=== PATIENT | male | born 1980 | race Caucasian/White ===

== ENCOUNTER 2024-09-12 10:07 | Observation (INO) ==
--- NOTE | 2024-09-12 10:22 | Emergency Department Note ---
Impression & Plan Alcoholic intoxication ED Provider Note CHIEF COMPLAINT: Alcohol intoxication HISTORY OF PRESENTING ILLNESS: The patient is a 44-year-old male who arrives to the emergency department for evaluation of alcohol intoxication. Patient arrived via EMS after attempting to go to [facility] of the cold however he was declined as he was intoxicated upon arrival. The patient then walked across the street, and made his way into an apartment complex stairwell. The police were then called, and upon police and EMS arrival, the patient was sitting on the sidewalk outside of the apartment complex. The patient does have warrants for his arrest, however courts are closed due to a holiday, and the patient cannot be evaluated due to this. EMS states the patient does have a history of chronic intoxication, with aggressive behavior. The patient shows no sign of trauma, he does appear to be visibly intoxicated, however he is agreeable to evaluation at this time. REVIEW OF SYSTEMS: See HPI for pertinent positives and pertinent negatives. ALLERGIES: See below MEDICATIONS: See below PAST MEDICAL HISTORY: See below PHYSICAL EXAM: VITALS: Vitals are noted on the nurse's note and reviewed by myself. Vital signs stable. GENERAL: 44-year-old male, in no acute distress, visibly intoxicated. SKIN: The skin was without rashes, erythema, edema, or bruising. HEAD: Normocephalic atraumatic. EYES: Pupils equal round and reactive to light and accommodation. Conjunctivae without injection, sclerae without icterus. Extraocular movements intact. NECK: Supple without nuchal rigidity. Cervical spine is nontender. HEART: Tachycardia with regular without murmurs gallops or rubs. LUNGS: Clear to auscultation bilaterally without wheezes, rales or rhonchi. No retractions or accessory muscle use. ABDOMEN: Positive bowel sounds x 4. Soft, nontender, without masses or organomegaly. Tsang sign negative. No guarding or rebound tenderness. MUSCULOSKELETAL: No muscle atrophy, erythema, or edema noted. Full range of motion without joint tenderness in all extremities. No tenderness to palpation. Strength 5/5 throughout. NEURO: Patient was alert and oriented to baseline. No focal neurological deficits. DIFFERENTIAL DIAGNOSIS: Differential diagnosis includes alcohol intoxication, drug intoxication, hypoglycemia, infectious process, intracranial bleed, psychosis, among others. ED COURSE AND MEDICAL DECISION MAKING: HISTORY FROM INDEPENDENT HISTORIAN: EMS MONITOR: Continuous environmental monitoring technician: Order was placed for continuous environmental monitoring technician. Patient was placed on the environmental monitoring technician and continuous pulse ox. Patient was noted to be in normal sinus rhythm at an initial rate of 110 bpm per my interpretation. INTERPRETATION OF LABS: I interpreted the labs with full lab results as below in the lab section of this note. Pertinent lab results discussed in the MDM section below. CHRONIC MEDICAL/SOCIAL CONDITIONS AFFECTING CARE: Alcohol abuse, alcohol intoxication MDM SUMMARY: The patient is a cooperative, 44-year-old male who arrives to the emergency department for evaluation of the above-stated complaint. Initial workup for alcohol intoxication was performed including CBC, CMP, and EtOH. CBC shows no leukocytosis, with pancytopenia. CMP shows hypokalemia 3.4, elevated anion gap 19. Hypocalcemia, 8.4. Total bili 3.4, AST 129, alkaline phosphatase 150. EtOH 473.6. The patient was watched for the course of 5 hours, and allowed to rest, eat, and taken oral fluids. Upon reevaluation I spoke with the patient regarding alcohol detox, with medical management. The patient states he would like to quit drinking, and is agreeable to admission to the hospital for medical detox. Orders were placed for a loss scale, cardiac monitoring, as well as thiamine, multivitamin, and gabapentin administration. I spoke with Dr. Alvares, who agreed to speak with the patient, and accept him for admission. Please refer to his documentation for further patient workup and care DIAGNOSIS: Alcohol intoxication, detox The chart was completed utilizing [employer] Speech voice recognition software. Grammatical errors, random word insertions, pronoun errors, and incomplete sentences are an occasional consequence of this system due to software limitations, ambient noise, and hardware issues. Any formal questions or concerns about the content, text, or information contained within the body of this dictation should be directly addressed to the provider for clarification. TREATMENT PLAN/DISCHARGE INSTRUCTIONS: Admission to hospitalist service for medical detox Past Med/Surg History Problem List (Updated 09/12/24 @ 16:55 by DEREK Payton) Alcohol abuse (Acute) Alcohol abuse (Acute) Alcohol abuse (Acute) Alcohol overdose Alcohol withdrawal syndrome (Acute) Alcoholic intoxication (Acute) Alcoholic intoxication (Acute) Alcoholic intoxication (Acute) Alcoholic intoxication (Acute) Alcoholism /alcohol abuse (Acute) Alcoholism /alcohol abuse (Acute) Head injury (Acute) Overdose (Acute) Social History Smoking Status: Never smoker Feels Safe at Home: Yes Allergies Allergies Allergy/AdvReac Type Severity Reaction Status Date / Time horse dander Allergy Mild HAPPENED Verified 12/18/18 23:05 A CHILD Home Meds Home Medications Medication Instructions Recorded Confirmed No Known Home Medications 09/12/24 09/12/24 Results & Data (ED) Vital Signs Vital Signs - 24 hr 09/12/24 10:07 09/12/24 10:22 09/12/24 10:35 Temperature 36.9 C Temperature Source Oral Pulse Rate 110 H Pulse Rate [Apical] Respiratory Rate 19 Respiratory Effort / Characteristics Non-Labored Spontaneous Respiratory Depth Normal Respiratory Pattern Regular Blood Pressure 109/77 Blood Pressure [Right Arm] Blood Pressure Mean 87 Blood Pressure Mean [Right Arm] Blood Pressure Position [Right Arm] Pulse Oximetry 95 Oxygen Delivery Method Room Air Room Air Room Air Sepsis Recent Fever Within 48 Hours No Sepsis New/Unexplained Change in Mental Status No Sepsis Action Taken by Nursing No Action Required 09/12/24 10:35 09/12/24 10:41 09/12/24 12:30 Temperature Temperature Source Pulse Rate 108 H 106 H Pulse Rate [Apical] 108 H Respiratory Rate 12 15 Respiratory Effort / Characteristics Respiratory Depth Respiratory Pattern Blood Pressure 99/70 L Blood Pressure [Right Arm] 133/88 Blood Pressure Mean 83 Blood Pressure Mean [Right Arm] 103 Blood Pressure Position [Right Arm] Semi-fowlers Pulse Oximetry 94 96 Oxygen Delivery Method Room Air Room Air Sepsis Recent Fever Within 48 Hours Sepsis New/Unexplained Change in Mental Status Sepsis Action Taken by Nursing 09/12/24 14:30 09/12/24 15:46 Temperature Temperature Source Pulse Rate 98 H Pulse Rate [Apical] 90 Respiratory Rate 15 Respiratory Effort / Characteristics Respiratory Depth Respiratory Pattern Blood Pressure Blood Pressure [Right Arm] 154/79 H Blood Pressure Mean Blood Pressure Mean [Right Arm] 104 Blood Pressure Position [Right Arm] Semi-fowlers Pulse Oximetry 91 Oxygen Delivery Method Room Air Sepsis Recent Fever Within 48 Hours Sepsis New/Unexplained Change in Mental Status Sepsis Action Taken by [facility] Medications Current Medication List: was personally reviewed by me Laboratory Data Attestation: I reviewed the patient's lab results. 09/12/24 10:24 09/12/24 10:24 Lab Results 06/19/25 Range/Units 10:24 WBC 7.98 (4.8-10.8) K/ul RBC 2.84 L (4.70-6.10) M/uL Hgb 9.9 L (14.0-18.0) g/dl Hct 28.0 L (42.0-52.0) % MCV 98.6 (80.0-100.0) fL MCH 34.9 H (25.0-34.0) pg MCHC 35.4 (32.0-36.0) g/dL RDW Std Deviation 49.4 H (36.4-46.3) fL RDW Coeff of Milagros 13.8 (11.5-14.5) % Plt Count 61 L (130-400) K/uL MPV 11.0 (9.4-12.4) fL Immature Gran % (Auto) 0.5 % Neut % (Auto) 70.1 % Lymph % (Auto) 15.9 % [place] % (Auto) 10.2 % Eos % (Auto) 1.9 % Baso % (Auto) 1.4 % Neut # (Auto) 5.60 (1.40-6.50) K/uL Lymph # (Auto) 1.27 (1.20-3.40) K/uL [place] # (Auto) 0.81 H (0.11-0.59) K/uL Eos # (Auto) 0.15 (0.00-0.50) K/uL Baso # (Auto) 0.11 (0.00-0.20) K/uL Immature Gran # (Auto) 0.04 (0.01-0.20) K/uL Platelet Estimate Decreased L (Normal) Target Cells 1+ Sodium 139 (136-145) mmol/L Potassium 3.4 L (3.5-5.1) mmol/L Chloride 98 (98-107) mmol/L Carbon Dioxide 22 (21-32) mmol/L Anion Gap 19 H (3-11) BUN 10 (6-23) mg/dl Creatinine 0.79 (0.6-1.4) mg/dl Est Cr Clr Drug Dosing 120.5 ml/min eGFR 110.95 BUN/Creatinine Ratio 12.7 (10-20) Glucose 97 (70-99(Fasting)) mg/dl Calcium 8.4 L (8.6-10.3) mg/dl Total Bilirubin 3.4 H (0.2-1.0) mg/dl AST 129 H (13-39) U/L ALT 24 (7-52) U/L Alkaline Phosphatase 150 H (34-104) U/L Total Protein 7.0 (6.0-8.3) gm/dl Albumin 3.8 (3.4-5.0) gm/dl Globulin 3.2 (2.5-4.0) gm/dl Albumin/Globulin Ratio 1.2 (0.9-2) Ethyl Alcohol mg/dL 473.6 H (<10.0) mg/dl Administered Medications Multivitamins (Multivitamin Tab) 1 tab PO QAM KENNY Stop: 10/12/24 15:59 Last Admin: 09/12/24 16:28 Dose: 1 tab Documented By: CEF Discontinued Medications Gabapentin (Gabapentin 1200mg Alcohol Withdrawal Load) 1 each PO NOW STA; Protocol Stop: 09/12/24 15:51 Last Admin: 09/12/24 16:30 Dose: Not Given Documented By: CEF Gabapentin (Gabapentin 600 Mg Tab) 1,200 mg PO NOW ONE Stop: 09/12/24 15:51 Last Admin: 09/12/24 16:18 Dose: 1,200 mg Documented By: CEF Thiamine HCl 500 mg/ Sodium (Chloride) 55 mls @ 210 mls/hr IV NOW ONE Stop: 09/12/24 16:05 Last Admin: 09/12/24 16:28 Dose: 210 mls/hr Documented By: CEF Imaging Data Attestation: I personally reviewed and interpreted this imaging study as follows: Discharge Plan Visit Data Chief Complaint: Alcohol Intoxication ED Provider: Jim Go ED Midlevel Provider: Daria Dodge Discharge Problem: Alcoholic intoxication Condition: Fair Forms Stand Alone Forms: My [facility] Prescriptions Prescriptions: No Action No Known Home Medications Referrals Referrals: PCP,NO [Primary Care Provider] -
[2024-09-12 11:06] LABS: Albumin Globulin Ratio 1.2 (0.9-2); Albumin Level 3.8 gm/dl (3.4-5.0); BUN Creatinine Ratio 12.7 (10-20); Bilirubin,Total 3.4 mg/dl (0.2-1.0); Calcium 8.4 mg/dl (8.6-10.3); Creatinine Clr Calc Pharmacy 120.5 ml/min; Globulin 3.2 gm/dl (2.5-4.0); Potassium 3.4 mmol/L (3.5-5.1)
[2024-09-12 11:14] LABS: Hemoglobin 9.9 g/dl (14.0-18.0); Mean Corpuscular Hemoglobin 34.9 pg (25.0-34.0); Mean Corpuscular Hgb Conc 35.4 g/dL (32.0-36.0); Mean Corpuscular Volume 98.6 fL (80.0-100.0); Platelet Count 61 K/uL (130-400); RDW Coefficient of Variation 13.8 % (11.5-14.5); RDW Standard Deviation 49.4 fL (36.4-46.3); Red Blood Count 2.84 M/uL (4.70-6.10); White Blood Count 7.98 K/ul (4.8-10.8)
[2024-09-12 11:40] LABS: Basophils # (auto) 0.11 K/uL (0.00-0.20); Basophils % (auto) 1.4 %; Eosinophils # (auto) 0.15 K/uL (0.00-0.50); Eosinophils % (auto) 1.9 %; Immature Granulocytes # (auto) 0.04 K/uL (0.01-0.20); Immature Granulocytes % (auto) 0.5 %; Lymphocytes # (auto) 1.27 K/uL (1.20-3.40); Lymphocytes % (auto) 15.9 %; Monocytes # (auto) 0.81 K/uL (0.11-0.59); Monocytes % (auto) 10.2 %; Neutrophils % (auto) 70.1 %; Platelet Estimate Decreased (Normal); Target Cells 1+
[2024-09-12] MEDS: GABAPENTIN 600 MG TAB PO ONE (16:18)
[2024-09-12] MEDS: MULTIVITAMIN TAB PO SCH (16:28)
[2024-09-12] MEDS: THIAMINE HCL 500 MG in SODIUM CHLORIDE 0.9% 50 ML IV ONE (16:28)
[2024-09-12] MEDS: GABAPENTIN 1200MG ALCOHOL WITHDRAWAL LOAD PO STA (16:30)
[2024-09-12] MEDS: FOLIC ACID 1 MG in SYRINGE 9.8 ML IV STA (17:41)
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
[2024-09-12 18:15] LABS: Magnesium 1.2 mg/dl (1.7-2.4)
--- NOTE | 2024-09-12 18:32 | CT Scan Report ---
Technique: Axial computed tomography images were obtained of the brain without intravenous contrast. Findings: There is diffuse cerebral atrophy, within expected limits for the patient's age. Areas of decreased attenuation are seen within the periventricular white matter, likely representing chronic small vessel ischemic disease. There is no definite sign of acute or old infarction. No intracranial hemorrhage is evident. No definite mass lesion is seen on this noncontrast examination. There is no midline shift or other form of herniation. No hydrocephalus is seen. No fracture is identified. The orbits and the visualized paranasal sinuses appear unremarkable. The mastoid air cells appear clear. Impression: 1. Cerebral atrophy and chronic small vessel ischemic disease 2. Otherwise unremarkable noncontrast CT of the brain Electronically signed by Eliot Ch 09-12-2024 6:32 PM
--- NOTE | 2024-09-12 18:40 | CT Scan Report ---
Technique: Axial computed tomography images were obtained of the abdomen and pelvis without intravenous contrast. No prior examination is available for comparison Findings: There is fatty infiltration of the liver and suspected mild cirrhosis. There is a recannulized umbilical vein and there are abdominal varices, consistent with portal hypertension. There is a possible 1.7 cm mass in the right hepatic lobe. There is also a 1 cm high attenuation area in the posterior liver dome. There are small gallstones. There is no definite sign of acute cholecystitis. No bile duct dilatation is noted. The spleen is of normal size. No focal splenic lesion is evident. The pancreas appears normal with no sign of acute or chronic pancreatitis and no mass lesion noted. The pancreatic duct is of normal caliber. The adrenal glands appear unremarkable. No renal or proximal ureteral calculi are seen. There is no hydronephrosis or perinephric stranding. No definite renal mass lesion is identified. The aorta is of normal caliber. No abdominal adenopathy is seen. The stomach appears normal. There is no sign of small bowel obstruction. There is suspected mild wall thickening of the jejunum. There is mild diverticulosis without definite diverticulitis. There is no sign of appendicitis. No free intraperitoneal fluid or air is identified. No distal ureteral or bladder calculi are seen. No obvious bladder mass lesion is evident. The iliac arteries are of normal caliber. No pelvic adenopathy is noted. The lungs bases appear clear. Mild thoracolumbar degenerative disc disease is seen. No fracture is identified. No focal osseous lesion is seen Impression: 1. Cirrhosis and portal hypertension 2. Possible masses in the right hepatic lobe. Liver protocol abdominal MRI with and without contrast could be obtained for further evaluation 3. Cholelithiasis without definite acute cholecystitis 4. Suspected mild small bowel wall thickening, admitted due to infectious enteritis or inflammatory bowel disease 5. Diverticulosis without definite diverticulitis ACT 112: Positive. There are findings on this exam that require communication between the performing entity and the patient following Patient Test Result Information Act ([place] ACT 112) guidelines. Electronically signed by Eliot Ch 09-12-2024 6:40 PM
--- NOTE | 2024-09-12 18:45 | CT Scan Report ---
Technique: Axial computed tomography images were obtained of the cervical spine without intravenous contrast. Sagittal and coronal reconstructions were obtained Findings: No fracture is identified. No listhesis is seen. No focal osseous lesion is evident. 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 There is no spinal stenosis. The neural foramen are patent At C3-4, no disc herniation is identified. There is no spinal stenosis. The neural foramen are patent At C4-5, there is a mild disc bulge. There is no spinal stenosis. The neural foramen are patent At C5-6, there is mild spinal stenosis due to a disc bulge and a right paracentral disc protrusion. The neural foramen are patent At C6-7, there is a disc bulge without spinal stenosis. The neural foramen are patent At C7-T1, there is a mild disc bulge. There is no spinal stenosis. The neural foramen are patent The lung apices appear clear. The visualized soft tissues of the neck appear unremarkable. No foreign body is seen Impression: 1. No definite cervical spine fracture 2. Mild spinal stenosis at C5-6 Electronically signed by Eliot Ch 09-12-2024 6:45 PM
--- NOTE | 2024-09-12 18:56 | CT Scan Report ---
Technique: Axial computed tomography images were obtained of the lumbar spine without intravenous contrast. Sagittal and coronal reconstructions were obtained Findings: No definite acute fracture is identified. There is deformity of the right transverse process of L4 that may be due to an old fracture. No listhesis is seen. No focal osseous lesion is evident. There is no definite sign of osteomyelitis At L1-2, there is a mild disc bulge. There is no spinal stenosis. The neural foramen are patent At L2-3, there is a disc bulge without spinal stenosis. There is mild bilateral neural foramen narrowing At L3-4, there is a disc bulge without spinal stenosis. There is mild bilateral neural foramen narrowing At L4-5, there is a disc bulge without spinal stenosis. There is right greater than left neural foramen narrowing that may affect the right L4 nerve root At L5-S1, there is a disc bulge without spinal stenosis. There is mild bilateral neural foramen narrowing Impression: 1. No definite acute lumbar spine fracture 2. Old fracture of the right transverse process of L4 3. Lumbar disc bulges without spinal stenosis 4. Right L4-5 neural foramen narrowing that may affect the right neural nerve root. Less severe neural foramen narrowing is seen at other levels ACT 112: Positive. There are findings on this exam that require communication between the performing entity and the patient following Patient Test Result Information Act ([place] ACT 112) guidelines. Electronically signed by Eliot Ch 09-12-2024 6:55 PM
[2024-09-12] MEDS: FAMOTIDINE 20MG IV PUSH 20 MG/5 ML SYR IV SCH (19:10)
[2024-09-12] MEDS: MAGNESIUM SULFATE / D5W 1 GM/100 ML BAG IV SCH (20:32)
[2024-09-12] MEDS ORDERED: ONDANSETRON INJ 2 MG/ML 2 ML VIAL IV PRN (21:47)
[2024-09-12] MEDS ORDERED: MELATONIN 3 MG TAB PO PRN (21:47)
[2024-09-12] MEDS ORDERED: LORazepam 2 MG/1 ML VIAL IV PRN (21:47)
[2024-09-13] MEDS: THIAMINE HCL 500 MG in SODIUM CHLORIDE 0.9% 50 ML IV SCH (00:17)
[2024-09-13] MEDS: GABAPENTIN 600 MG TAB PO SCH ×2 (00:17→12:15)
[2024-09-13 07:09] LABS: Basophils # (auto) 0.07 K/uL (0.00-0.20); Basophils % (auto) 1.3 %; Eosinophils # (auto) 0.25 K/uL (0.00-0.50); Eosinophils % (auto) 4.6 %; Hematocrit (blood only) 27.4 % (42.0-52.0); Hemoglobin 9.4 g/dl (14.0-18.0); Immature Granulocytes # (auto) 0.01 K/uL (0.01-0.20); Immature Granulocytes % (auto) 0.2 %; Lymphocytes # (auto) 1.31 K/uL (1.20-3.40); Lymphocytes % (auto) 23.9 %; Mean Corpuscular Hemoglobin 34.4 pg (25.0-34.0); Mean Corpuscular Hgb Conc 34.3 g/dL (32.0-36.0); Mean Corpuscular Volume 100.4 fL (80.0-100.0); Mean Platelet Volume 10.5 fL (9.4-12.4); Monocytes # (auto) 0.45 K/uL (0.11-0.59); Monocytes % (auto) 8.2 %; Neutrophils # (auto) 3.39 K/uL (1.40-6.50); Neutrophils % (auto) 61.8 %; Platelet Count 41 K/uL (130-400); RDW Coefficient of Variation 13.7 % (11.5-14.5); RDW Standard Deviation 50.4 fL (36.4-46.3); Red Blood Count 2.73 M/uL (4.70-6.10); White Blood Count 5.48 K/ul (4.8-10.8)
[2024-09-13 07:23] LABS: Albumin Globulin Ratio 1.2 (0.9-2); Albumin Level 3.4 gm/dl (3.4-5.0); Bilirubin,Total 2.8 mg/dl (0.2-1.0); Calcium 7.9 mg/dl (8.6-10.3); Creatinine Clr Calc Pharmacy 179.6 ml/min; Globulin 2.8 gm/dl (2.5-4.0); Magnesium 1.6 mg/dl (1.7-2.4); Potassium 3.3 mmol/L (3.5-5.1); Total Protein 6.2 gm/dl (6.0-8.3)
[2024-09-13 07:49] LABS: INR 1.2 (0.9-1.1)
[2024-09-13 08:28] LABS: Phosphorus 4.5 mg/dl (2.5-4.9)
[2024-09-13] MEDS: FOLIC ACID 1 MG in SYRINGE 9.8 ML IV SCH (08:52)
[2024-09-13] MEDS: POTASSIUM CHLORIDE CRTAB 20 MEQ TABCR PO STA (08:52)
[2024-09-13] MEDS: CALCIUM GLUCONATE 1,000 MG/60 ML BAG IV STA (08:52)
[2024-09-13] MEDS: MAGNESIUM SULFATE / D5W 1 GM/100 ML BAG IV SCH (09:39)
[2024-09-13 11:34] LABS: C Reactive Protein 1.3 mg/dl (0-0.5)
[2024-09-13 13:49] LABS: Appearance Urine Clear (Clear); Bacteria Urine Automated None Seen (None Seen); Bilirubin Urine 1+ (Negative); Blood Urine Negative (Negative); Cast Urine Automated 0-2 /lpf (0-2); Color Urine Dark Yellow; Glucose Urine UA Negative (Negative); Ketones Urine 1+ (Negative); Leukocyte Esterase Urine 1+ (Negative); Nitrite Urine Negative (Negative); Protein Urine Negative (Negative); RBC Urine Automated 0-2 /hpf (0-2); Specific Gravity Urine 1.022 (1.000-1.030); Urobilinogen Urine Positive (Negative)
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
[2024-09-13 16:04] VITALS: PULSE 102; RESP 18; TEMP 99; O2SAT 97
[2024-09-13 18:22] VITALS: BP 101/69
[2024-09-14] MEDS ORDERED: GABAPENTIN 600 MG TAB PO SCH (16:00)
[2024-09-16] MEDS ORDERED: GABAPENTIN 600 MG TAB PO SCH (04:00)
== END 2024-09-13 18:32 | DRG 896 ==
LOC: ED 10:07 → INTOOBSV 17:55 → 2S 17:55 → SUATTDRO 17:55 → 2S 20:30

== ENCOUNTER 2024-10-02 23:39 | Inpatient (IN) ==
--- NOTE | 2024-10-03 00:04 | Emergency Department Note ---
Impression & Plan Alcoholic intoxication, At risk for alcohol withdrawal, Hypomagnesemia, Hypokalemia, Thrombocytopenia, Alcoholic hepatitis ED Provider Note NAME: BARRY FERRELL AGE: 44 SEX: M : 1980 ARRIVES VIA: Ambulance INFORMANT: Patient ED PROVIDER(S): Jim Go MD CHIEF COMPLAINT: Intoxication, weakness, referred by police PLAN: Disposition: Admit MEDICAL DECISION MAKING: The patient is a 44-year-old gentleman with a past medical history of alcoholism, alcoholic hepatitis, thrombocytopenia, hypomagnesemia, homelessness who presents to the emergency department via EMS after patient was found intoxicated [place] outside [place] by police. Patient reports he was a couple blocks from his friend's house apartment where he was going to stay but reports he decided to go along with police's recommendation to come to the hospital. Patient reports he has ongoing generalized weakness as he has had since his recent admission on 09/12-09/13 where he was noted to have transaminitis consistent with chronic alcoholic hepatitis as well as hypomagnesemia and hypokalemia. Patient denies any falls since his prior admission. Denies any fevers, chills, cough congestion, chest pain or shortness of breath. He reports he does have a room at his father's house but is "giving him space". He reports he [place] sleep in the park last night with friends. On evaluation the patient is intoxicated appearing, unkempt but no acute distress, afebrile heart rate in the 90s and vital signs otherwise stable. He appears clinically dry. He exhibits no focal neurologic deficits. EKG without overt acute ischemia. WBC within normal limits. H/H 9.5/27.3 similar to prior. Platelets 71K, also similar to prior. INR 1.4, increased from prior admission of 1.2. Chemistry without metabolic acidosis. Potassium 2.8 and magnesium 1.0, with IV repletion initiated. LFTs again elevated similar to prior admission with total bilirubin 4.3, direct eleven 2.2 and AST 147 with ALT within normal limits. High- sensitivity troponin 6.2, wnl. TSH within normal limits. Medical alcohol 374. UA pending. Patient was treated with IV hydration, IV thiamine. Given the patient's electrolyte abnormalities in setting of his generalized weakness patient agrees plan for admission for further management. Case was discussed with Dr. Pérez, [facility] [place] [place] hospitalist, who will evaluate the patient for admission. Further management per admitting team. Triage Nursing notes reviewed and agree them. Prior/external medical records reviewed Vital Signs: reviewed Differential diagnosis: Infection, dehydration, metabolic abnormality, hypo/hyperglycemia, electrolyte disturbance, anemia, hypoxia, cardiac sources, intracerebral event, toxicologic, neurologic, as well as other pathologies. ER treatment provided: See below. Diagnostics interpreted by me: ECG: Normal sinus rhythm with sinus arrhythmia, 73 bpm, no ectopy, nonspecific ST abnormality, no overt ST elevation or depression, QTc 491, QRS 84 Cardiac Monitoring: An order for continuous cardiac monitoring was placed and demonstrated Normal sinus rhythm with sinus arrhythmia, 73 bpm, no ectopy. Laboratory studies: See below Imaging studies: See below Consultation(s): Dr. Pérez [facility] [place] hospitalist. HPI: Per MDM. ROS: See above HPI for pertinent positives & negatives. A total of 10 systems reviewed and were otherwise negative. VITALS:See Below PHYSICAL EXAMINATION: GENERAL: Awake, alert, unkempt, intoxicated appearing, in no distress HENT: Normocephalic, atraumatic. Oropharynx with dry mucous membranes and otherwise unremarkable EYES: Normal conjunctiva. Sclera non-icteric. EOMI. No nystamgus. PEARRL. NECK: Supple. No nuchal rigidity. FROM. No JVD. RESPIRATORY: Clear to auscultation. CARDIAC: Regular rate, normal rhythm. Extremities warm and well perfused. Pulses equal. ABDOMEN: Soft, non-distended. No tenderness to palpation. No rebound or guarding. No masses. MUSCULOSKELETAL: Chest examination reveals no tenderness. The back is symmetrical on inspection without obvious abnormality. There is no CVA tenderness to palpation. No joint edema. LOWER EXTREMITIES: Calves are equal size bilaterally and non-tender. No edema. No discoloration. NEURO: Cranial nerves II-XII grossly intact. 5/5 strength and SILT x 4 extremities. Cerebellar function intact including [id number]. SKIN: No rash or jaundice noted. Jim Go MD Past Med/Surg History Problem List (Updated 10/04/24 @ 03:31 by Jim Go MD) At risk for alcohol withdrawal (Acute) Diarrhea Homeless Hypomagnesemia (Acute) Hypokalemia (Acute) Thrombocytopenia (Acute) Anemia Alcoholic hepatitis (Acute) Alcoholic intoxication (Acute) Medical History Tobacco use Bilateral leg numbness Overdose Head injury Alcoholism /alcohol abuse Social History Smoking Status: Current some day smoker Tobacco Type: Cigarettes Hx Alcohol Use: Yes Alcohol type: hard liquor Alcohol type Comment: started high school years Alcohol Intake Frequency: 4 or More x per/Week Hx Substance Use: Yes Last Used Substance: Unknown Preferred Language: Nicaraguan Communication Ability: Effective Sales Associate Required: No Beliefs That Will Affect Care: None marital status: Single Current Living Situation: Homeless Feels Safe at Home: Yes Assistive Devices: None Allergies Allergies Allergy/AdvReac Type Severity Reaction Status Date / Time horse dander Allergy Mild HAPPENED Verified 10/03/24 01:45 A CHILD Home Meds Previous Rx's Medication Instructions Recorded folic acid 1 mg tablet 1 mg PO DAILY #30 tabs 09/13/24 gabapentin 600 mg tablet 600 mg PO Q12H #2 tabs 09/13/24 gabapentin 600 mg tablet 600 mg PO Q24H #1 tab 09/13/24 gabapentin 600 mg tablet 600 mg PO Q8H #2 tabs 09/13/24 multivitamin with folic acid 400 1 tab PO QAM #30 tabs 09/13/24 mcg tablet (Daily-Mateus (with folic acid)) thiamine HCl (vitamin B1) 250 mg 250 mg PO BID #60 tabs 09/13/24 tablet Results & Data (ED) Vital Signs Vital Signs - 24 hr 10/02/24 23:32 10/02/24 23:53 10/03/24 00:17 Temperature 36.5 C Temperature Source Oral Pulse Rate 94 H Pulse Rate [Apical] Pulse Rhythm Regular Pulse Rhythm [Apical] Pulse Strength Normal Pulse Strength [Apical] Respiratory Rate 17 Respiratory Effort / Characteristics Non-Labored Respiratory Depth Normal Respiratory Pattern Regular Blood Pressure 108/77 Blood Pressure [Right Arm] Blood Pressure Mean 87 Blood Pressure Mean [Right Arm] Blood Pressure Position Sitting Blood Pressure Position [Right Arm] Pulse Oximetry 99 99 99 Oxygen Delivery Method Room Air Room Air Room Air Sepsis Recent Fever Within 48 Hours No Sepsis New/Unexplained Change in Mental Status N/A Sepsis Action Taken by Nursing No Action Required 10/03/24 01:00 10/03/24 01:32 Temperature Temperature Source Pulse Rate 91 H Pulse Rate [Apical] 90 Pulse Rhythm Pulse Rhythm [Apical] Regular Pulse Strength Pulse Strength [Apical] Normal Respiratory Rate 18 Respiratory Effort / Characteristics Non-Labored Respiratory Depth Normal Respiratory Pattern Regular Blood Pressure Blood Pressure [Right Arm] 108/77 Blood Pressure Mean Blood Pressure Mean [Right Arm] 87 Blood Pressure Position Blood Pressure Position [Right Arm] Lying Pulse Oximetry 97 Oxygen Delivery Method Room Air Sepsis Recent Fever Within 48 Hours Sepsis New/Unexplained Change in Mental Status Sepsis Action Taken by Nursing Laboratory Data Attestation: I reviewed the patient's lab results. 10/04/24 00:00 10/03/24 14:06 Lab Results 10/03/24 10/03/24 Range/Units 00:12 00:41 WBC 6.22 (4.8-10.8) K/ul RBC 2.70 L (4.70-6.10) M/uL Hgb 9.5 L (14.0-18.0) g/dl Hct 27.3 L (42.0-52.0) % MCV 101.1 H (80.0-100.0) fL MCH 35.2 H (25.0-34.0) pg MCHC 34.8 (32.0-36.0) g/dL RDW Std Deviation 60.9 H (36.4-46.3) fL RDW Coeff of Milagros 16.6 H (11.5-14.5) % Plt Count 71 L (130-400) K/uL MPV 10.1 (9.4-12.4) fL Immature Gran % (Auto) 0.5 % Neut % (Auto) 59.1 % Lymph % (Auto) 23.2 % [place] % (Auto) 13.7 % Eos % (Auto) 2.1 % Baso % (Auto) 1.4 % Neut # (Auto) 3.68 (1.40-6.50) K/uL Lymph # (Auto) 1.44 (1.20-3.40) K/uL [place] # (Auto) 0.85 H (0.11-0.59) K/uL Eos # (Auto) 0.13 (0.00-0.50) K/uL Baso # (Auto) 0.09 (0.00-0.20) K/uL Immature Gran # (Auto) 0.03 (0.01-0.20) K/uL PT 15.1 H (9.0-12.0) Seconds INR 1.4 H (0.9-1.1) Sodium 143 (136-145) mmol/L Potassium 2.8 L (3.5-5.1) mmol/L Chloride 101 (98-107) mmol/L Carbon Dioxide 29 (21-32) mmol/L Anion Gap 13 H (3-11) BUN 16 (6-23) mg/dl Creatinine 0.87 (0.6-1.4) mg/dl Est Cr Clr Drug Dosing 98.1 ml/min eGFR 107.77 BUN/Creatinine Ratio 18.4 (10-20) Glucose 101 H (70-99(Fasting)) mg/dl Lactate 3.1 H* (0.4-2.0) mmol/L Calcium 8.1 L (8.6-10.3) mg/dl Phosphorus 4.2 (2.5-4.9) mg/dl Magnesium 1.0 L (1.7-2.4) mg/dl Total Bilirubin 4.3 H (0.2-1.0) mg/dl Direct Bilirubin 2.2 H (0-0.2) mg/dl AST 147 H (13-39) U/L ALT 32 (7-52) U/L Alkaline Phosphatase 137 H (34-104) U/L Total Creatine Kinase 127 (30-223) U/L Troponin I High Sens 6.2 (0-20) pg/ml Total Protein 6.7 (6.0-8.3) gm/dl Albumin 3.5 (3.4-5.0) gm/dl Globulin 3.2 (2.5-4.0) gm/dl Albumin/Globulin Ratio 1.1 (0.9-2) TSH 3.911 (0.300-4.500) uIu/ml Urine Color [place] Urine Appearance Clear (Clear) Urine pH 6.0 (4.5-7.5) Ur Specific [place] 1.022 (1.000-1.030) Urine Protein 1+ H (Negative) Urine Glucose (UA) Negative (Negative) Urine Ketones Trace H (Negative) Urine Blood Negative (Negative) Urine Nitrite Positive A (Negative) Urine Bilirubin 2+ H (Negative) Urine Urobilinogen Positive H (Negative) Ur Leukocyte Esterase 1+ H (Negative) Urine WBC (Auto) 0-5 (0-5) /hpf Urine RBC (Auto) 11-20 H (0-2) /hpf U Hyaline Cast (Auto) 11-20 H (0-2) /lpf U Epithel Cells (Auto) 3-5 H (0-2) /hpf Urine Bacteria (Auto) None Seen (None Seen) Hyaline Casts Present A (None Presnt) /lpf Urine Mucus Present A (None Prsent) Urine Comment Ethyl Alcohol mg/dL 374.4 H (<10.0) mg/dl Administered Medications Chlordiazepoxide HCl (Chlordiazepoxide Hcl 10 Mg Cap) 10 mg PO TID [facility] Stop: 11/02/24 08:59 Last Admin: 10/03/24 20:10 Dose: 10 mg Documented By: Admin: 10/03/24 14:30 Dose: 10 mg Documented By: Admin: 10/03/24 11:04 Dose: 10 mg Documented By: ROCIO Gabapentin (Gabapentin 100 Mg Cap) 100 mg PO TID [facility] Stop: 11/02/24 13:59 Last Admin: 10/03/24 20:10 Dose: 100 mg Documented By: Admin: 10/03/24 14:30 Dose: 100 mg Documented By: ROCIO Lactated Ringer's (Lr) 1,000 mls @ 80 mls/hr IV .[id number] [facility] Stop: 10/04/24 05:33 Last Admin: 10/03/24 20:10 Dose: 80 mls/hr Documented By: Infusion: 10/03/24 18:17 Dose: Infused Documented By: Admin: 10/03/24 05:47 Dose: 80 mls/hr Documented By: OBED Thiamine HCl 100 mg/ Syringe 10 mls @ 2 [facility] [place] [facility] [place]: 11/02/24 08:59 Last Admin: 10/03/24 09:31 Dose: 2 mls/min Documented By: ROCIO Folic Acid 1 mg/ Syringe 10 mls @ 5 mls/min IV QAM [facility] Stop: 11/02/24 08:59 Last Admin: 10/03/24 09:31 Dose: 5 mls/min Documented By: ROCIO Ceftriaxone Sodium (Rocephin) 1,000 mg in 50 mls @ 100 mls/hr IV Q24H [facility]NY Stop: 10/06/24 00:00 Last Infusion: 10/04/24 01:03 Dose: Infused Documented By: Admin: 10/04/24 00:27 Dose: 100 mls/hr Documented By: OBED Lorazepam (Lorazepam 2 Mg/1 Ml Vial) 1 mg IV UD PRN; Protocol PRN Reason: EtOH Withdrawal AWSS Score 6,7 Stop: 11/02/24 04:33 Last Admin: 10/04/24 00:07 Dose: 1 mg Documented By: Admin: 10/03/24 21:42 Dose: 1 mg Documented By: OBED Discontinued Medications Sodium Chloride (Nss) 2,000 mls @ 999 mls/hr IV .Q2H1M [facility] Stop: 10/03/24 02:15 Last Infusion: 10/03/24 02:59 Dose: Infused Documented By: Admin: 10/03/24 00:48 Dose: 999 mls/hr Documented By: ELIZABETH Thiamine HCl 500 mg/ Sodium (Chloride) 55 mls @ 210 mls/hr IV NOW STA Stop: 10/03/24 00:17 Last Infusion: 10/03/24 01:17 Dose: Infused Documented By: Admin: 10/03/24 00:48 Dose: 210 mls/hr Documented By: ELIZABETH Magnesium Sulfate/Dextrose (Magnesium Sulfate / D5w) 1 gm in 100 mls @ 100 mls/hr IV Q1H KENNY Stop: 10/03/24 03:22 Last Infusion: 10/03/24 05:34 Dose: Infused Documented By: Admin: 10/03/24 04:06 Dose: 100 mls/hr Documented By: Infusion: 10/03/24 04:05 Dose: Infused Documented By: Admin: 10/03/24 03:05 Dose: 100 mls/hr Documented By: ELIZABETH Magnesium Sulfate/Dextrose (Magnesium Sulfate / D5w) 1 gm in 100 mls @ 100 mls/hr IV NOW STA Stop: 10/03/24 02:22 Last Admin: 10/03/24 05:43 Dose: Not Given Documented By: OBED Potassium Chloride (K Vikram / Wtr) 10 meq in 100 mls @ 100 mls/hr IV Q1H KENNY Stop: 10/03/24 03:29 Last Infusion: 10/03/24 05:34 Dose: Infused Documented By: Admin: 10/03/24 04:06 Dose: 100 mls/hr Documented By: Infusion: 10/03/24 04:04 Dose: Infused Documented By: Admin: 10/03/24 03:04 Dose: 100 mls/hr Documented By: ELIZABETH Magnesium Sulfate/Dextrose (Magnesium Sulfate / D5w) 1 gm in 100 mls @ 50 mls/hr IV Q2H KENNY Stop: 10/03/24 12:33 Last Infusion: 10/03/24 16:32 Dose: Infused Documented By: Admin: 10/03/24 14:16 Dose: 50 mls/hr Documented By: Infusion: 10/03/24 13:39 Dose: Infused Documented By: Admin: 10/03/24 11:39 Dose: 50 mls/hr Documented By: Infusion: 10/03/24 11:31 Dose: Infused Documented By: Admin: 10/03/24 09:31 Dose: 50 mls/hr Documented By: Infusion: 10/03/24 07:44 Dose: Infused Documented By: Admin: 10/03/24 05:44 Dose: 50 mls/hr Documented By: OBED Potassium Chloride (Potassium Chloride Crtab 20 Meq Tabcr) 40 meq PO NOW STA Stop: 10/03/24 04:35 Last Admin: 10/03/24 05:40 Dose: 40 meq Documented By: OBED Potassium Chloride (Potassium Chloride Crtab 20 Meq Tabcr) 20 meq PO NOW STA Stop: 10/03/24 16:18 Last Admin: 10/03/24 16:32 Dose: 20 meq Documented By: ROCIO Discharge Plan Visit Data Chief Complaint: Alcohol Intoxication ED Provider: Jim Go Discharge Problem: Alcoholic intoxication, At risk for alcohol withdrawal, Hypomagnesemia, Hypokalemia, Thrombocytopenia, Alcoholic hepatitis Patient Disposition: Admitted As Inpatient Condition: Fair Discharge Instructions Interventions: ED Discharge Assessment Last Done: 10/03/24 04:01 Discharge Problem: Alcoholic intoxication Qualifiers: Complication of substance-induced condition: with unspecified complication Q ualified Code(s): F10.929 - Alcohol use, unspecified with intoxication, unspecified Alcoholic hepatitis Qualifiers: Ascites presence: unspecified Qualified Code(s): K70.10 - Alcoholic hepatitis without ascites
[2024-10-03 00:31] LABS: Hematocrit (blood only) 27.3 % (42.0-52.0); Hemoglobin 9.5 g/dl (14.0-18.0); Immature Granulocytes # (auto) 0.03 K/uL (0.01-0.20); Immature Granulocytes % (auto) 0.5 %; Mean Corpuscular Hemoglobin 35.2 pg (25.0-34.0); Mean Corpuscular Volume 101.1 fL (80.0-100.0); Platelet Count 71 K/uL (130-400); RDW Standard Deviation 60.9 fL (36.4-46.3); Red Blood Count 2.70 M/uL (4.70-6.10); White Blood Count 6.22 K/ul (4.8-10.8)
[2024-10-03 00:40] LABS: Appearance Urine Clear (Clear); Bacteria Urine Automated None Seen (None Seen); Glucose Urine UA Negative (Negative); WBC Urine Automated 0-5 /hpf (0-5)
[2024-10-03 00:47] LABS: Alanine Aminotransferase 32.0 U/L (7-52); Albumin Globulin Ratio 1.1 (0.9-2); Alkaline Phosphatase 137.0 U/L (34-104); Anion Gap 13.0 (3-11); Bilirubin,Total 4.3 mg/dl (0.2-1.0); Blood Urea Nitrogen 16.0 mg/dl (6-23); Calcium 8.1 mg/dl (8.6-10.3); Carbon Dioxide 29.0 mmol/L (21-32); Chloride 101.0 mmol/L (98-107); Creatine Kinase 127.0 U/L (30-223); Creatinine Clr Calc Pharmacy 98.1 ml/min; Globulin 3.2 gm/dl (2.5-4.0); Glucose 101.0 mg/dl (70-99(Fasting)); Magnesium 1.0 mg/dl (1.7-2.4); Potassium 2.8 mmol/L (3.5-5.1); Sodium 143.0 mmol/L (136-145); Total Protein 6.7 gm/dl (6.0-8.3)
[2024-10-03] MEDS: SODIUM CHLORIDE 0.9% 2,000 ML IV SCH (00:48)
[2024-10-03] MEDS: THIAMINE HCL 500 MG in SODIUM CHLORIDE 0.9% 50 ML IV STA (00:48)
[2024-10-03 01:03] LABS: Thyroid Stimulating Hormone 3.911 uIu/ml (0.300-4.500)
[2024-10-03 01:16] LABS: INR 1.4 (0.9-1.1); Prothrombin Time 15.1 Seconds (9.0-12.0)
--- NOTE | 2024-10-03 02:38 | History & Physical Report ---
Date of Service October 03, 2024 Assessment & Plan (1) At risk for alcohol withdrawal: (2) Alcoholic intoxication: (3) Hypomagnesemia: (4) Hypokalemia: (5) Bilateral leg numbness: Plan 44-year-old male with history of alcoholism and homelessness presenting with generalized weakness, worsening neuropathy symptoms, electrolyte abnormalities. Patient presently intoxicated with alcohol level of 374. No symptoms of withdrawal at this time. #Generalized weaknesslikely multifactorial. Poor p.o. intake, electrolyte abnormalities, dehydration and worsening neuropathy. Admit to PCU continue IV fluidsLR at 80 mL/h x 2 L Continue electrolyte repletion as below #At risk for alcohol withdrawal Maintain seizure precautions Check U tox Continue thiamine 100 mg IV daily Continue folic acid 1 mg IV daily Ativan as needed #Hypomagnesemiamagnesium = 1 2 g of magnesium given thus far. Will give additional 4 g Repeat magnesium level in the morning #Hypokalemia Patient has received 20 mEq IV thus far Will order additional 40 mEq Repeat chemistry in the morning #Abnormal LFTsabdomen/pelvis CT performed during last hospitalization on 09/12/2024 with cirrhosis and portal hypertension. Possible masses in the right hepatic lobe. repeat right upper quadrant ultrasound Repeat LFTs in the morning Patient should have an abdominal/liver MRI and alpha-fetoprotein can be performed outpatient #Bilateral leg numbnesspatient had some workup for this issueduring her last hospitalization including a CT of the brain, CT of the cervical spine and CT of the lumbar spine. Workup revealed an old fracture at L4. 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 Patient's B12 = 1378 on 09/13/2024 consider gabapentin Patient with unstable housing and social situation. May be beneficial to patient if we could schedule him for follow-up appointments prior to discharge to ensure that he continues care And also provide him with any discharge medications at time of discharge if possible.. History of Present Illness Chief Complaint: neuropathy Primary Care Provider: NO PCP Rui Tsang is a 44yo male with history of EtOH use, asthma, housing insecurity presenting with generalized weakness and neuropathy. Patient was recently admitted to [facility] from 09/12 - 09/13/2024 with acute alcohol intoxication as well as bilateral lower extremity numbness/neuropathy. He was managed conservatively and discharged home on outpatient withdrawal management. Patient also found to have a possible mass in the right hepatic lobe. He has been referred to [facility] to establish with a primary care physician and has their number but has not yet made an appointment. Patient returns today with generalized weakness and worsening neuropathy symptoms. He reports that he has pain and burning in his feet and legs bilaterally to the knees. Patient was moving some items today with some f riends. He reports that he sat down on the bench and fell asleep and when he woke up he was being loaded into an ambulance. No additional complaints at this time. He denies chest pain, palpitations, shortness of breath. He reports he has not been eating very well over the last several weeks. Continues to drink alcohol. Is unable to quantify the amount of alcohol that he drinks per day. States that he can go through a handle of liquor approximately every 3 days (appx 40 drinks/handle over 3 days = 13 drinks/day). No beer or wine intake. No additional substances used. Patient denies history of seizures or withdrawal. Last drink was earlier today. ER course: Normal saline x 2 L Thiamine 500 mg Potassium 20 mEq Magnesium x 2 g Allergies Allergy/AdvReac Type Severity Reaction Status Date / Time horse dander Allergy Mild HAPPENED Verified 10/03/24 01:45 A CHILD Home Medications Medication Instructions Recorded Confirmed Type folic acid 1 mg tablet 1 mg PO DAILY #30 tabs 09/13/24 10/03/24 Rx gabapentin 600 mg tablet 600 mg PO Q12H #2 tabs 09/13/24 10/03/24 Rx gabapentin 600 mg tablet 600 mg PO Q24H #1 tab 09/13/24 10/03/24 Rx gabapentin 600 mg tablet 600 mg PO Q8H #2 tabs 09/13/24 10/03/24 Rx multivitamin with folic acid 400 1 tab PO QAM #30 tabs 09/13/24 10/03/24 Rx mcg tablet (Daily-Mateus (with folic acid)) thiamine HCl (vitamin B1) 250 mg 250 mg PO BID #60 tabs 09/13/24 10/03/24 Rx tablet Past Med/Surg History Problem List At risk for alcohol withdrawal Diarrhea Homeless Hypomagnesemia Hypokalemia Thrombocytopenia Anemia Alcoholic hepatitis Alcoholic intoxication (Acute) Medical History Tobacco use Bilateral leg numbness Overdose Head injury Alcoholism /alcohol abuse Social History Smoking Status: Current some day smoker Tobacco Type: Cigarettes Hx Alcohol Use: Yes Alcohol type: hard liquor Alcohol type Comment: started high school years Alcohol Intake Frequency: 4 or More x per/Week Hx Substance Use: Yes Last Used Substance: Unknown Preferred Language: Armenian Communication Ability: Effective Home Companion Required: No Beliefs That Will Affect Care: None marital status: Single Current Living Situation: Homeless Feels Safe at Home: Yes Assistive Devices: None Review of Systems Review of Systems: All systems reviewed & are unremarkable except as noted in HPI & below Physical Exam Physical Exam: General: patient intoxicated, no acute distress, resting comfortably Skin: warm, dry, intact, no rashes or lesions HEENT: NC/AT, PERRL, EOMI, anicteric sclera, conjunctiva without injection, external ear normal to inspection and nontender, nares patent, dry mucus membranes, dentition intact, no oropharyngeal lesions, neck supple, trachea midline, no LAD, no thyromegaly, no JVD Heart: +S1/S2, regular, no m/r/g Lungs: equal air entry bilaterally, no rales/rhonchi/wheezes Abd: +BS, soft, NT/ND, no masses/organomegaly/ascites Ext: warm, 2+ pulses in UE/LE bilaterally, no clubbing/cyanosis, trace bilateral lower extremity edema Neuro: grossly nonfocal, no tremors or evidence of withdrawal at this time Results & Data Results & Data Vital Signs (Past 12 Hours) Vital Signs Temp Pulse Resp BP Pulse Ox O2 Del Method 10/03/24 01:00 91 H 10/03/24 00:17 99 Room Air 10/02/24 23:53 36.5 C 94 H 17 108/77 99 Room Air 10/02/24 23:32 99 Room Air Laboratory Results Laboratory Results WBC 6.22 K/ul (4.8-10.8) 10/03/24 00:12 RBC 2.70 M/uL (4.70-6.10) L 10/03/24 00:12 Hgb 9.5 g/dl (14.0-18.0) L 10/03/24 00:12 Hct 27.3 % (42.0-52.0) L 10/03/24 00:12 MCV 101.1 fL (80.0-100.0) H 10/03/24 00:12 MCH 35.2 pg (25.0-34.0) H 10/03/24 00:12 MCHC 34.8 g/dL (32.0-36.0) 10/03/24 00:12 RDW Std Deviation 60.9 fL (36.4-46.3) H 10/03/24 00:12 RDW Coeff of Milagros 16.6 % (11.5-14.5) H 10/03/24 00:12 Plt Count 71 K/uL (130-400) L 10/03/24 00:12 MPV 10.1 fL (9.4-12.4) 10/03/24 00:12 Immature Gran % (Auto) 0.5 % 10/03/24 00:12 Neut % (Auto) 59.1 % 10/03/24 00:12 Lymph % (Auto) 23.2 % 10/03/24 00:12 [place] % (Auto) 13.7 % 10/03/24 00:12 Eos % (Auto) 2.1 % 10/03/24 00:12 Baso % (Auto) 1.4 % 10/03/24 00:12 Neut # (Auto) 3.68 K/uL (1.40-6.50) 10/03/24 00:12 Lymph # (Auto) 1.44 K/uL (1.20-3.40) 10/03/24 00:12 [place] # (Auto) 0.85 K/uL (0.11-0.59) H 10/03/24 00:12 Eos # (Auto) 0.13 K/uL (0.00-0.50) 10/03/24 00:12 Baso # (Auto) 0.09 K/uL (0.00-0.20) 10/03/24 00:12 Immature Gran # (Auto) 0.03 K/uL (0.01-0.20) 10/03/24 00:12 PT 15.1 Seconds (9.0-12.0) H 10/03/24 00:12 INR 1.4 (0.9-1.1) H 10/03/24 00:12 Sodium 143 mmol/L (136-145) 10/03/24 00:12 Potassium 2.8 mmol/L (3.5-5.1) L 10/03/24 00:12 Chloride 101 mmol/L (98-107) 10/03/24 00:12 Carbon Dioxide 29 mmol/L (21-32) 10/03/24 00:12 Anion Gap 13 (3-11) H 10/03/24 00:12 BUN 16 mg/dl (6-23) 10/03/24 00:12 Creatinine 0.87 mg/dl (0.6-1.4) 10/03/24 00:12 Est Cr Clr Drug Dosing 98.1 ml/min 10/03/24 00:12 eGFR 107.77 10/03/24 00:12 BUN/Creatinine Ratio 18.4 (10-20) 10/03/24 00:12 Glucose 101 mg/dl (70-99(Fasting)) H 10/03/24 00:12 Lactate 2.4 mmol/L (0.4-2.0) H* 10/03/24 02:34 Calcium 8.1 mg/dl (8.6-10.3) L 10/03/24 00:12 Phosphorus 4.2 mg/dl (2.5-4.9) 10/03/24 00:12 Magnesium 1.0 mg/dl (1.7-2.4) L 10/03/24 00:12 Total Bilirubin 4.3 mg/dl (0.2-1.0) H 10/03/24 00:12 Direct Bilirubin 2.2 mg/dl (0-0.2) H 10/03/24 00:12 AST 147 U/L (13-39) H 10/03/24 00:12 ALT 32 U/L (7-52) 10/03/24 00:12 Alkaline Phosphatase 137 U/L (34-104) H 10/03/24 00:12 Total Creatine Kinase 127 U/L (30-223) 10/03/24 00:12 Troponin I High Sens 6.2 pg/ml (0-20) 10/03/24 00:12 Total Protein 6.7 gm/dl (6.0-8.3) 10/03/24 00:12 Albumin 3.5 gm/dl (3.4-5.0) 10/03/24 00:12 Globulin 3.2 gm/dl (2.5-4.0) 10/03/24 00:12 Albumin/Globulin Ratio 1.1 (0.9-2) 10/03/24 00:12 TSH 3.911 uIu/ml (0.300-4.500) 10/03/24 00:12 Urine Color [place] 10/03/24 00:12 Urine Appearance Clear (Clear) 10/03/24 00:12 Urine pH 6.0 (4.5-7.5) 10/03/24 00:12 Ur Specific Mcguffey 1.022 (1.000-1.030) 10/03/24 00:12 Urine Protein 1+ (Negative) H 10/03/24 00:12 Urine Glucose (UA) Negative (Negative) 10/03/24 00:12 Urine Ketones Trace (Negative) H 10/03/24 00:12 Urine Blood Negative (Negative) 10/03/24 00: Urine Nitrite Positive (Negative) A 10/03/24 00: Urine Bilirubin 2+ (Negative) H 10/03/24 00:12 Urine Urobilinogen Positive (Negative) H 10/03/24 00:12 Ur Leukocyte Esterase 1+ (Negative) H 10/03/24 00:12 Urine WBC (Auto) 0-5 /hpf (0-5) 10/03/24 00:12 Urine RBC (Auto) 11-20 /hpf (0-2) H 10/03/24 00:12 U Hyaline Cast (Auto) 11-20 /lpf (0-2) H 10/03/24 00:12 U Epithel Cells (Auto) 3-5 /hpf (0-2) H 10/03/24 00:12 Urine Bacteria (Auto) None Seen (None Seen) 10/03/24 00:12 Hyaline Casts Present /lpf (None Presnt) A 10/03/24 00: Urine Mucus Present (None Prsent) A 10/03/24 00:12 Urine Comment 10/03/24 00:12 Ethyl Alcohol mg/dL 374.4 mg/dl (<10.0) H 10/03/24 00:12 PG Care Time/CCT Total # of Minutes Spent Total Time Spent with Patient: Total time spent is greater than 50% in coordination of care (as documented) at patient's floor/unit and/or counseling patient: Coding Level of Care Code 90232 INT INP/OBS CARE MIN Diagnoses At risk for alcohol withdrawal Z91.89 Alcoholic intoxication F10.929 Hypomagnesemia E83.42 Hypokalemia E87.6 Bilateral leg numbness R20.0
[2024-10-03] MEDS: POTASSIUM CHLORIDE / WTR 10 MEQ/100 ML PLCT IV SCH (03:04)
[2024-10-03] MEDS: MAGNESIUM SULFATE / D5W 1 GM/100 ML BAG IV SCH ×2 (03:05→05:44)
[2024-10-03] MEDS ORDERED: Ativan IV Alcohol Withdrawal--Active Protocol IV PRN (04:34)
[2024-10-03] MEDS ORDERED: ONDANSETRON INJ 2 MG/ML 2 ML VIAL IV PRN (04:34)
[2024-10-03] MEDS: POTASSIUM CHLORIDE CRTAB 20 MEQ TABCR PO STA ×2 (05:40→16:32)
[2024-10-03] MEDS: MAGNESIUM SULFATE / D5W 1 GM/100 ML BAG IV STA (05:43)
[2024-10-03] MEDS: LACTATED RINGER'S 1,000 ML IV SCH (05:47)
[2024-10-03 06:10] LABS: Hematocrit (blood only) 26.2 % (42.0-52.0); Hemoglobin 9.2 g/dl (14.0-18.0); Mean Corpuscular Hemoglobin 35.7 pg (25.0-34.0); Mean Corpuscular Volume 101.6 fL (80.0-100.0); Platelet Count 53 K/uL (130-400); RDW Standard Deviation 61.1 fL (36.4-46.3); Red Blood Count 2.58 M/uL (4.70-6.10); White Blood Count 4.65 K/ul (4.8-10.8)
[2024-10-03 06:28] LABS: Anion Gap 10.0 (3-11); Blood Urea Nitrogen 14.0 mg/dl (6-23); Calcium 7.3 mg/dl (8.6-10.3); Carbon Dioxide 27.0 mmol/L (21-32); Chloride 106.0 mmol/L (98-107); Creatinine Clr Calc Pharmacy 128.4 ml/min; Glucose 96.0 mg/dl (70-99(Fasting)); Magnesium 1.6 mg/dl (1.7-2.4); Potassium 2.9 mmol/L (3.5-5.1); Sodium 143.0 mmol/L (136-145)
[2024-10-03 06:39] LABS: INR 1.4 (0.9-1.1); Prothrombin Time 14.6 Seconds (9.0-12.0)
[2024-10-03] MEDS: FOLIC ACID 1 MG in SYRINGE 9.8 ML IV SCH (09:31)
[2024-10-03] MEDS: THIAMINE HCL 100 MG in SYRINGE 9 ML IV SCH (09:31)
--- NOTE | 2024-10-03 13:41 | Hospitalist Progress Note ---
Date of Service October 03, 2024 Assessment & Plan (1) At risk for alcohol withdrawal: (2) Alcoholic intoxication: (3) Hypomagnesemia: (4) Hypokalemia: (5) Bilateral leg numbness: Plan 44-year-old male with history of alcoholism and homelessness presenting with generalized weakness, worsening neuropathy symptoms, electrolyte abnormalities. Patient intoxicated with alcohol level of 374 at time of admission. No symptoms of withdrawal at this time. #Generalized weaknesslikely multifactorial. Poor p.o. intake, electrolyte abnormalities, dehydration and worsening neuropathy. Admitted to PCU continue IV fluidsLR at 80 mL/h x 2 L Continue electrolyte repletion as below #At risk for alcohol withdrawal Maintain seizure precautions Check U tox Continue thiamine 100 mg IV daily Continue folic acid 1 mg IV daily Ativan as needed #Hypomagnesemiamagnesium = 1 on admit 2 g of magnesium given in ED. Will give additional 4 g Repeat magnesium level this AM 1.6, stat repeat this afternoon #Hypokalemia Patient has received 20 mEq IV thus far Will order additional 40 mEq Repeat chemistry this AM still w/ K+ 2.9 - Stat repeat K+ level this afternoon, replete as needed #Abnormal LFTsabdomen/pelvis CT performed during last hospitalization on 09/12/2024 with cirrhosis and portal hypertension. Possible masses in the right hepatic lobe. repeat right upper quadrant ultrasound - read is pending at present Repeat LFTs in the morning Patient should have an abdominal/liver MRI and alpha-fetoprotein can be performed outpatient #Bilateral leg numbnesspatient had some workup for this issue during his last hospitalization including a CT of the brain, CT of the cervical spine and CT of the lumbar spine. Workup revealed an old fracture at L4. 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 Patient's B12 = 1378 on 09/13/2024 will add low dose gabapentin 100mg TID #Pancytopenia - Likely marrow suppression from chronic ETOH use Patient with unstable housing and social situation. May be beneficial to patient if we could schedule him for follow-up appointments prior to discharge to ensure that he continues care and also provide him with any discharge medications at time of discharge if possible. Admission and Anticipated Discharge Date Admission Date: October 03, 2024 Supervising Physician Co-Signing Physician Notes The patient was not seen by me. The chart was reviewed. Case discussed with TIM Andrews. Agree with assessment and plan Subjective Sandip is a 44 yo M with a history of continued alcohol abuse who has been hospitalized for generalized weakness, multiple electrolyte derangements, and acute intoxication. He also endorses significant burning pain and numbness in his feet. Feels that his breathing is "shallow" but denies shortness of breath. No cough, congestion, chest pain or palpitations. Review of Systems 2 Review of Systems: All systems reviewed and are unremarkable except as noted in HPI and below. Denies fever, chills, fatigue, headache, nasal congestion, sore throat, cough, chest pain, shortness of breath, palpitations, orthopnea, PND, abdominal pain, n/v/d, constipation, dysuria, hematuria, frequency, back pain, joint pain or swelling, easy bruising or bleeding, skin lesions or rashes. Physical Exam 2 Physical Exam: GENERAL: 44 yo middle aged WM who appears older than stated age, disheveled appearance. No distress. LUNGS: Clear to auscultation bilaterally. No W/R/R. CARDIOVASCULAR: Regular rate and rhythm. ABDOMEN: Soft, non-tender and non-distended. No palpable masses. BS normoactive x 4 quad. EXTREMITIES: No edema. Non-tender. Peripheral pulses +2/4. NEUROLOGIC: A&O x3. No focal neurological deficits. CN II-XII grossly intact. SKIN: Warm, dry, intact. No rashes or lesions. Results & Data Results & Data Vital Signs (Past 12 Hours) Vital Signs Temp Pulse Pulse Resp BP BP BP 10/03/24 11:37 36.6 C 94 H 18 103/63 10/03/24 09:00 10/03/24 07:53 36.7 C 95 H 16 97/56 L 10/03/24 05:54 94 H 10/03/24 04:30 36.5 C 94 H 20 103/57 L 10/03/24 04:01 72 18 105/74 10/03/24 03:32 36.8 C 82 17 100/58 L Pulse Ox O2 Del Method 10/03/24 11:37 94 Room Air 10/03/24 09:00 Room Air 10/03/24 07:53 95 Room Air 10/03/24 05:54 10/03/24 04:30 97 Room Air 10/03/24 04:01 98 Room Air 10/03/24 03:32 97 Room Air Laboratory Results 10/03/24 05:44 10/03/24 05:44 PG Care Time/CCT Total # of Minutes Spent Total Time Spent with Patient: Total time spent is greater than 50% in coordination of care (as documented) at patient's floor/unit and/or counseling patient: 51 minutes Coding Level of Care Code 50510 SUB INP/OBS CARE 3/50MIN Diagnoses At risk for alcohol withdrawal Z91.89 Alcoholic intoxication F10.929 Hypomagnesemia E83.42 Hypokalemia E87.6 Bilateral leg numbness R20.0
[2024-10-03] MEDS: GABAPENTIN 100 MG CAP PO SCH (14:30)
[2024-10-03 15:09] LABS: Magnesium 1.9 mg/dl (1.7-2.4); Potassium 3.4 mmol/L (3.5-5.1)
[2024-10-03 16:03] LABS: Amphetamines+Metham, Urine Neg (Neg); MDMA (Ecstacy), Urine Neg (Neg); Marijuana, Urine Pos (Neg)
--- NOTE | 2024-10-03 18:36 | Electrocardiogram Report ---
Test Reason : Blood Pressure : */* mmHG Vent. Rate : 73 BPM Atrial Rate : 73 BPM P-R Int : 150 ms QRS Dur : 84 ms QT Int : 446 ms P-R-T Axes : 73 46 51 degrees QTcB Int : 491 ms Normal sinus rhythm with sinus arrhythmia Prolonged QT Abnormal ECG When compared with ECG of 02-Aug-2014 20:30, Non-specific change in ST segment in Inferior leads Nonspecific T wave abnormality now evident in Anterior leads Confirmed by Desmond Thurman ([id number]) on 10/03/2024 6:36:33 PM Referred By: REFERRED SELF Confirmed By: Desmond Thurman
[2024-10-04 00:17] LABS: Hematocrit (blood only) 28.5 % (42.0-52.0); Hemoglobin 10.2 g/dl (14.0-18.0); Immature Granulocytes # (auto) 0.03 K/uL (0.01-0.20); Immature Granulocytes % (auto) 0.5 %; Mean Corpuscular Hemoglobin 36.0 pg (25.0-34.0); Mean Corpuscular Volume 100.7 fL (80.0-100.0); Platelet Count 59 K/uL (130-400); RDW Standard Deviation 61.8 fL (36.4-46.3); Red Blood Count 2.83 M/uL (4.70-6.10); White Blood Count 6.14 K/ul (4.8-10.8)
[2024-10-04] MEDS: cefTRIAXone SODIUM 1,000 MG/50 ML BAG IV SCH (00:27)
[2024-10-04 00:33] LABS: Appearance Urine Clear (Clear); Bacteria Urine Automated None Seen (None Seen); Cast Urine Automated 0-2 /lpf (0-2); Epithelial Cell Urine Auto 0-2 /hpf (0-2); Glucose Urine UA Negative (Negative); RBC Urine Automated >20 /hpf (0-2); WBC Urine Automated 0-5 /hpf (0-5)
[2024-10-04 00:45] LABS: INR 1.3 (0.9-1.1); Partial Thromboplastin Time 32 Seconds (21-31); Prothrombin Time 14.1 Seconds (9.0-12.0)
[2024-10-04 06:09] LABS: Hematocrit (blood only) 25.9 % (42.0-52.0); Hemoglobin 9.5 g/dl (14.0-18.0); Mean Corpuscular Hemoglobin 36.4 pg (25.0-34.0); Mean Corpuscular Volume 99.2 fL (80.0-100.0); Platelet Count 49 K/uL (130-400); RDW Standard Deviation 59.6 fL (36.4-46.3); Red Blood Count 2.61 M/uL (4.70-6.10); White Blood Count 4.81 K/ul (4.8-10.8)
[2024-10-04 06:31] LABS: Alanine Aminotransferase 26.0 U/L (7-52); Alkaline Phosphatase 120.0 U/L (34-104); Anion Gap 8.0 (3-11); Bilirubin,Total 4.9 mg/dl (0.2-1.0); Blood Urea Nitrogen 11.0 mg/dl (6-23); Calcium 7.5 mg/dl (8.6-10.3); Carbon Dioxide 28.0 mmol/L (21-32); Chloride 101.0 mmol/L (98-107); Creatinine Clr Calc Pharmacy 173.6 ml/min; Glucose 88.0 mg/dl (70-99(Fasting)); Magnesium 1.2 mg/dl (1.7-2.4); Potassium 3.8 mmol/L (3.5-5.1); Sodium 137.0 mmol/L (136-145); Total Protein 5.7 gm/dl (6.0-8.3)
[2024-10-04 06:49] LABS: INR 1.4 (0.9-1.1); Prothrombin Time 14.8 Seconds (9.0-12.0)
[2024-10-04] MEDS: MAGNESIUM SULFATE / D5W 1 GM/100 ML BAG IV SCH (09:09)
[2024-10-04] MEDS: ACETAMINOPHEN 325 MG TAB PO PRN (10:58)
--- NOTE | 2024-10-04 14:03 | Discharge Summary ---
Date of Service October 04, 2024 Admission HPI Per Admitting Provider Rui Tsang is a 44yo male with history of EtOH use, asthma, housing insecurity presenting with generalized weakness and neuropathy. Patient was recently admitted to [facility] from 09/12 - 09/13/2024 with acute alcohol intoxication as well as bilateral lower extremity numbness/neuropathy. He was managed conservatively and discharged home on outpatient withdrawal management. Patient also found to have a possible mass in the right hepatic lobe. He has been referred to [facility] to establish with a primary care physician and has their number but has not yet made an appointment. Patient returns today with generalized weakness and worsening neuropathy symptoms. He reports that he has pain and burning in his feet and legs bilaterally to the knees. Patient was moving some items today with some friends. He reports that he sat down on the bench and fell asleep and when he woke up he was being loaded into an ambulance. No additional complaints at this time. He denies chest pain, palpitations, shortness of breath. He reports he has not been eating very well over the last several weeks. Continues to drink alcohol. Is unable to quantify the amount of alcohol that he drinks per day. States that he can go through a handle of liquor approximately every 3 days (appx 40 drinks/handle over 3 days = 13 drinks/day). No beer or wine intake. No additional substances used. Patient denies history of seizures or withdrawal. Last drink was earlier today. ER course: Normal saline x 2 L Thiamine 500 mg Potassium 20 mEq Magnesium x 2 g Specialty Data Hospitalist Discharge diagnosis: 1. Alcohol intoxication 2. Electrolyte derangements 3. Elevated LFTs 4. Pancytopenia Discharge assessment: Vital Signs Temp Pulse Pulse Pulse Resp BP BP 10/04/24 11:07 36.5 C 107 H 18 122/78 10/04/24 10:25 91 H 10/04/24 10:00 10/04/24 07:58 36.8 C 95 H 18 117/66 10/04/24 04:50 36.6 C 111 H 18 110/71 10/04/24 00:06 36.6 C 103 H 18 110/58 L 10/03/24 23:12 110 H 10/03/24 22:02 10/03/24 19:48 36.8 C 101 H 16 119/70 10/03/24 16:43 36.8 C 120 H 18 115/69 10/03/24 15:08 92 H Pulse Ox O2 Del Method 10/04/24 11:07 95 Room Air 10/04/24 10:25 10/04/24 10:00 Room Air 10/04/24 07:58 93 Room Air 10/04/24 04:50 95 Room Air 10/04/24 00:06 93 Room Air 10/03/24 23:12 10/03/24 22:02 Room Air 10/03/24 19:48 95 Room Air 10/03/24 16:43 95 Room Air 10/03/24 15:08 GENERAL: 44 yo middle aged WM who appears older than stated age, disheveled appearance. No distress. LUNGS: Clear to auscultation bilaterally. No W/R/R. CARDIOVASCULAR: Regular rate and rhythm. ABDOMEN: Soft, non-tender and non-distended. No palpable masses. BS normoactive x 4 quad. EXTREMITIES: No edema. Non-tender. Peripheral pulses +2/4. NEUROLOGIC: Tremulous. A&O x3. No focal neurological deficits. CN II-XII grossly intact. SKIN: Warm, dry, intact. No rashes or lesions. Discharge Data Consultations 10/03/24 01:24 ED Decision to Admit Stat Procedures Performed 10/04/24 05:07 10/04/24 05:12 Hospital Course (1) At risk for alcohol withdrawal: (2) Alcoholic intoxication: (3) Hypomagnesemia: (4) Hypokalemia: (5) Bilateral leg numbness: Plan 44-year-old male with history of alcoholism and homelessness presenting with generalized weakness, worsening neuropathy symptoms, electrolyte abnormalities. Patient intoxicated with alcohol level of 374 at time of admission. No symptoms of withdrawal at this time. #Generalized weaknesslikely multifactorial. Poor p.o. intake, electrolyte abnormalities, dehydration and worsening neuropathy. Admitted to PCU continue IV fluidsLR at 80 mL/h x 2 L Continue electrolyte repletion as below #At risk for alcohol withdrawal Maintain seizure precautions Check U tox Continue thiamine 100 mg IV daily Continue folic acid 1 mg IV daily Ativan as needed #Hypomagnesemiamagnesium = 1 on admit 2 g of magnesium given in ED. Will give additional 4 g Repeat magnesium level this AM 1.6, stat repeat on 10/03 was WNL at 1.9 - Repeat mag on 10/04 was low again at 1.2, ordered a total of 3 bags of Mag Sulfate 1g - #Hypokalemia Patient has received 20 mEq IV thus far Will order additional 40 mEq Repeat chemistry this AM still w/ K+ 2.9 - Stat repeat K+ level this afternoon, replete as needed #Abnormal LFTsabdomen/pelvis CT performed during last hospitalization on 09/12/2024 with cirrhosis and portal hypertension. Possible masses in the right hepatic lobe. repeated right upper quadrant ultrasound - read continues to be pending Repeat LFTs in the morning Patient should have an abdominal/liver MRI and alpha-fetoprotein can be performed outpatient #Bilateral leg numbnesspatient had some workup for this issue during his last hospitalization including a CT of the brain, CT of the cervical spine and CT of the lumbar spine. Workup revealed an old fracture at L4. 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 Patient's B12 = 1378 on 09/13/2024 will add low dose gabapentin 100mg TID #Pancytopenia - Likely marrow suppression from chronic ETOH use Patient with unstable housing and social situation. Discussed with case management who has arranged for a primary care provider follow up upon discharge; however, patient is notoriously noncompliant with all follow up and medications. Rx's have been sent to pharmacy for gabapentin in the past which he did not roll picker. Updated rx sent for gabapentin to tx neuropathy as well as for magnesium supplementation. Had a very lengthy conversation with Sandip regarding his condition and his prognosis if he continues to engage in heavy alcohol consumption. He seemed to voice understanding but is not interested in rehab. He had an episode of hematuria overnight on 10/03 to 10/04 for which a UA was repeated and was unremarkable for infection. His platelet count is 49,000 and likely contributing to his hematuria. He is medically/hemodynamically stable for discharge with outpatient follow up of which CM is setting up prior to discharge. Plan d/w Dr. Espinosa who is in agreement with aforementioned. Total time for discharge: 38 minutes Supervising Physician Co-Signing Physician Notes The patient was not seen by me. The chart was reviewed. Case discussed with TIM Andrews. Agree with assessment and plan Coding Level of Care Code 83453 INP/OBS DISCH >30 MIN Diagnoses At risk for alcohol withdrawal Z91.89 Alcoholic intoxication F10.929 Complication of substance-induced condition: with unspecified complication Hypomagnesemia E83.42 Hypokalemia E87.6 Bilateral leg numbness R20.0
[2024-10-05 05:57] LABS: Hematocrit (blood only) 25.4 % (42.0-52.0); Hemoglobin 8.9 g/dl (14.0-18.0); Immature Granulocytes # (auto) 0.07 K/uL (0.01-0.20); Immature Granulocytes % (auto) 1.2 %; Mean Corpuscular Hemoglobin 35.5 pg (25.0-34.0); Mean Corpuscular Volume 101.2 fL (80.0-100.0); Platelet Count 50 K/uL (130-400); RDW Standard Deviation 61.0 fL (36.4-46.3); Red Blood Count 2.51 M/uL (4.70-6.10); White Blood Count 5.77 K/ul (4.8-10.8)
[2024-10-05 06:12] LABS: Anion Gap 6.0 (3-11); Blood Urea Nitrogen 12.0 mg/dl (6-23); Calcium 7.5 mg/dl (8.6-10.3); Carbon Dioxide 28.0 mmol/L (21-32); Chloride 102.0 mmol/L (98-107); Creatinine Clr Calc Pharmacy 134.7 ml/min; Glucose 89.0 mg/dl (70-99(Fasting)); Magnesium 1.1 mg/dl (1.7-2.4); Potassium 3.9 mmol/L (3.5-5.1); Sodium 136.0 mmol/L (136-145)
[2024-10-05] MEDS: MAGNESIUM OXIDE 400 MG TAB PO SCH (08:05)
[2024-10-05] MEDS: MAGNESIUM SULFATE / D5W 1 GM/100 ML BAG IV SCH (08:05)
--- NOTE | 2024-10-05 10:01 | Urology Consultation ---
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 Discussed that with blood of this nature we normally complete a workup with a cystoscopy which should occur as an outpatient We reviewed his CT and we reviewed his urine testing as well as his history Overall, I strongly suspect that this is yet another sequela of his chronic issues, however, it does require full evaluation to ensure there are no other underlying issues This workup should occur as an outpatient and does not require continued confinement in the hospital His social setting may be challenging but we discussed different mechanisms for him to contact us as well as for us to attempt to reach him Our office number is [phone] Given his urgency and frequency, we could certainly consider oxybutynin to see if it would offer any benefitwould use oxybutynin ER 5 mg dailyshould be safe even with some liver dysfunction I suspect that his urgency and frequency as well as his bowel dysfunction are all further sequela of his chronic neuropathic issues and overall health History of Present Illness Attending Physician: Enzo Espinosa MD History of Present Illness 44-year-old male with a multitude of significant health issues both acute and chronic Consultation to urology secondary to gross hematuria On questioning the patient he reports that this has been occurring for months He has no pain or discomfort with it Initially was occurring after a normal void with clear urine, the terminal portion of his stream had small clots and amounts of blood Since that time he has noted blood at random times, generally not always while urinating, sometimes there is just blood at the tip of his penis or draining into his diaper At other times he does have blood that he reports feels the toilet and full stream He had 2 UAs conducted 24 hours ago, both showed clear urine with microscopic blood Today he showed me within his diaper that he has small amounts of blood located near the tip of the penis Full examination failed reveal any skin irritation or lesions or meatal irritation, there is no blood at the meatus currently He had a CT upon arrival He does not appear to have renal masses or hydronephrosis although the CT is not perfect for evaluation of these No obstructing stones or bladder abnormalities appreciated He additionally reports that he has severe urgency and has now had urge incontinence He additionally has bowel urgency and bowel incontinence He reports significant neuropathic type pain of his feet and limitations in mobility History of alcohol abuse with subsequent sequela of chronic overuse Allergies Allergy/AdvReac Type Severity Reaction Status Date / Time horse dander Allergy Mild HAPPENED Verified 10/03/24 01:45 A CHILD Home Medications Medication Instructions Recorded Confirmed Type folic acid 1 mg tablet 1 mg PO DAILY #30 tabs 09/13/24 10/03/24 Rx multivitamin with folic acid 400 1 tab PO QAM #30 tabs 09/13/24 10/03/24 Rx mcg tablet (Daily-Mateus (with folic acid)) thiamine HCl (vitamin B1) 250 mg 250 mg PO BID #60 tabs 09/13/24 10/03/24 Rx tablet gabapentin 100 mg capsule 100 mg PO TID #90 caps 10/04/24 Rx magnesium oxide 400 mg (241.3 mg 400 mg PO BID #60 tabs 10/04/24 Rx magnesium) tablet Patient History Medical History Tobacco use Bilateral leg numbness Overdose Head injury Alcoholism /alcohol abuse Social History Smoking Status: Current some day smoker Tobacco Type: Cigarettes Hx Alcohol Use: Yes Alcohol type: hard liquor Alcohol type Comment: started high school years Alcohol Intake Frequency: 4 or More x per/Week Hx Substance Use: Yes Last Used Substance: Unknown Preferred Language: Egyptian Communication Ability: Effective Medical Billing Coordinator Required: No Beliefs That Will Affect Care: None marital status: Single Current Living Situation: Homeless Feels Safe at Home: Yes Assistive Devices: None Review of Systems Review of Systems: All systems reviewed and are unremarkable except as noted in HPI and below. Denies fever, chills, fatigue, headache, nasal congestion, sore throat, cough, chest pain, shortness of breath, palpitations, orthopnea, PND, abdominal pain, n/v/d, constipation, dysuria, hematuria, frequency, back pain, joint pain or swelling, easy bruising or bleeding, skin lesions or rashes. Physical Exam Physical Exam: GENERAL: 44 yo middle aged WM who appears older than stated age, disheveled appearance. No distress. LUNGS: Clear to auscultation bilaterally. No W/R/R. CARDIOVASCULAR: Regular rate and rhythm. ABDOMEN: Soft, non-tender and non-distended. No palpable masses. BS normoactive x 4 quad. EXTREMITIES: No edema. Non-tender. Peripheral pulses +2/4. NEUROLOGIC: A&O x3. No focal neurological deficits. CN II-XII grossly intact. SKIN: Warm, dry, intact. No rashes or lesions. Genitourinary: Appropriately developed phallus, no blood at the meatus, no stenosis Small amount of blood within the the portion of the diaper adjacent to the tip of the penis, however no other abnormalities visible or palpable on external examination of the testes or penis Results & Data Vital Signs (Past 12 Hours) Vital Signs Temp Pulse Pulse Pulse Resp BP BP 10/05/24 09:00 92 H 10/05/24 09:00 10/05/24 08:07 36.8 C 94 H 17 106/66 10/05/24 03:27 37.2 C 98 H 20 118/76 10/05/24 00:00 110 H 10/04/24 23:56 37 C 102 H 13 105/60 10/04/24 23:05 37.0 C 102 H 18 111/74 Pulse Ox O2 Del Method 10/05/24 09:00 10/05/24 09:00 Room Air 10/05/24 08:07 96 Room Air 10/05/24 03:27 96 Room Air 10/05/24 00:00 10/04/24 23:56 96 Room Air 10/04/24 23:05 97 Room Air PG Care Time/CCT Total # of Minutes Spent Total Time Spent with Patient: Total time spent is greater than 50% in coordination of care (as documented) at patient's floor/unit and/or counseling patient: Coding Level of Care Code 10264 IN/OBS CONSULT LVL 4,60M Diagnoses Gross hematuria R31.0
[2024-10-05] MEDS: OXYBUTYNIN CHLORIDE XL 5 MG TABCR PO SCH (10:29)
--- NOTE | 2024-10-05 10:46 | Hospitalist Progress Note ---
Date of Service October 05, 2024 Assessment & Plan (1) Alcoholic intoxication: Plan: On admission. Now resolved. Supportive care. (2) Hypomagnesemia: Plan: Continue parenteral and oral replacement. Serial labs (3) Hypokalemia: Plan: Corrected with replacement therapy. Serial labs (4) Bilateral leg numbness: Plan: Gabapentin uptitrated today, October 06 for his peripheral neuropathy symptoms (5) Gross hematuria: Plan: Appreciate urology consultation and recommendations. Oxybutynin ER has been started. Outpatient cystoscopy will be pursued. (6) Thrombocytopenia: Plan: Due to bone marrow suppression from the alcohol. Serial labs Plan Hopeful discharge to home tomorrow, October 06 Admission and Anticipated Discharge Date Admission Date: October 03, 2024 Subjective Alert and oriented. No acute distress. Urology consultation noted. Outpatient cystoscopy has been recommended along with initiation of oxybutynin ER 5 mg daily. Gabapentin uptitrated to 300 mg 3 times a day to help with peripheral neuropathy. Hemoglobin is chronically low as is the platelet count probably from alcohol suppression of his bone marrow. Magnesium replacement continues. Potassium has been corrected to 3.9. Hopeful discharge tomorrow, October 06 Review of Systems 2 Review of Systems: Constitutionalno fever or chills ENTno blurred vision, no double vision, no epistaxis, no sore throat Respiratoryno cough, no wheezing, no shortness of breath Cardiacno palpitations, no chest pain, no syncope Sari nausea, vomiting, diarrhea, melena, hematochezia GUno urinary retention, no urinary incontinence, no dysuria. He does complain of intermittent gross hematuria Musculoskeletalno joint pain, no muscle tenderness Skinno bruising, no rashes, no pruritus Neurono isolated weakness, no paresthesia, no weakness Psychno depression, no anxiety Physical Exam 2 Physical Exam: General-alert and oriented x3, no fever, no chills HEENT-head atraumatic and normocephalic, pupils equal and reactive to light, extraocular muscles intact Neck-no lymphadenopathy or thyromegaly, trachea midline Chest-clear to auscultation. No rales, wheezing or rhonchi Cardiac-regular rate and rhythm, normal S1 and S2 Abdomen-normal bowel sounds, no hepatosplenomegaly Extremities-no cyanosis, clubbing, or edema Neuro-cranial nerves II through XII intact, motor and sensory function within normal limits, strength symmetrical, no focal deficits Psych-normal affect, normal mood Results & Data Results & Data Vital Signs (Past 12 Hours) Vital Signs Temp Pulse Pulse Pulse Resp BP BP 10/05/24 09:00 92 H 10/05/24 09:00 10/05/24 08:07 36.8 C 94 H 17 106/66 10/05/24 03:27 37.2 C 98 H 20 118/76 10/05/24 00:00 110 H 10/04/24 23:56 37 C 102 H 13 105/60 10/04/24 23:05 37.0 C 102 H 18 111/74 Pulse Ox O2 Del Method 10/05/24 09:00 10/05/24 09:00 Room Air 10/05/24 08:07 96 Room Air 10/05/24 03:27 96 Room Air 10/05/24 00:00 10/04/24 23:56 96 Room Air 10/04/24 23:05 97 Room Air Laboratory Results 10/05/24 05:20 10/05/24 05:20 PG Care Time/CCT Total # of Minutes Spent Total Time Spent with Patient: Total time spent is greater than 50% in coordination of care (as documented) at patient's floor/unit and/or counseling patient: Coding Level of Care Code 66349 SUB INP/OBS CARE 3/50MIN Diagnoses Alcoholic intoxication F10.929 Complication of substance-induced condition: with unspecified complication Hypomagnesemia E83.42 Hypokalemia E87.6 Bilateral leg numbness R20.0 Gross hematuria R31.0 Thrombocytopenia D69.6 (1) Alcoholic intoxication Complication of substance-induced condition: with unspecified complication Qualified Code(s): F10.929 - Alcohol use, unspecified with intoxication, unspecified
[2024-10-05] MEDS: GABAPENTIN 300 MG CAP PO SCH (14:04)
[2024-10-06 05:29] LABS: Hematocrit (blood only) 25.6 % (42.0-52.0); Hemoglobin 9.0 g/dl (14.0-18.0); Immature Granulocytes # (auto) 0.01 K/uL (0.01-0.20); Immature Granulocytes % (auto) 0.2 %; Mean Corpuscular Hemoglobin 35.9 pg (25.0-34.0); Mean Corpuscular Volume 102.0 fL (80.0-100.0); Platelet Count 58 K/uL (130-400); RDW Standard Deviation 61.9 fL (36.4-46.3); Red Blood Count 2.51 M/uL (4.70-6.10); White Blood Count 6.17 K/ul (4.8-10.8)
[2024-10-06 05:40] LABS: Anion Gap 5.0 (3-11); Blood Urea Nitrogen 17.0 mg/dl (6-23); Calcium 7.9 mg/dl (8.6-10.3); Carbon Dioxide 25.0 mmol/L (21-32); Chloride 104.0 mmol/L (98-107); Creatinine Clr Calc Pharmacy 152.3 ml/min; Glucose 112.0 mg/dl (70-99(Fasting)); Magnesium 1.3 mg/dl (1.7-2.4); Potassium 4.3 mmol/L (3.5-5.1); Sodium 134.0 mmol/L (136-145)
--- NOTE | 2024-10-06 07:23 | Ultrasound Report ---
EXAM: US liver CLINICAL HISTORY: Abnormal LFTs. TECHNIQUE: Limited ultrasound of the liver and gallbladder was performed in greyscale and Doppler. Multiple images were obtained in transverse and longitudinal planes. COMPARISON: No prior studies are available for comparison. FINDINGS: Liver: The liver shows moderate fatty infiltration. Heterogeneous hepatic parenchymal echotexture. A hypoechoic lesion is seen in the right lobe of the liver measuring 2.0 x 1.8 x 1.8 cm, with peripheral calcific foci. Hepatic vasculature appears normal. Gallbladder: The gallbladder wall appears thickened and edematous, measuring 9.2 mm. An echogenic focus along the gallbladder wall measures 1.4 mm, may represent a polyp. No gallstone is visualized in the provided images. Biliary Tree: Common bile duct diameter: 3.6 mm. The common bile duct is within normal limits in caliber and not dilated. No evidence of choledocholithiasis or biliary obstruction. Pancreas: The visualized pancreas appears unremarkable. Right Kidney: No gross abnormality is identified in the limited visualized right kidney. No evidence of hydronephrosis. IMPRESSION: 1. Moderate fatty infiltration of the liver. 2. Heterogeneous hepatic parenchymal echotexture, with the impression of a hypoechoic area in the right lobe of liver measuring 2.0 x 1.8 x 1.8 cm, with peripheral calcific foci. Further evaluation with CT triphasic is suggested. 3. The gallbladder wall is thickened and edematous, measuring 9.2 mm. No gallstone is visualized in the provided images. This may represent an acalculus cholecystitis. Clinical correlation and follow-up are suggested. 4. An echogenic focus along the gallbladder wall measures 1.4 mm, may represent a polyp. Electronically signed by Bakari Rodriguez 10-06-2024 07:23 AM
[2024-10-06 07:35] VITALS: RESP 20; TEMP 98.4; O2SAT 94
[2024-10-06] MEDS: MAGNESIUM SULFATE / D5W 1 GM/100 ML BAG IV SCH (09:06)
[2024-10-06] MEDS: MAGNESIUM OXIDE 400 MG TAB PO SCH (09:19)
--- NOTE | 2024-10-06 10:13 | Discharge Summary ---
Discharge Summary Date of Service October 06, 2024 Principal Dx & Hospital Course #1 = Principal Diagnosis (1) Alcoholic intoxication: On admission. Now resolved. Supportive care. (2) Hypomagnesemia: Continue parenteral today, October 06, before discharge. Continue magnesium oxide at discharge. (3) Hypokalemia: Corrected with replacement therapy. Serial labs (4) Bilateral leg numbness: Gabapentin uptitrated on October 06 for his peripheral neuropathy symptoms. Continue gabapentin 300 mg 3 times daily at discharge (5) Gross hematuria: Appreciate urology consultation and recommendations. Oxybutynin ER has been started. Outpatient cystoscopy will be pursued. Fortunately, his hemoglobin is stable (6) Thrombocytopenia: Due to bone marrow suppression from the alcohol. Serial labs Plan Home today, October 06 Admission HPI Per Admitting Provider Rui Tsang is a 44yo male with history of EtOH use, asthma, housing insecurity presenting with generalized weakness and neuropathy. Patient was recently admitted to [facility] from 09/12 - 09/13/2024 with acute alcohol intoxication as well as bilateral lower extremity numbness/neuropathy. He was managed conservatively and discharged home on outpatient withdrawal management. Patient also found to have a possible mass in the right hepatic lobe. He has been referred to [facility] to establish with a primary care physician and has their number but has not yet made an appointment. Patient returns today with generalized weakness and worsening neuropathy symptoms. He reports that he has pain and burning in his feet and legs bilaterally to the knees. Patient was moving some items today with some friends. He reports that he sat down on the bench and fell asleep and when he woke up he was being loaded into an ambulance. No additional complaints at this time. He denies chest pain, palpitations, shortness of breath. He reports he has not been eating very well over the last several weeks. Continues to drink alcohol. Is unable to quantify the amount of alcohol that he drinks per day. States that he can go through a handle of liquor approximately every 3 days (appx 40 drinks/handle over 3 days = 13 drinks/day). No beer or wine intake. No additional substances used. Patient denies history of seizures or withdrawal. Last drink was earlier today. ER course: Normal saline x 2 L Thiamine 500 mg Potassium 20 mEq Magnesium x 2 g Discharge Exam General-alert and oriented x3, no fever, no chills HEENT-head atraumatic and normocephalic, pupils equal and reactive to light, extraocular muscles intact Neck-no lymphadenopathy or thyromegaly, trachea midline Chest-clear to auscultation. No rales, wheezing or rhonchi Cardiac-regular rate and rhythm, normal S1 and S2 Abdomen-normal bowel sounds, no hepatosplenomegaly Extremities-no cyanosis, clubbing, or edema Neuro-cranial nerves II through XII intact, motor and sensory function within normal limits, strength symmetrical, no focal deficits Psych-normal affect, normal mood Discharge Plan Discharge Items Patient Disposition: Home - Self-Care Reason For Visit: GENERALIZED WEAKNESS Discharge Diagnosis: Alcohol intoxication, hypokalemia, hypomagnesemia, chronic hematuria Condition on Discharge: Good Activity: Resume your previous activity Non-emergency contact: Primary Care Provider Call non-emergency contact if: you have any medication questions and your symptoms worsen Follow-up/Referrals: Enriqueta Mendoza PA-C [Physician Wheel Shop Supervisor] - 10/09/24 2:30 pm PCP,NO [Primary Care Provider] - Diet: Regular Addtl Attending Provider Instructions: Gabapentin dosage has been increased and magnesium oxide prescribed twice daily to prevent low magnesium levels. Urology wants to see you in the office for follow-up. Their office number is [phone]. They have recommended oxybutynin taken once daily. Prescriptions have been sent to [facility] pharmacy on [facility]. Take Librium 10 mg twice daily and a tapering dose fashion as directed. Pending Studies at Discharge: No Stand-Alone Forms: My [facility], Smoking Cessation Medications and DC Order Prescriptions: New chlordiazepoxide HCl 10 mg Capsule See Rx Instructions .ROUTE .COMPLEX Qty: 6 0RF Rx Instructions: 10 mg orally twice a day for 2 days, then 10 mg once a day for 2 days, then stop gabapentin 300 mg Capsule 300 mg PO TID Qty: 60 0RF magnesium oxide 400 mg (241.3 mg magnesium) Tablet 800 mg PO BID Qty: 60 0RF oxybutynin chloride 5 mg Tablet Extended Release 24hr 5 mg PO QAM Qty: 20 0RF Continued multivitamin with folic acid [Daily-Mateus (with folic acid)] 400 mcg Tablet 1 tab PO QAM Qty: 30 0RF Rx Instructions: PER PT "NEVER PICKED UP FROM PHARMACY". thiamine HCl (vitamin B1) 250 mg tablet 250 mg PO BID Qty: 60 0RF Rx Instructions: PER PT "NEVER PICKED UP FROM PHARMACY". folic acid 1 mg tablet 1 mg PO DAILY Qty: 30 0RF Rx Instructions: PER PT "NEVER PICKED UP FROM PHARMACY". Discontinued gabapentin 600 mg Tablet 600 mg PO Q8H Qty: 2 0RF Rx Instructions: PER PT "NEVER PICKED UP FROM PHARMACY". Gabapentin 600mg PO q8 x 2 doses (09/13/2024, 8:00pm; 09/14/2024, 4:00am) gabapentin 600 mg Tablet 600 mg PO Q12H Qty: 2 0RF Rx Instructions: PER PT "NEVER PICKED UP FROM PHARMACY". Gabapentin 600mg PO q12 x 2 doses (09/14/2024, 4:00pm; 09/15/2024, 4:00am). gabapentin 600 mg Tablet 600 mg PO Q24H Qty: 1 0RF Rx Instructions: PER PT "NEVER PICKED UP FROM PHARMACY". Gabapentin 600mg PO x 1 dose (09/16/2024, 4:00am) Discharge Orders: Discharge Order (Routine); Ordered 10/06/24 Ordered By: Irma Hernandez Admission Data Admit Date/Time: 10/03/24 02:28 Attending Provider: Enzo Espinosa Admit Provider: Leora Pérez Primary Care Provider: PCP,NO Other Providers: Leora Pérez; Desmond Dennison Other Interventions: Discharge Summary Assessment (RN) Last Done: 10/04/24 14:40 Hospital Stay Data Consultations 10/03/24 01:24 ED Decision to Admit Stat 10/04/24 17:59 Consult Urology Routine Diagnostic Imagining Performed 10/03/24 05:17 US liver Routine Pending Results Patient Have Any Pending Studies at Discharge: No Discharge Instructions Given to Patient (Per Discharging Provider) Gabapentin dosage has been increased and magnesium oxide prescribed twice daily to prevent low magnesium levels. Urology wants to see you in the office for follow-up. Their office number is [phone]. They have recommended oxybutynin taken once daily. Prescriptions have been sent to [facility] pharmacy on [address] [facility]. Take Librium 10 mg twice daily and a tapering dose fashion as directed. Total Time Total Time Spent Total Time Spent (In Minutes): 45 minutes Coding Level of Care Code 90440 INP/OBS DISCH >30 MIN Diagnoses Alcoholic intoxication F10.929 Complication of substance-induced condition: with unspecified complication Hypomagnesemia E83.42 Hypokalemia E87.6 Bilateral leg numbness R20.0 Gross hematuria R31.0 Thrombocytopenia D69.6
[2024-10-06 10:23] VITALS: BP 113/73; PULSE 102
[2024-10-06 11:57] LABS: Marijuana Quant, GCMS Urine 191 ng/mL (<5)
== END 2024-10-06 14:44 | disposition home or self-care (01) | DRG 897 ==
LOC: ED 23:39 → SUATTDRO 10-03 02:28 → 4W 10-03 02:28

== ENCOUNTER 2024-10-09 14:44 | Observation (INO) ==
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
[2024-10-09 15:42] LABS: Hematocrit (blood only) 24.2 % (42.0-52.0); Hemoglobin 8.3 g/dl (14.0-18.0); Immature Granulocytes # (auto) 0.01 K/uL (0.01-0.20); Immature Granulocytes % (auto) 0.2 %; Mean Corpuscular Hemoglobin 35.3 pg (25.0-34.0); Mean Corpuscular Volume 103.0 fL (80.0-100.0); Platelet Count 83 K/uL (130-400); RDW Standard Deviation 66.2 fL (36.4-46.3); Red Blood Count 2.35 M/uL (4.70-6.10); White Blood Count 5.71 K/ul (4.8-10.8)
[2024-10-09] MEDS: FOLIC ACID 1 MG in SYRINGE 9.8 ML IV STA (15:53)
[2024-10-09] MEDS: THIAMINE HCL 100 MG in SYRINGE 9 ML IV STA (15:53)
[2024-10-09 16:01] LABS: Alanine Aminotransferase 26.0 U/L (7-52); Albumin Globulin Ratio 1.1 (0.9-2); Alkaline Phosphatase 141.0 U/L (34-104); Anion Gap 8.0 (3-11); Bilirubin,Total 3.0 mg/dl (0.2-1.0); Blood Urea Nitrogen 20.0 mg/dl (6-23); Calcium 8.4 mg/dl (8.6-10.3); Carbon Dioxide 24.0 mmol/L (21-32); Chloride 111.0 mmol/L (98-107); Creatinine Clr Calc Pharmacy 130.0 ml/min; Globulin 3.0 gm/dl (2.5-4.0); Glucose 105.0 mg/dl (70-99(Fasting)); Lipase 78.0 U/L (11-82); Magnesium 1.5 mg/dl (1.7-2.4); Potassium 3.9 mmol/L (3.5-5.1); Sodium 143.0 mmol/L (136-145); Total Protein 6.2 gm/dl (6.0-8.3)
[2024-10-09 16:14] LABS: INR 1.2 (0.9-1.1); Partial Thromboplastin Time 32 Seconds (21-31); Prothrombin Time 12.8 Seconds (9.0-12.0)
[2024-10-09] MEDS: SODIUM CHLORIDE 0.9% 1,000 ML IV ONE (16:38)
[2024-10-09] MEDS: MAGNESIUM SULFATE / D5W 1 GM/100 ML BAG IV STA (16:38)
--- NOTE | 2024-10-09 17:42 | XRay Report ---
EXAM: Portable AP chest radiograph TECHNIQUE: AP portable radiograph of the chest was obtained. INDICATION: Shortness of breath Comparison: None FINDINGS: LINES and TUBES: None CARDIOVASCULAR: Cardiac silhouette is normal in size. LUNGS/PLEURA: Mild pulmonary vascular congestion. No focal consolidation identified. No significant pleural fluid. No discernible pneumothorax. OSSEOUS/OTHER: No displaced acute osseous process identified. IMPRESSION: Mild pulmonary vascular congestion suggested. Electronically signed by Mathew Espino 10-09-2024 5:40 PM
[2024-10-09] MEDS: cefTRIAXone SODIUM 1,000 MG/50 ML BAG IV STA (17:48)
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
[2024-10-09 19:12] LABS: Chlamydia pneumoniae PCR Not Detected (NotDetected); Coronavirus 229E PCR Not Detected (NotDetected); Coronavirus CoV-2 (COVID19)PCR Not Detected (NotDetected); Coronavirus HKU1 PCR Not Detected (NotDetected); Coronavirus NL63 PCR Not Detected (NotDetected); Coronavirus OC43PCR Not Detected (NotDetected); Human Metapneumovirus PCR Not Detected (NotDetected); Parainfluenza Virus 1 PCR Not Detected (NotDetected); Parainfluenza Virus 2 PCR Not Detected (NotDetected); Parainfluenza Virus 3 PCR Not Detected (NotDetected); Parainfluenza Virus 4 PCR Not Detected (NotDetected); Respiratory Syncytial VirusPCR Not Detected (NotDetected); Rhinovirus/Enterovirus PCR Not Detected (NotDetected)
[2024-10-09 20:17] LABS: Hep B Surface Ag with confirm Negative (Negative)
[2024-10-09 20:22] LABS: Hep C Ab Rflx HepCQuant RNA Negative (Negative)
[2024-10-09] MEDS: MAGNESIUM SULFATE / D5W 1 GM/100 ML BAG IV SCH (20:25)
[2024-10-09] MEDS: THIAMINE HCL 50 MG TABLET PO SCH (20:25)
[2024-10-09] MEDS: MULTIVITAMIN TAB PO SCH (20:25)
--- NOTE | 2024-10-09 20:48 | Communication Note ---
Date of Service: October 09, 2024 Alerted by nursing staff that pt has friend in the room who also appears intoxicated. Pt's female friend was asked to leave by staff and was agreeable to leaving. Pt did not express thoughts of AMA per staff at this time. Gallon jug drink removed from the room. Will put in for morning alcohol level. Advised staff to let night team know if any signs of withdrawal occur, but likelihood is less in the coming hours if pt has continued to drink alcohol throughout evening so far. Resident Activity Tracking Resident Involvement: Resident Care Provided Care Provided: Adult Hospital Medicine
[2024-10-09 22:55] LABS: Appearance Urine Clear (Clear); Glucose Urine UA Negative (Negative)
[2024-10-10 06:13] LABS: Hematocrit (blood only) 23.7 % (42.0-52.0); Hemoglobin 8.2 g/dl (14.0-18.0); Immature Granulocytes # (auto) 0.01 K/uL (0.01-0.20); Immature Granulocytes % (auto) 0.3 %; Mean Corpuscular Hemoglobin 35.7 pg (25.0-34.0); Mean Corpuscular Volume 103.0 fL (80.0-100.0); Platelet Count 68 K/uL (130-400); RDW Standard Deviation 65.1 fL (36.4-46.3); Red Blood Count 2.30 M/uL (4.70-6.10); White Blood Count 3.52 K/ul (4.8-10.8)
[2024-10-10 06:28] LABS: Alanine Aminotransferase 21.0 U/L (7-52); Albumin Globulin Ratio 1.0 (0.9-2); Alkaline Phosphatase 119.0 U/L (34-104); Anion Gap 7.0 (3-11); Bilirubin,Total 2.8 mg/dl (0.2-1.0); Blood Urea Nitrogen 14.0 mg/dl (6-23); Calcium 7.7 mg/dl (8.6-10.3); Carbon Dioxide 24.0 mmol/L (21-32); Chloride 110.0 mmol/L (98-107); Creatinine Clr Calc Pharmacy 179.7 ml/min; Globulin 2.8 gm/dl (2.5-4.0); Glucose 89.0 mg/dl (70-99(Fasting)); Magnesium 1.6 mg/dl (1.7-2.4); Potassium 3.5 mmol/L (3.5-5.1); Sodium 141.0 mmol/L (136-145); Total Protein 5.5 gm/dl (6.0-8.3)
[2024-10-10] MEDS ORDERED: ALBUTEROL HFA 8 GM INHALER INH PRN (08:42)
[2024-10-10] MEDS ORDERED: MULTIVITAMIN TAB PO SCH (09:00)
[2024-10-10] MEDS: cefTRIAXone SODIUM 2,000 MG/50 ML BAG IV SCH (10:11)
[2024-10-10] MEDS ORDERED: MoRPHine SULFATE 4 MG/ML 1 ML CARP\\VIAL IV PRN (10:33)
[2024-10-10] MEDS: MoRPHine SULFATE 4 MG/ML 1 ML CARP\\VIAL IV STA (11:24)
[2024-10-10] MEDS: GADOXETATE DISODIUM IV ONE (13:37)
--- NOTE | 2024-10-10 14:27 | Electrocardiogram Report ---
Test Reason : Blood Pressure : */* mmHG Vent. Rate : 99 BPM Atrial Rate : 99 BPM P-R Int : 146 ms QRS Dur : 82 ms QT Int : 366 ms P-R-T Axes : -29 -5 -27 degrees QTcB Int : 469 ms Normal sinus rhythm Normal ECG When compared with ECG of 03-Oct-2024 00:11, Nonspecific T wave abnormality now evident in Inferior leads Confirmed by Moses Schmitt ([id number]) on 10/10/2024 2:26:59 PM Referred By: REFERRED SELF Confirmed By: Moses Schmitt
[2024-10-10] MEDS: FOLIC ACID 1 MG TAB PO SCH (14:31)
--- NOTE | 2024-10-10 14:36 | Electrocardiogram Report ---
Test Reason : Blood Pressure : */* mmHG Vent. Rate : 88 BPM Atrial Rate : 88 BPM P-R Int : 150 ms QRS Dur : 84 ms QT Int : 402 ms P-R-T Axes : 72 44 44 degrees QTcB Int : 486 ms Normal sinus rhythm Prolonged QT Abnormal ECG When compared with ECG of 03-Oct-2024 00:11, No significant change was found Confirmed by Moses Schmitt ([id number]) on 10/10/2024 2:36:01 PM Referred By: REFERRED SELF Confirmed By: Moses Schmitt
--- NOTE | 2024-10-10 19:26 | Magnetic Resonance Report ---
EXAM: MR abdomen wo/w con CLINICAL HISTORY: evaluate for right liver lobe mass/abscess. TECHNIQUE: Multiplanar, multisequence MR imaging was performed through the abdomen with and without IV contrast (10 ml Eovist). COMPARISON: None. FINDINGS: Liver: The liver is average in size with wavy undulated outlines and heterogeneous parenchyma with evidence of diffuse fatty infiltration. Right hepatic lobe segment 5 well-defined focal lesion it measures about 17 x 21 mm along the maximum transverse diameters and it elicits low signal intensity in T1 and bright signal intensity in T2 as well as bright signal intensity and diffusion-weighted images and postcontrast study displays marginal nodular enhancement early in the arterial phase with central filling and of the contrast in the portal phase and progressive filling and in the delayed phase. Another 2 tiny focal lesions are seen within segment 7 of the right lobe, measuring 7 mm and 5 mm in maximum transverse diameter with an indeterminate pattern of enhancement the appearance of low T1 signal intensity i and bright signal in T2-weighted images image. Gallbladder and Biliary System: Gallbladder is n appears distended showing diffuse mural thickening with submucosal edema, and a tiny hypointense stone near its neck Pancreas: Normal size and contour. Homogeneous signal intensity on T1 and T2-weighted images. No masses or cystic lesions. Normal enhancement post-contrast. Spleen: Normal size and appearance. Homogeneous signal intensity. No focal lesions. Normal enhancement post-contrast. Adrenal Glands: Normal size and morphology bilaterally. No adrenal masses. Normal enhancement post-contrast. Kidneys and Ureters: Normal size, shape, and position of both kidneys. Homogeneous signal intensity on T1 and T2-weighted images. No renal stones, masses, or hydronephrosis. Ureters are unremarkable. Normal enhancement post-contrast. Bowel: Multiple tiny diverticular outpouchings are seen within the ascending and transverse colonic segments with clear adjacent fat planes. No evidence of obstruction, wall thickening, or abnormal dilatation. No abnormal enhancement post-contrast. Lymph Nodes: No pathologically enlarged lymph nodes in the abdomen. Peritoneum: Mild perihepatic ascites is seen. An incidental note is also made of minimal bilateral pleural effusions. Bones: No lytic or sclerotic lesions. IMPRESSION: 1. Diffuse parenchymal liver disease on top of fatty infiltration for direct clinical correlation. 2. Right hepatic lobe segment 5 focal lesion, likely suggestive of a hemangioma for follow-up. 3. Right hepatic lobe segment 7, 2 tiny focal lesions likely cysts/indeterminate. 4. Distended gallbladder with diffuse mural thickening likely inflammatory cholecystitis with suspected tiny stone within. 5. Mild perihepatic ascites and minimal bilateral pleural effusions. Electronically signed by Bakari Rodriguez 10-10-2024 7:23 PM
--- NOTE | 2024-10-10 19:41 | Hospitalist Progress Note ---
Date of Service October 10, 2024 Assessment & Plan (1) Acute calculous cholecystitis: Plan: Patient remains afebrile with no complaints of nausea, vomit, diarrhea, abdominal pain, or pelvic pain on 10/10/2024. cf., WBC 5.71, N58 L22 M15 E3 B1 (10/09/2024, 3:29pm). cf., WBC 3.52, N51 L29 M14 E3 B2 (10/10/2024, 5:56pm). s/p ceftriaxone 1g IV x 1 dose (10/09/2024, 5:48pm), ceftriaxone 2g IV daily (day #1/4 on 10/10/2024, 10:11am). Continue NPO except for meds, and check vitals, abdominal exam, WBC w/diff, lactic acid, procalcitonin, in the 10/10/2024 am. Await HIDA scan (10/10/2024, 7:51pm), General Surgery Service evaluation with Dr. Cher Hay (10/11/2024, 8:00am), and Gastroenterology Service evaluation with Dr. Rolanda Escalante (10/11/2024, 8:00am). (2) Monocytosis: Plan: cf., WBC 5.71, N58 L22 M15 E3 B1 (10/09/2024, 3:29pm). cf., WBC 3.52, N51 L29 M14 E3 B2 (10/10/2024, 5:56pm). Etiology of peripheral monocytosis is most likely due to acute calculous cholecystitis. s/p ceftriaxone 1g IV x 1 dose (10/09/2024, 5:48pm), ceftriaxone 2g IV daily (day #1/4 on 10/10/2024, 10:11am). Continue NPO except for meds, and check vitals, abdominal exam, WBC w/diff, lactic acid, procalcitonin, in the 10/10/2024 am. Await HIDA scan (10/10/2024, 7:51pm), General Surgery Service evaluation with Dr. hCer Hay (10/11/2024, 8:00am), and Gastroenterology Service evaluation with Dr. Rolanda Escalante (10/11/2024, 8:00am). (3) Hypomagnesemia: Plan: cf., Mg 1.5 mg/dL (10/09/2024, 3:29pm). cf., Mg 1.6 mg/dL (10/10/2024, 5:56am). Patient received magnesium sulfate 1g IV x 1 dose (10/09/2024, 4:38pm) and magnesium sulfate 1g IV q2h x 3 doses (10/09/2024, 8:25pm, 10:34pm; 10/10/2024, 12:28am) in [facility] ER bed #[id number]. Acute hypomagnesemia persists. Patient will receive magnesium sulfate 1g IV q2h x 4 doses (starting on 10/10/2024, 8:15pm). I will check repeat Mg level in the 10/11/2024 am. Of note, etiology of acute hypomagnesemia is most probably due to ETOH-mediated magne-uresis. (4) ETOH abuse: Plan: cf., Serum ETOH 393.3 mg/dL (10/09/2024, 3:29pm). cf., Serum ETOH 208.9 mg/dL (10/10/2024, 5:56am). Patient has no signs of acute ETOH intoxication and/or acute ETOH withdrawal on admission date 10/09/2024 or current date 10/10/2024. Hence, I have opted to hold OFF initiating CIWA scale scoring with ativan, librium, or gabapentin schedules on admission date 10/09/2024 or current date 10/10/2024. Instead, I opted to supplement patient with folic acid 1mg IV x 1 dose (10/09/2024, 3:53pm), thiamine 100mg IV x 1 dose (10/09/2024, 3:53pm), and MVI x 1 dose (10/09/2024, 7:00pm) in [facility] ER. Patient continues to receive folic acid 1mg PO daily, thiamine 100mg PO daily, and MVI PO daily in [facility] bed #E307-1. (5) Macrocytic anemia: Plan: cf., Hb 8.3, MCV 103.0, MCHC 34.3 (10/09/2024, 3:29pm). cf., Hb 8.2, MCV 103.0, MCHC 34.6 (10/10/2024, 5:56pm). cf., chronic macrocytic, normochromic anemia with baseline Hb range, 9.2 - 9.9 g/dL (09/12/2024 - 10/03/2024). Patient reports no mucosal bleeding. Patient remains hemodynamically stable. Etiology of chronic macrocytic, normochromic anemia is most probably due to chronic ETOH-mediated bone marrow suppression; at the same time, I have ordered fecal occult blood testing (10/09/2024, 6:30pm) to check for possible acute blood loss anemia due to acute GI bleed in this patient with a history of "abdominal varices, consistent with portal HTN" (as reported on 09/12/2024, 5:43pm CT abd/pelvis without IV contrast). I will check repeat Hb level in the 10/11/2024 am, and reserve packed RBC transfusion for Hb level less than 7 g/dL. (6) Thrombocytopenia: Plan: cf., WBC 5.71, N58 L22 M15 E3 B1, Hb 8.3, MCV 103.0, MCHC 34.3, platelet 83 (10/09/2024, 3:29pm). cf., WBC 3.52, N51 L29 M14 E3 B2, Hb 8.2, MCV 103.0, MCHC 34.6, platelet 68 (10/10/2024, 5:56pm). cf., chronic thrombocytopenia with baseline platelet count range, 41-71 (09/12/2024 - 10/03/2024). Patient reports no mucosal bleeding. Etiology of chronic thrombocytopenia is most probably due to chronic ETOH-mediated bone marrow suppression. I will check repeat platelet count in the 10/11/2024 am, and reserve platelet transfusion for platelet count < 10. (7) Homelessness: Plan: Await Case Management Service evaluation in the 10/11/2024 am to identify homeless detention to which patient may be discharged in the next 24-36 hours as patient is persona non grata as per patient's father, Mr. Sergei Tsang ( ). Admission and Anticipated Discharge Date Admission Date: October 09, 2024 Subjective "I feel ok today. No complaints. What did the MRI of my liver show?" Review of Systems Constitutional: Positive for painless hematuria that began 2-3 months ago AFTER patient finished urinating; now positive for painless hematuria for the past 5-6 days WHILE urinating. Positive for unintentional weight loss of 30 pounds in the past 3 months. Positive for early satiety and intermittent night sweats and chills. Negative for antecedent/coincident fevers, cough, wheeze, sore throat, hemoptysis, chest pains, palpitations, pleurisy, nausea, vomiting, diarrhea, abdominal pain, pelvic pain, hematemesis, hematochezia, melena, frequency, urgency, flank pain, headaches, dizziness, lightheadedness, visual changes, hearing changes, weakness, falls, syncope, trauma, travel history, sick contacts, or food/drug ingestions novel or new. All other review of systems are reported as negative by the patient on 10/10/2024. Physical Exam Constitutional: General: Comfortable, coherent, and cooperative. Not confused, obtunded, or lethargic. Patient speaks with regular tyra, and in complete, fluent, and articulate 7-9 word sentences without pause, interruption, cough, or wheeze with O2 sat 97% on room air (10/10/2024, 2:51pm). HEENT: Normocephalic, atraumatic. No nystagmus, gaze paresis, anisocoria, miosis, mydriasis, hyphema, scleral injection, conjunctivitis, or pterygium. No otorrhea or rhinorrhea. No pharyngeal erythema, edema, or discharge. Neck: Supple, no stridor, bruit, goiter, or hepato-jugular reflux. Jugular venous pressure is estimated to be 3 cm above the sternal angle of [place], which in turn, is 5 cm above the level of the right atrium; with jugular venous pressure estimated to be 8 cm, then, there is no jugular venous distention on 10/10/2024. Lymphatics: No cervical (anterior/posterior), supraclavicular, infraclavicular, axillary, epitrochlear, or inguinal adenopathy. Chest: Symmetric rise and fall with respirations. Non-tender to palpation. Lungs: Clear to auscultation and percussion. Heart: Regular rate and rhythm. S1 and S2 noted. No S3 or S4 summation gallop. No tripartite friction rub. Grade II/ early systolic murmur @ LLSB without radiation to the carotids, axilla, or back, and which remains invariant in regards to the respiratory cycle. Abdomen: Soft, non-tender, non-distended. No rebound, guarding, Tsang's sign, or organomegaly. Bowel sounds auscultated in all 4 quadrants. Extremities: No clubbing, cyanosis, or edema. Skin: Sallow complexion. Multiple left flank ecchymoses, non-t sonia. No decubitus ulcer or enanthem or exanthem. Neuro: Awake and oriented in regards to person, place, time, and situation. DTR+. 5/5 motor strength in all 4 extremities, both proximally and distally. No myoclonus or tics or tremors. Genito-urinary: No urethral discharge. No bonner catheter. Results & Data Results & Data Vital Signs (Past 12 Hours) Vital Signs Temp Pulse Resp BP Pulse Ox O2 Del Method 10/10/24 14:51 36.3 C L 72 18 104/70 97 Room Air Laboratory Results NR 1.2 (10/09/2024, 3:29pm). WBC 5.71, N58 L22 M15 E3 B1, Hb 8.3, MCV 103.0, MCHC 34.3, platelet 83 (10/09/2024, 3:29pm). WBC 3.52, N51 L29 M14 E3 B2, Hb 8.2, MCV 103.0, MCHC 34.6, platelet 68 (10/10/2024, 5:56pm). Na 143, K 3.9, BUN 20, creatinine 0.76, Ca 8.4, PO4 4.9, Mg 1.5 (10/09/2024, 3:29pm). Na 141, K 3.5, BUN 14, creatinine 0.55, Ca 7.7, Mg 1.6 (10/10/2024, 5:56am). AST 108, ALT 26, ALK PHOS 141, TBili 3.0 (10/09/2024, 3:29pm). AST 91, ALT 21, ALK PHOS 119, TBili 2.8 (10/10/2024, 5:56am). Lipase 78 U/L (10/09/2024, 3:29pm). Lactic acid 2.4 mmol/L (10/09/2024, 2:34am). Lactic acid 1.2 mmol/L (10/10/2024, 5:59am). Procalcitonin 0.67 ng/mL (10/09/2024, 3:29pm). Procalcitonin 0.39 ng/mL (10/10/2024, 5:56am). U/A (10/09/2024, 10:38pm): LE-, nitrite- MRSA nares PCR negative (10/09/2024, 6:07pm). Biofire PCR negative (10/09/2024, 6:07pm) Acute hepatitis A,B,C panel (10/09/2024, 6:29pm). Serum ETOH 393.3 mg/dL (10/09/2024, 3:29pm). Serum ETOH 208.9 mg/dL (10/10/2024, 5:56am). Diagnostic Findings Portable CXR (10/09/2024, 4:13pm): No infiltrate, effusion, cardiomegaly, pulmonary vascular congestion, or pneumothorax (by my review). MRI liver with/without IV contrast (10/10/2024, 4:54pm)(to evaluate historical finding of "hypoechoic lesion seen in the right lobe of the liver measuring 2.0 cm x 1.8 cm x 1.8 cm, with peripheral calcific foci" (as noted on 10/03/2024 liver U/S)): 1. Diffuse parenchymal liver disease on top of fatty infiltration for direct clinical correlation. 2. Right hepatic lobe segment 5 focal lesion, likely suggestive of a hemangioma for follow-up. 3. Right hepatic lobe segment 7, 2 tiny focal lesions likely cysts/indetermi donato. 4. Distended gallbladder with diffuse mural thickening likely inflammatory cholecystitis with suspected tiny stone within. 5. Mild perihepatic ascites and minimal bilateral pleural effusions. Historical testing in [facility] includes: U/A (10/03/2024, 11:59pm): clear orange, trace ketones, 3+ blood with >20 RBC, WBC 0-5, LE-, nitrite-, epithelial cells 0-2, bacteria 0 Liver U/S (10/03/2024, 5:17am): 1. Moderate fatty infiltration of the liver. 2. Heterogeneous hepatic parenchymal echotexture, with the impression of a hypoechoic area in the right lobe of liver measuring 2.0 x 1.8 x 1.8 cm, with peripheral calcific foci. 3. The gallbladder wall is thickened and edematous, measuring 9.2 mm. No gallstone is visualized in the provided images. May represent an acalculus cholecystitis. 4. Ehogenic focus along the gallbladder wall measures 1.4 mm, may represent a polyp. CT abd/pelvis without IV contrast (09/12/2024, 5:43pm): 1. Cirrhosis and portal hypertension 2. Possible masses in the right hepatic lobe. 3. Cholelithiasis without definite acute cholecystitis 4. Suspected mild small bowel wall thickening, admitted due to infectious enteritis or inflammatory bowel disease 5. Diverticulosis without definite diverticulitis. PG Care Time/CCT Total # of Minutes Spent Total Time Spent with Patient: Total time spent is greater than 50% in coordination of care (as documented) at patient's floor/unit and/or counseling patient: Coding Level of Care Code 91032 SUB INP/OBS CARE 2/35MIN Diagnoses Acute calculous cholecystitis K80.00 Monocytosis D72.821 Hypomagnesemia E83.42 ETOH abuse F10.10 Macrocytic anemia D53.9 Thrombocytopenia D69.6 Homelessness Z59.00
[2024-10-10 20:16] LABS: Lipase 35.0 U/L (11-82)
[2024-10-10] MEDS: ACETAMINOPHEN 325 MG TAB PO ONE (20:18)
[2024-10-10] MEDS: MAGNESIUM SULFATE / D5W 1 GM/100 ML BAG IV SCH (20:24)
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
[2024-10-11 06:39] LABS: Hematocrit (blood only) 25.8 % (42.0-52.0); Hemoglobin 8.9 g/dl (14.0-18.0); Immature Granulocytes # (auto) 0.01 K/uL (0.01-0.20); Immature Granulocytes % (auto) 0.2 %; Mean Corpuscular Hemoglobin 35.3 pg (25.0-34.0); Mean Corpuscular Volume 102.4 fL (80.0-100.0); Platelet Count 80 K/uL (130-400); RDW Standard Deviation 64.1 fL (36.4-46.3); Red Blood Count 2.52 M/uL (4.70-6.10); White Blood Count 4.18 K/ul (4.8-10.8)
[2024-10-11 07:00] LABS: Alanine Aminotransferase 23.0 U/L (7-52); Albumin Globulin Ratio 1.0 (0.9-2); Alkaline Phosphatase 117.0 U/L (34-104); Anion Gap 8.0 (3-11); Bilirubin,Total 2.7 mg/dl (0.2-1.0); Blood Urea Nitrogen 10.0 mg/dl (6-23); Calcium 8.1 mg/dl (8.6-10.3); Carbon Dioxide 26.0 mmol/L (21-32); Chloride 109.0 mmol/L (98-107); Creatinine Clr Calc Pharmacy 167.5 ml/min; Globulin 3.0 gm/dl (2.5-4.0); Glucose 98.0 mg/dl (70-99(Fasting)); Potassium 4.0 mmol/L (3.5-5.1); Sodium 143.0 mmol/L (136-145); Total Protein 6.0 gm/dl (6.0-8.3)
[2024-10-11 07:58] LABS: Magnesium 2.0 mg/dl (1.7-2.4)
[2024-10-11 09:39] VITALS: BP 108/76; PULSE 85; RESP 16; TEMP 97.3; O2SAT 93
[2024-10-11] MEDS: SINCALIDE IV ONE (09:51)
[2024-10-11] MEDS: SODIUM CHLORIDE 0.9% IV ONE (09:51)
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
--- NOTE | 2024-10-11 10:08 | Nuclear Medicine Report ---
NUCLEAR HEPATOBILIARY SCAN CLINICAL HISTORY: Acute cholecystitis. COMPARISON STUDY: Abdominal ultrasound dated 10/03/2024. TECHNIQUE: Dynamic images of the liver and anterior abdomen were obtained every 5 minutes for a total of 60 minutes following the IV administration of 5.2 mCi of technetium 99m Mebrofenin. An additional image was acquired at 75 minutes. FINDINGS: The hepatobiliary scan shows prompt and homogeneous hepatic uptake. There is visualized act ivity within the intra and extrahepatic biliary tree at 15 minutes. There is normal biliary to bowel transit, with small bowel visualized by 20 minutes. The gallbladder was not clearly seen at 60 minut es, but was seen on the 75 minute delayed image. IMPRESSION: There is no scintigraphic evidence of acute cholecystitis. There is delayed tracer uptake within the gallbladder, which was seen at 75 minutes. This could potentially be seen with chronic ch olecystitis. Clinical correlation will be required. ACT 112: Negative or not required by law. Electronically signed by: Rai Cottrell M.D. 10/11/2024 10:05 AM
--- NOTE | 2024-10-11 12:16 | Discharge Summary ---
Discharge Summary Date of Service October 11, 2024 Principal Dx & Hospital Course #1 = Principal Diagnosis (1) Acute calculous cholecystitis: Patient remains afebrile with no complaints of nausea, vomit, diarrhea, abdominal pain, or pelvic pain on 10/10/2024 - 10/11/2024. cf., WBC 5.71, N58 L22 M15 E3 B1 (10/09/2024, 3:29pm). cf., WBC 3.52, N51 L29 M14 E3 B2 (10/10/2024, 5:56pm). cf., WBC 4.18, N49 L33 M12 E4 B2 (10/11/2024, 6:18am). s/p ceftriaxone 1g IV x 1 dose (10/09/2024, 5:48pm), ceftriaxone 2g IV daily (day #1 on 10/10/2024, 10:11am; day #2 on 10/11/2024, 9:55am). Patient subsequently decided to drink 1 quart of vodka on 10/11/2024 pm - 10/12/2024 am in his bed in [facility] Med-Surg bed #E307-1; unclear how patient managed to obtain [facility]. Patient subsequently urinated in his bed in [facility] Surg bed #E307-1 and his whole room [facility]. Patient subsequently underwent HIDA scan (10/11/2024, 7:51am) and urinated copiously and continuously on the stretcher while undergoing HIDA scan (10/11/2024, 7:51am) and the whole nuclear medicine room [facility], too. Of note, HIDA scan (10/11/2024, 7:51am) revealed "no scintigraphic evidence of acute cholecystitis. There is delayed tracer uptake within the gallbladder, which was seen at 75 minutes. This could potentially be seen with chronic cholecystitis." Patient subsequently had a serum ETOH level of 412.1 mg/dL (10/11/2024, 9:43am) and remained wide awake and alert. Patient was not confused, lethargic, or obtunded. Patient spoke in complete, fluent, and articulate 7-9 word sentences without pause, interruption, cough, or wheeze. Patient was afebrile @ 36.3 degrees Celsius, HR 85, RR 16, O2 sat 93% on room air, and BP 108/76 (10/11/2024, 9:37am) in [facility] Med-Surg bed #E307-1. Patient reported: "I can't stay anymore, Doc. I gotta go and drink some more alcohol. I know what I am doing and I am doing what I want to do. You can't make me stay in the hospital." Patient subsequently reported no complaints of fevers, chills, diaphoresis, nausea, vomiting, diarrhea, abdominal pain, pelvic pain, flank pain, hematemesis, hematochezia, melena, agitation, anxiety, panic, etc., on 10/11/2024. Patient subsequently was discharged to the hospital lobby on 10/11/2024 as patient is persona non-grata as per patient's father, Mr. Sergei Tsang ( ), as patient reports: "I got into an argument with my father, so he kicked me out onto the streets like some mongrel dog." (2) Monocytosis: cf., WBC 5.71, N58 L22 M15 E3 B1 (10/09/2024, 3:29pm). cf., WBC 3.52, N51 L29 M14 E3 B2 (10/10/2024, 5:56pm). cf., WBC 4.18, N49 L33 M12 E4 B2 (10/11/2024, 6:18am). Etiology of peripheral monocytosis is most likely due to chronic cholecystitis. s/p ceftriaxone 1g IV x 1 dose (10/09/2024, 5:48pm), ceftriaxone 2g IV daily (day #1 on 10/10/2024, 10:11am; day #2 on 10/11/2024, 9:55am). Patient subsequently decided to drink 1 quart of vodka on 10/11/2024 pm - 10/12/2024 am in his bed in [facility] Med-Surg bed #E307-1; unclear how patient managed to obtain vodka while hospitalized at [facility] Med-Surg bed #E307-1. Patient subsequently urinated in his bed in [facility] Surg bed #E307-1 and his whole room stank. Patient subsequently underwent HIDA scan (10/11/2024, 7:51am) and urinated copiously and continuously on the stretcher while undergoing HIDA scan (10/11/2024, 7:51am) and the whole nuclear medicine room stank, too. Of note, HIDA scan (10/11/2024, 7:51am) revealed "no scintigraphic evidence of acute cholecystitis. There is delayed tracer uptake within the gallbladder, which was seen at 75 minutes. This could potentially be seen with chronic cholecystitis." Patient subsequently had a serum ETOH level of 412.1 mg/dL (10/11/2024, 9:43am) and remained wide awake and alert. Patient was not confused, lethargic, or obtunded. Patient spoke in complete, fluent, and articulate 7-9 word sentences without pause, interruption, cough, or wheeze. Patient was afebrile @ 36.3 degrees Celsius, HR 85, RR 16, O2 sat 93% on room air, and BP 108/76 (10/11/2024, 9:37am) [facility] Patient reported: "I can't stay anymore, Doc. I gotta go and drink some more alcohol. I know what I am doing and I am doing what I want to do. You can't make me stay in the hospital." Patient subsequently reported no complaints of fevers, chills, diaphoresis, nausea, vomiting, diarrhea, abdominal pain, pelvic pain, flank pain, hematemes is, hematochezia, melena, anxiety, agitation, panic, etc., on 10/11/2024. Patient subsequently was discharged to the hospital lobby on 10/11/2024 as patient is persona non-grata as per patient's father, Mr. Sergei Tsang ( ), as patient reports: "I got into an argument with my father, so he kicked me out onto the streets like some mongrel dog." (3) Hypomagnesemia: cf., Mg 1.5 mg/dL (10/09/2024, 3:29pm). cf., Mg 1.6 mg/dL (10/10/2024, 5:56am). cf., Mg 2.0 mg/dL (10/11/2024, 6:18am). Patient received magnesium sulfate 1g IV x 1 dose (10/09/2024, 4:38pm) and magnesium sulfate 1g IV q2h x 3 doses (10/09/2024, 8:25pm, 10:34pm; 10/10/2024, 12:28am) in [facility] ER bed #B11B. Acute hypomagnesemia persisted. Patient subsequently received magnesium sulfate 1g IV q2h x 4 doses (10/10/2024, 8:24pm, 10:30pm; 10/11/2024, 12:27am, 2:23am) in [facility] Med-Surg bed #E307-1. Acute hypomagnesemia RESOLVED. Of note, etiology of acute hypomagnesemia was most probably due to ETOH-mediated magne-uresis. (4) ETOH abuse: cf., Serum ETOH 393.3 mg/dL (10/09/2024, 3:29pm). cf., Serum ETOH 208.9 mg/dL (10/10/2024, 5:56am). cf., Serum ETOH 412.1 mg/dL (10/11/2024, 9:43am). Patient had/has no signs of acute ETOH intoxication and/or acute ETOH withdrawal on admission date 10/09/2024 through discharge date 10/11/2024. Hence, I opted to hold OFF initiating CIWA scale scoring with ativan, librium, or gabapentin schedules on admission date 10/09/2024 through discharge date 10/11/2024. Instead, I opted to supplement patient with folic acid 1mg IV x 1 dose (10/09/2024, 3:53pm), thiamine 100mg IV x 1 dose (10/09/2024, 3:53pm), and MVI x 1 dose (10/09/2024, 7:00pm) in [facility] ER. Patient continued to receive folic acid 1mg PO daily, thiamine 100mg PO daily, and MVI PO daily in [facility] Med-Surg bed #E307-1. Patient reports that he will not continue with folic acid 1mg PO daily, thiamine 100mg PO daily, and MVI PO daily, stating, "I can take care of myself, Doc." (5) Macrocytic anemia: cf., Hb 8.3 g/dL, MCV 103.0, MCHC 34.3 (10/09/2024, 3:29pm). cf., Hb 8.2 g/dL, MCV 103.0, MCHC 34.6 (10/10/2024, 5:56pm). cf., Hb 8.9 g/dL, MCV 102.4, MCHC 34.5 (10/11/2024, 6:18am). cf., chronic macrocytic, normochromic anemia with baseline Hb range, 9.2 - 9.9 g/dL (09/12/2024 - 10/03/2024). Patient reports no mucosal bleeding. Patient remains hemodynamically stable. Etiology of chronic macrocytic, normochromic anemia is most probably due to chronic ETOH-mediated bone marrow suppression; at the same time, I ordered fecal occult blood testing (10/09/2024, 6:30pm) to check for possible acute blood loss anemia due to acute GI bleed in this patient with a history of "abdominal varices, consistent with portal HTN" (as reported on 09/12/2024, 5:43pm CT abd/pelvis without IV contrast). Patient subsequently refused to provide any bowel sample(s) for fecal occult blood testing, and instead, flushed his bowel movements down the toilet. Of note, patient did not require or receive any packed RBC transfusions while in [facility] from admission date 10/09/2024 through discharge date 10/11/2024. (6) Thrombocytopenia: cf., platelet 83 (10/09/2024, 3:29pm). cf., platelet 68 (10/10/2024, 5:56pm). cf., platelet 80 (10/11/2024, 6:18am). cf., chronic thrombocytopenia with baseline platelet count range, 41-71 (09/12/2024 - 10/03/2024). Patient reports no mucosal bleeding. Etiology of chronic thrombocytopenia is most probably due to chronic ETOH-mediated bone marrow suppression. Of note, patient did not require or receive any packed platelet transfusions while in [facility] from admission date 10/09/2024 through discharge date 10/11/2024. (7) Homelessness: Patient underwent Case Management Service evaluation in the 10/11/2024 am to identify homeless halfway to which patient may be discharged in the next 24-36 hours as patient is sheba finn as per patient's father, Mr. Sergei Tsang ( ). Patient subsequently decided to be discharged to [facility] lobby on 10/11/2024 am, stating, "I will find my own place, thank you." Admission HPI Per Admitting Provider 44 years old male with PMH of FULL CODE @ homeless, ongoing tobacco abuse with no subsequent development of COPD, not on home O2 or home steroids, ongoing ETOH abuse with subsequent diagnosis of cirrhosis and portal HTN, chronic macrocytic, normochromic anemia with baseline Hb range, 9.2 - 9.9 g/dL (09/12/2024 - 10/03/2024), chronic thrombocytopenia with baseline platelet count range, 41-71 (09/12/2024 - 10/03/2024), chronic peripheral non-diabetic, 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 Patient also reports that he bruises easily and points to ecchymoses on the left flank. Patient denies antecedent/coincident fevers, cough, wheeze, sore throat, hemoptysis, chest pains, palpitations, pleurisy, nausea, vomiting, diarrhea, abdominal pain, pelvic pain, hematemesis, hematochezia, melena, frequency, urgency, flank pain, headaches, dizziness, lightheadedness, visual changes, hearing changes, weakness, falls, syncope, trauma, travel history, sick contacts, or food/drug ingestions novel or new. In [facility] ER bed #B11B, patient was afebrile @ 36.7 degrees Celsius, HR 110, RR 18, O2 sat 94% on room air, and BP 99/64 (10/09/2024, 2:48pm). Exam was noted for sallow complexion with slightly icteric sclera. No epistaxis or gingival hemorrhage noted. Multiple left flank ecchymoses, non-tender, noted. Abdomen was soft, non-distended, non-tender. Bowel sounds were readily auscultated in all 4 quadrants. No rebound, guarding, Tsang's sign, or organomegaly was present. No fluid wave was present on percussion/auscultation of abdomen. Labs in [facility] ER bed #B11B included: INR 1.2 (10/09/2024, 3:29pm). WBC 5.71, N58 L22 M15 E3 B1, Hb 8.3, MCV 103.0, MCHC 34.3, platelet 83 (10/09/2024, 3:29pm). Na 143, K 3.9, BUN 20, creatinine 0.76, Ca 8.4, PO4 4.9, Mg 1.5 (10/09/2024, 3:29pm). AST 108, ALT 26, ALK PHOS 141, TBili 3.0 (10/09/2024, 3:29pm). Lipase 78 U/L (10/09/2024, 3:29pm). Lactic acid (10/09/2024, 3:29pm). Procalcitonin 0.67 ng/mL (10/09/2024, 3:29pm). U/A (10/09/2024, 3:11pm)(uncollected). U/A (10/09/2024, 6:03pm)(uncollected). MRSA nares PCR (10/09/2024, 5:55pm). Biofire PCR (10/09/2024, 6:04pm)(to evaluate recent development of peripheral monocytosis with M% 13.7% (10/03/2024, 12:12am) to 11.3% (10/06/2024, 5:06am), recognizing that the top 3 causes of peripheral monocytosis in any individual are: a. acute viral syndrome (cf., in the summer months, echovirus/enterovirus is most common, followed by adenovirus). b. acute leukemia, lymphoma, or other solid organ malignancy. c. acute bacterial infection (cf., brucellosis, tularemia, leptospirosis, listeriosis, TB). Acute hepatitis A,B,C panel (10/09/2024, 6:29pm). Serum ETOH 393.3 mg/dL (10/09/2024, 3:29pm). Additional testing in [facility] ER bed #B11B included: Portable CXR (10/09/2024, 4:13pm): No infiltrate, effusion, cardiomegaly, pulmonary vascular congestion, or pneumothorax (by my review). MRI liver with/without IV contrast (10/09/2024, 4:54pm): (to evaluate historical finding of "hypoechoic lesion seen in the right lobe of the liver measuring 2.0 cm x 1.8 cm x 1.8 cm, with peripheral calcific foci" (as noted on 10/03/2024 liver U/S). Historical testing in [facility] includes: U/A (10/03/2024, 11:59pm): clear orange, trace ketones, 3+ blood with >20 RBC, WBC 0-5, LE-, nitrite-, epithelial cells 0-2, bacteria 0 Liver U/S (10/03/2024, 5:17am): 1. Moderate fatty infiltration of the liver. 2. Heterogeneous hepatic parenchymal echotexture, with the impression of a hypoechoic area in the right lobe of liver measuring 2.0 x 1.8 x 1.8 cm, with peripheral calcific foci. 3. The gallbladder wall is thickened and edematous, measuring 9.2 mm. No gallstone is visualized in the provided images. May represent an acalculus cholecystitis. 4. Ehogenic focus along the gallbladder wall measures 1.4 mm, may represent a polyp. CT abd/pelvis without IV contrast (09/12/2024, 5:43pm): 1. Cirrhosis and portal hypertension 2. Possible masses in the right hepatic lobe. 3. Cholelithiasis without definite acute cholecystitis 4. Suspected mild small bowel wall thickening, admitted due to infectious enteritis or inflammatory bowel disease 5. Diverticulosis without definite diverticulitis. Patient was subsequently placed in OBSERVATION on the hospitalist service @ [facility] on 10/09/2024 with the following diagnoses: 1. Acute peripheral monocytosis with M% 15% (10/09/2024, 3:29pm), of unclear etiology: R/O acute viral infection, R/O hepatocellular carcinoma, R/O liver abscess. 2. Acute hypomagnesemia with admission Mg 1.5 mg/dL (10/09/2024, 3:29pm). 3. Chronic ETOH abuse with serum ETOH 393.3 mg/dL (10/09/2024, 3:29pm) and no signs of acute ETOH intoxication and/or acute ETOH withdrawal. 4. Chronic macrocytic, normochromic anemia with admission Hb 8.3, MCV 103.0, MCHC 34.3 (10/09/2024, 3:29pm). cf,. baseline Hb range, 9.2 - 9.9 g/dL (09/12/2024 - 10/03/2024). cf., elevated procalcitonin 0.67 ng/mL (10/09/2024, 3:29pm): R/O Spontaneous Bacterial Peritonitis. 5. Chronic thrombocytopenia with admission platelet 83 (10/09/2024, 3:29pm). cf., baseline platelet count range, 41-71 (09/12/2024 - 10/03/2024). 6. Homelessness. To address #1, patient awaits Biofire PCR (10/09/2024, 6:04pm)(to evaluate recent development of peripheral monocytosis with M% 13.7% (10/03/2024, 12:12am) to 11.3% (10/06/2024, 5:06am), recognizing that the top 3 causes of peripheral monocytosis in any individual are: a. acute viral syndrome (cf., in the summer months, echovirus/enterovirus is most common, followed by adenovirus). b. acute leukemia, lymphoma, or other solid organ malignancy. c. acute bacterial infection (cf., brucellosis, tularemia, leptospirosis, listeriosis, TB). Of note, while infection with hepatitis A, B, or C can cause jaundice, the amplitude of transaminase (e.g., AST, ALT) in these particular viral infections, especially in hepatitis A and hepatitis B infections, is much higher (cf., AST and ALT levels are in the 10,000 U/L range in acute hepatitis A infection; AST and ALT levels are in the 1,000+ range in acute hepatitis B infection; AST and ALT levels are in the 400+ range in acute hepatitis C infection) than what is seen in this patient: cf, AST 108 U/L, ALT 26 U/L. Moreover, one of the defining characteristics of acute viral hepatitis is that the ALT level is almost always greater than the AST level, and that is not the case in this patient. For these 2 reasons, then, I surmise that this patient does not have acute viral hepatitis caused by hepatitis A, B, or C. Of further note, I am more concerned that this patient has a solid organ malignancy such as hepatocellular carcinoma, given his past medical history of " hypoechoic area in the right lobe of liver measuring 2.0 x 1.8 x 1.8 cm" (as noted on 10/03/2024, 5:17am liver U/S). Of final note, I am even more concerned that this patient has an acute bacterial infection such as liver abscess, given his past medical history of "hypoechoic area in the right lobe of liver measuring 2.0 x 1.8 x 1.8 cm" (as noted on 10/03/2024, 5:17am liver U/S). Of the other bacterial infections (e.g, brucellosis, tularemia, leptospirosis, listeriosis, or TB) listed above, patient has no stigmata on physical exam or physical exposures/contacts with infected animals or persons to suggest that this patient suffers from such bacterial infections. Of final note, while this patient is slightly more anemic than his baseline Hb level would suggest, and while his procalcitonin level is elevated at 0.67 ng/mL (10/09/2024, 3:29pm), most patients with spontaneous bacterial peritonitis have ascites on exam (which I cannot appreciate at all), and the procalcitonin level is almost always greater than 2 ng/mL. Hence, I have opted to forego any U/S detection for ascites/paracentesis, and instead, I have started patient empirically on ceftriaxone 1g IV x 1 dose (10/09/2024, 5:48pm) in [facility] ER bed #B11B, followed by ceftriaxone 2g IV daily x 4 doses (starting on 10/10/2024, 9:00am) in [facility] Med-Surg floor bed. To address #2, patient received magnesium sulfate 1g IV x 1 dose (10/09/2024, 4:38pm) and is receiving magnesium sulfate 1g IV x 3 doses (10/09/2024, 4:58pm) in [facility] ER bed #B11B. I will check repeat Mg level in the 10/10/2024 am. To address #3, patient has no signs of acute ETOH intoxication and/or acute ETOH withdrawal. Hence, I have opted to hold OFF initiating CIWA scale scoring with ativan, librium, or gabapentin schedules on observation date 10/09/2024. Instead, I have opted to supplement patient with folic acid 1mg IV x 1 dose (10/09/2024, 3:53pm), thiamine 100mg IV x 1 dose (10/09/2024, 3:53pm), and MVI x 1 dose (10/09/2024, 7:00pm). To address #4, patient awaits repeat Hb testing in the 10/10/2024 am. I will reserve packed RBC transfusion for Hb level less than 7 g/dL. As stated in bullet #1 above, my clinical index of suspicion for acute spontaneous bacterial peritonitis remains low, and hence, I have not pursed a diagnostic workup (e.g., paracentesis) on observation date 10/09/2024. Instead, I have opted to treat patient empirically with ceftriaxone 1g IV x 1 dose (10/09/2024, 5:48pm) in [facility] ER bed #B11B, followed by ceftriaxone 2g IV daily x 4 doses (starting on 10/10/2024, 9:00am) in [facility] Med-Surg floor bed. Etiology of chronic macrocytic, normochromic anemia is most probably due to chronic ETOH-mediated bone marrow suppression; at the same time, I have ordered fecal occult blood testing (10/09/2024, 6:30pm) to check for possible acute blood loss anemia due to acute GI bleed in this patient with a history of "abdominal varices, consistent with portal HTN" (as reported on 09/12/2024, 5:43pm CT abd/pelvis without IV contrast). To address #5, patient awaits repeat platelet count testing in the 10/10/2024 am. I will reserve platelet transfusion for platelet count < 10. Etiology of chronic thrombocytopenia is most probably due to chronic ETOH-mediated bone marrow suppression. To address #6, patient awaits PT/OT/Case Management Service evaluations in the 10/10/2024 am to expedite hospital disposition to homeless halfway in the 10/10/2024 am. Discharge Exam Constitutional General: Comfortable, coherent, and cooperative. Not confused, obtunded, or lethargic. Patient speaks with regular tyra, and in complete, fluent, and articulate 7-9 word sentences without pause, interruption, cough, or wheeze with O2 sat 93% on room air (10/11/2024, 9:37am). HEENT: Normocephalic, atraumatic. No nystagmus, gaze paresis, anisocoria, miosis, mydriasis, hyphema, scleral injection, conjunctivitis, or pterygium. No otorrhea or rhinorrhea. No pharyngeal erythema, edema, or discharge. Neck: Supple, no stridor, bruit, goiter, or hepato-jugular reflux. Jugular venous pressure is estimated to be 3 cm above the sternal angle of Gary, which in turn, is 5 cm above the level of the right atrium; with jugular venous pressure estimated to be 8 cm, then, there is no jugular venous distention on 10/11/2024. Lymphatics: No cervical (anterior/posterior), supraclavicular, infraclavicular, axillary, epitrochlear, or inguinal adenopathy. Chest: Symmetric rise and fall with respirations. Non-tender to palpation. Lungs: Clear to auscultation and percussion. Heart: Regular rate and rhythm. S1 and S2 noted. No S3 or S4 summation gallop. No tripartite friction rub. Grade II/ early systolic murmur @ LLSB without radiation to the carotids, axilla, or back, and which remains invariant in regards to the respiratory cycle. Abdomen: Soft, non-tender, non-distended. No rebound, guarding, Tsang's sign, or organomegaly. Bowel sounds auscultated in all 4 quadrants. Extremities: No clubbing, cyanosis, or edema. Skin: Sallow complexion. Multiple left flank ecchymoses, non- tender. No decubitus ulcer or enanthem or exanthem. Neuro: Awake and oriented in regards to person, place, time, and situation. DTR+. 5/5 motor strength in all 4 extremities, both proximally and distally. No myoclonus or tics or tremors. Genito-urinary: No urethral discharge. No bonner catheter. Psycchiatry: No agitation. No anxiety. No panic. No depression. No suicidal ideation. No homicidal ideation. Discharge Plan Discharge Items Patient Disposition: Home - Self-Care Reason For Visit: ACUTE/CHRONIC ETOH ABUSE Discharge Diagnosis: 1. Chronic alcohol abuse, including drinking 1 quart of vodka in [facility] Med-Surg bed #E307-1 on 10/11/2024 am, and urinating on the floor of [facility] Med-Surg bed #E307-1 and on the floor of [facility] Nuclear Medicine floor on 10/11/2024 am while HIDA scan (10/11/2024, 7:51am) was performed 2. Chronic acalculous cholecystitis, due to chronic alcohol abuse. Condition on Discharge: Fair Activity: Per Instructions section Activity Comment: Stop drinking alcohol now and permanently. Lifting: Gradually increase as tolerated Bathing: No limitations Sexual Activity: When tolerated Exercise/Sports: As tolerated Driving/Machine Use: NO driving at all due to ongoing alcohol abuse. Weightbearing: Full weightbearing Non-emergency contact: Primary Care Provider Call non-emergency contact if: you have any medication questions Follow-up/Referrals: PCP,NO [Primary Care Provider] - Diet: Heart Healthy Addtl Attending Provider Instructions: See your family doctor within 5-7 days of hospital discharge. Pending Studies at Discharge: No Stand-Alone Forms: My [facility] [employer], Smoking Cessation Medications and DC Order Prescriptions: Continued multivitamin with folic acid [Daily-Mateus (with folic acid)] 400 mcg Tablet 1 tab PO QAM Qty: 30 0RF Rx Instructions: PER PT "NEVER PICKED UP FROM PHARMACY". thiamine HCl (vitamin B1) 250 mg tablet 250 mg PO BID Qty: 60 0RF Rx Instructions: PER PT "NEVER PICKED UP FROM PHARMACY". folic acid 1 mg tablet 1 mg PO DAILY Qty: 30 0RF Rx Instructions: PER PT "NEVER PICKED UP FROM PHARMACY". chlordiazepoxide HCl 10 mg Capsule See Rx Instructions .ROUTE .COMPLEX Qty: 6 0RF Rx Instructions: 10 mg orally twice a day for 2 days, then 10 mg once a day for 2 days, then stop gabapentin 300 mg Capsule 300 mg PO TID Qty: 60 0RF magnesium oxide 400 mg (241.3 mg magnesium) Tablet 800 mg PO BID Qty: 60 0RF Discontinued oxybutynin chloride 5 mg Tablet Extended Release 24hr 5 mg PO QAM Qty: 20 0RF Discharge Orders: Discharge Order (Routine); Ordered 10/11/24 Ordered By: Westley Burnett Admission Data Admit Date/Time: 10/09/24 16:54 Attending Provider: Westley Burnett Admit Provider: Westley Burnett Primary Care Provider: PCP,NO Other Providers: Rolanda Escalante Jr; Cher Hay; Gene Delgado Hospital Stay Data Consultations 10/09/24 16:22 ED Decision to Admit Stat 10/11/24 08:00 Consult Gastroenterology Routine Consult General Surgery Routine Diagnostic Imagining Performed 10/10/24 16:54 MR abdomen wo/w con Routine Pending Results Patient Have Any Pending Studies at Discharge: No Discharge Instructions Given to Patient (Per Discharging Provider) See your family doctor within 5-7 days of hospital discharge. Total Time Total Time Spent Total Time Spent (In Minutes): 35 minutes. Of this time period, 19 minutes were spent in coordinating patient's discharge. Coding Level of Care Code 29817 INP/OBS DISCH >30 MIN Diagnoses Acute calculous cholecystitis K80.00 Monocytosis D72.821 Hypomagnesemia E83.42 ETOH abuse F10.10 Macrocytic anemia D53.9 Thrombocytopenia D69.6 Homelessness Z59.00
[2024-10-11 12:56] LABS: Hepatitis A Antibody IgM NON-REACTIVE (NON-REACTIVE); Hepatitis B Core Antibody IgM NON-REACTIVE (NON-REACTIVE)
== END 2024-10-11 11:40 | disposition home or self-care (01) ==
LOC: ED 14:44 → 3E 14:44

== ENCOUNTER 2024-10-12 18:53 | Observation (INO) ==
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
[2024-10-12] MEDS: KETOROLAC TROMETHAMINE 15 MG/ML VIAL IV ONE (19:21)
[2024-10-12 19:27] LABS: Hematocrit (blood only) 26.5 % (42.0-52.0); Hemoglobin 8.9 g/dl (14.0-18.0); Immature Granulocytes # (auto) 0.01 K/uL (0.01-0.20); Immature Granulocytes % (auto) 0.2 %; Mean Corpuscular Hemoglobin 34.9 pg (25.0-34.0); Mean Corpuscular Volume 103.9 fL (80.0-100.0); Platelet Count 84 K/uL (130-400); RDW Standard Deviation 65.3 fL (36.4-46.3); Red Blood Count 2.55 M/uL (4.70-6.10); White Blood Count 5.84 K/ul (4.8-10.8)
[2024-10-12 19:46] LABS: Alanine Aminotransferase 31.0 U/L (7-52); Albumin Globulin Ratio 0.9 (0.9-2); Alkaline Phosphatase 142.0 U/L (34-104); Anion Gap 10.0 (3-11); Bilirubin,Total 2.9 mg/dl (0.2-1.0); Blood Urea Nitrogen 11.0 mg/dl (6-23); Calcium 8.8 mg/dl (8.6-10.3); Carbon Dioxide 28.0 mmol/L (21-32); Chloride 108.0 mmol/L (98-107); Creatinine Clr Calc Pharmacy 138.8 ml/min; Globulin 3.4 gm/dl (2.5-4.0); Glucose 104.0 mg/dl (70-99(Fasting)); Potassium 3.8 mmol/L (3.5-5.1); Sodium 146.0 mmol/L (136-145); Total Protein 6.6 gm/dl (6.0-8.3)
--- NOTE | 2024-10-12 21:00 | XRay Report ---
INDICATION: Pain TECHNIQUE: 3 views of the left great toe were obtained. COMPARISON: None FINDINGS: There is a subtle cortical defect with irregularity in the base of the distal phalanx of the hallux in its medial aspect. IMPRESSION: Subtle cortical defect with irregularity in the base of the distal phalanx of the hallux in its medial aspect. This may represent an age-indeterminate impaction cortical injury. Please correlate with site of pain. Electronically signed by Mathew Espino 10-12-2024 8:59 PM
[2024-10-12] MEDS: SODIUM CHLORIDE 0.9% 1,000 ML IV ONE (21:34)
[2024-10-12] MEDS: THIAMINE HCL 100 MG in SYRINGE 9 ML IV STA (21:56)
[2024-10-12] MEDS: FOLIC ACID 1 MG in SYRINGE 9.8 ML IV STA (21:56)
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
[2024-10-12] MEDS: NSS + 20MEQ KCL 20 MEQ/1,000 ML BAG IV SCH (23:57)
[2024-10-13] MEDS ORDERED: ONDANSETRON INJ 2 MG/ML 2 ML VIAL IV PRN (01:00)
[2024-10-13] MEDS ORDERED: Ativan IV Alcohol Withdrawal--Active Protocol IV PRN (01:00)
--- NOTE | 2024-10-13 06:47 | XRay Report ---
Exam(s): XR CXR 1 VIEW EXAM: XR Chest, 1 View CLINICAL HISTORY: Reason for exam: ? fall. TECHNIQUE: Frontal view of the chest. COMPARISON: No relevant prior studies available. FINDINGS: Lungs: Mild left basilar atelectasis. Pleural space: Unremarkable. No pneumothorax. Heart: Unremarkable. No cardiomegaly. Mediastinum: Unremarkable. Normal mediastinal contour. Bones/joints: Query left 9th posterior rib fracture versus overlying structures. IMPRESSION: 1. Query left 9th posterior rib fracture versus overlying structures. 2. Mild left basilar atelectasis. Electronically signed by: Sheridan Whitmore M.D. 10/13/24 06:46 AM
[2024-10-13 07:18] LABS: Hematocrit (blood only) 23.6 % (42.0-52.0); Hemoglobin 8.3 g/dl (14.0-18.0); Immature Granulocytes # (auto) 0.01 K/uL (0.01-0.20); Immature Granulocytes % (auto) 0.2 %; Mean Corpuscular Hemoglobin 36.2 pg (25.0-34.0); Mean Corpuscular Volume 103.1 fL (80.0-100.0); Platelet Count 65 K/uL (130-400); RDW Standard Deviation 65.3 fL (36.4-46.3); Red Blood Count 2.29 M/uL (4.70-6.10); White Blood Count 4.26 K/ul (4.8-10.8)
[2024-10-13 07:38] VITALS: RESP 18; TEMP 98.1
[2024-10-13 07:50] LABS: Alanine Aminotransferase 23.0 U/L (7-52); Albumin Globulin Ratio 1.0 (0.9-2); Alkaline Phosphatase 110.0 U/L (34-104); Anion Gap 7.0 (3-11); Bilirubin,Total 2.6 mg/dl (0.2-1.0); Blood Urea Nitrogen 11.0 mg/dl (6-23); Calcium 7.6 mg/dl (8.6-10.3); Carbon Dioxide 27.0 mmol/L (21-32); Chloride 111.0 mmol/L (98-107); Creatinine Clr Calc Pharmacy 188.1 ml/min; Globulin 2.7 gm/dl (2.5-4.0); Glucose 91.0 mg/dl (70-99(Fasting)); Magnesium 1.1 mg/dl (1.7-2.4); Potassium 3.8 mmol/L (3.5-5.1); Sodium 145.0 mmol/L (136-145); Total Protein 5.5 gm/dl (6.0-8.3)
[2024-10-13] MEDS: ALBUTEROL HFA 8 GM INHALER INH ONE (08:39)
[2024-10-13] MEDS ORDERED: THIAMINE HCL 100 MG in SODIUM CHLORIDE 0.9% 50 ML IV SCH (09:00)
[2024-10-13] MEDS: GABAPENTIN 300 MG CAP PO SCH (09:01)
[2024-10-13] MEDS: HEPARIN SOD 5,000 UNIT/0.5 ML VIAL SQ SCH (09:01)
[2024-10-13] MEDS: FOLIC ACID 1 MG in SYRINGE 9.8 ML IV SCH (09:01)
[2024-10-13] MEDS: THIAMINE HCL 100 MG in SYRINGE 9 ML IV SCH (09:02)
--- NOTE | 2024-10-13 09:38 | Hospitalist Progress Note ---
Date of Service October 13, 2024 Assessment & Plan (1) Alcoholic intoxication: Plan: AWSS protocol with IV Ativan Thiamine Folic acid Social work follow up (2) Alcoholic hepatitis: (3) ETOH abuse: Plan: Alcohol level 392.5 on admission (4) Homelessness: Plan: Follow up with social work, pt states he will find a home of his own. (5) Thrombocytopenia: Plan: -chronically low 2nd to etoh abuse (6) Pain of left great toe: Plan: X-ray suggests age-indeterminate cortical injury No acute intervention necessary Plan The patient is a 44-year-old male with history of alcoholic hepatitis, alcohol intoxication, alcohol dependency, and thrombocytopenia. He presented to the emergency department today due to complaining of left great toe pain, with x-ray showing an age-indeterminate cortical injury of his left great toe. His alcohol level was 392.5, and he was found by staff to be drinking alcohol while in the emergency department after his initial alcohol level was performed. He has a similar history of alcohol ingestion while in the hospital from 10/09-10/11/2024. He was discharged to the [facility] on 10/11/2024, after ref using help from vice president consulting services regarding helping him find a place to live. He stated that he would find a place on his own thank you. In the emergency department this evening, the patient received Toradol 15 mg IV, normal saline 1 L bolus, thiamine 100 mg IV, and folic acid 1 mg IV. Admission and Anticipated Discharge Date Admission Date: October 12, 2024 Subjective Pt was found drinking etoh that he had in his water bottle. Belonings taken away by nursing. Currently somnolent resting in bed. Review of Systems Review of Systems: CONST: Negative for fever, body aches and chills. HENT: Negative for neck pain/stiffness, headache, congestion, sore throat, swelling. EYES: Negative for discharge/pain or vision changes. RESP: Negative for cough/hemoptysis and shortness of breath. CV: Negative chest pain, difficulty breathing, palpitations. ABD: Negative pain, nausea, vomiting. : Negative increase frequency, dysuria, blood in urine or stool. MUSC: Negative for muscle aches, edema. SKIN: Negative rash, lesions/sores. NEURO: Negative headache, dizziness, weakness. Physical Exam Physical Exam: GENERAL APPEARANCE NAD, activity normal for age, well developed/ well nourished, no cyanosis, pallor, or diaphoresis. EYES lids/conjunctiva normal. EARS/NOSE/THROAT Mucous membranes moist, nares normal, lips/teeth normal uvula midline without oral pharyngeal erythema, exudate or swelling TMs normal bilaterally. No lymphangitis/lymphedema. HEAD/NECK normocephalic atraumatic, no facial trauma, neck is supple. RESPIRATORY respiratory effort normal, speaks in full sentences, no tripod position, no accessory muscle use. Lungs clear to auscultation without rhonchi, wheezes, rales CARDIAC Regular rate and rhythm, no edema. ABDOMINAL Soft, ND/NT. No evidence of fluid wave. No pulsatile masses on exam, rebound tenderness, Tsang sign or pain over Mcburney's point. MUSCLES/EXTREMITIES No abnormal range of motion, no swelling. SKIN Warm, pink and dry. No rashes, dermatoses, petechiae or lesions. NEUROLOGICAL Speech is clear and appropriate. Normal level of consciousness. Gait and coordination are normal. 5/5 strength in all extremities. PSYCH Normal mood and affect. Judgement/competence is appropriate Results & Data Results & Data Vital Signs (Past 12 Hours) Vital Signs Temp Pulse Pulse Resp BP BP Pulse Ox 10/13/24 07:37 36.7 C 96 H 18 102/63 98 10/13/24 06:11 86 16 96 10/13/24 05:38 36.9 C 89 20 113/64 96 10/13/24 01:04 36.4 C L 92 H 20 124/83 96 10/13/24 00:59 90 10/13/24 00:42 82 17 100 10/13/24 00:30 102/71 10/13/24 00:30 102/71 10/13/24 00:30 102/71 10/13/24 00:30 84 15 100 10/13/24 00:21 99 H 16 10/13/24 00:12 89 12 99 10/13/24 00:00 109/57 L 10/13/24 00:00 109/57 L 10/13/24 00:00 91 H 16 100 10/13/24 00:00 109/57 L 10/13/24 00:00 98 10/12/24 23:57 91 H 14 100 10/12/24 23:45 96 H 19 99 10/12/24 23:24 89 16 10/12/24 23:15 96 H 90 10/12/24 23:00 101/71 10/12/24 22:34 90 16 102/71 94 10/12/24 22:33 93 H 93 10/12/24 22:18 87 95 10/12/24 22:00 103/67 10/12/24 22:00 87 18 103/67 90 10/12/24 21:55 83 O2 Del Method O2 Flow Rate 10/13/24 07:37 Room Air 10/13/24 06:11 Nasal Cannula 2 10/13/24 05:38 Nasal Cannula 2 10/13/24 01:04 Room Air 10/13/24 00:59 10/13/24 00:42 10/13/24 00:30 10/13/24 00:30 10/13/24 00:30 10/13/24 00:30 10/13/24 00:21 10/13/24 00:12 10/13/24 00:00 10/13/24 00:00 10/13/24 00:00 10/13/24 00:00 10/13/24 00:00 Oxymask 6 10/12/24 23:57 10/12/24 23:45 10/12/24 23:24 10/12/24 23:15 Nasal Cannula 6 10/12/24 23:00 10/12/24 22:34 10/12/24 22:33 10/12/24 22:18 10/12/24 22:00 10/12/24 22:00 10/12/24 21:55 PG Care Time/CCT Total # of Minutes Spent Total Time Spent with Patient: Total time spent is greater than 50% in coordination of care (as documented) at patient's floor/unit and/or counseling patient: Coding Level of Care Code 91343 SUB INP/OBS CARE 2/35MIN Diagnoses Alcoholic intoxication F10.920 Complication of substance-induced condition: uncomplicated Alcoholic hepatitis K70.10 Ascites presence: unspecified ETOH abuse F10.10 Homelessness Z59.00 Thrombocytopenia D69.6 Pain of left great toe M79.675 (1) Alcoholic intoxication Complication of substance-induced condition: uncomplicated Qualified Code(s): F10.920 - Alcohol use, unspecified with intoxication, uncomplicated (2) Alcoholic hepatitis Ascites presence: unspecified Qualified Code(s): K70.10 - Alcoholic hepatitis without ascites
[2024-10-13 11:32] VITALS: BP 110/68; O2SAT 96
--- NOTE | 2024-10-13 13:09 | Discharge Summary ---
Discharge Summary Date of Service October 13, 2024 Principal Dx & Hospital Course #1 = Principal Diagnosis (1) Alcoholic intoxication: AWSS protocol with IV Ativan Thiamine Folic acid Social work follow up (2) Alcoholic hepatitis: (3) ETOH abuse: Alcohol level 392.5 on admission (4) Homelessness: Follow up with social work, pt states he will find a home of his own. (5) Thrombocytopenia: -chronically low 2nd to etoh abuse (6) Pain of left great toe: X-ray suggests age-indeterminate cortical injury No acute intervention necessary Plan The patient is a 44-year-old male with history of alcoholic hepatitis, alcohol intoxication, alcohol dependency, and thrombocytopenia. He presented to the emergency department today due to complaining of left great toe pain, with x-ray showing an age-indeterminate cortical injury of his left great toe. His alcohol level was 392.5, and he was found by staff to be drinking alcohol while in the emergency department after his initial alcohol level was performed. He has a similar history of alcohol ingestion while in the hospital from 10/09-10/11/2024. He was discharged to the [facility] on 10/11/2024, after refusing help from social services technician regarding helping him find a place to live. He stated that he would find a place on his own thank you. In the emergency department this evening, the patient received Toradol 15 mg IV, normal saline 1 L bolus, thiamine 100 mg IV, and folic acid 1 mg IV. Admission HPI Per Admitting Provider The patient is a 44-year-old male with history of alcoholic hepatitis, alcohol intoxication, alcohol dependency, and thrombocytopenia. He presented to the emergency department today due to complaining of left great toe pain, with x-ray showing an age-indeterminate cortical injury of his left great toe. His alcohol level was 392.5, and he was found by staff to be drinking alcohol while in the emergency department after his initial alcohol level was performed. He has a similar history of alcohol ingestion while in the hospital from 10/09-10/11/2024. He was discharged to the [facility] on 10/11/2024, after refusing help from social services technician regarding helping him find a place to live. He stated that he would find a place on his own thank you. In the emergency department this evening, the patient received Toradol 15 mg IV, normal saline 1 L bolus, thiamine 100 mg IV, and folic acid 1 mg IV. Discharge Exam GENERAL APPEARANCE NAD, activity normal for age, well developed/ well nourished, no cyanosis, pallor, or diaphoresis. EYES lids/conjunctiva normal. EARS/NOSE/THROAT Mucous membranes moist, nares normal, lips/teeth normal uvula midline without oral pharyngeal erythema, exudate or swelling TMs normal bilaterally. No lymphangitis/lymphedema. HEAD/NECK normocephalic atraumatic, no facial trauma, neck is supple. RESPIRATORY respiratory effort normal, speaks in full sentences, no tripod position, no accessory muscle use. Lungs clear to auscultation without rhonchi, wheezes, rales CARDIAC Regular rate and rhythm, no edema. ABDOMINAL Soft, ND/NT. No evidence of fluid wave. No pulsatile masses on exam, rebound tenderness, Tsang sign or pain over Mcburney's point. MUSCLES/EXTREMITIES No abnormal range of motion, no swelling. SKIN Warm, pink and dry. No rashes, dermatoses, petechiae or lesions. NEUROLOGICAL Speech is clear and appropriate. Normal level of consciousness. Gait and coordination are normal. 5/5 strength in all extremities. PSYCH Normal mood and affect. Judgement/competence is appropriate Discharge Plan Discharge Items Patient Disposition: Home - Self-Care Reason For Visit: ALCOHOLINTOXICATION, PERIPHERAL NEUROPATHY Discharge Diagnosis: alcohol intoxication Condition on Discharge: Fair Activity: Resume your previous activity Non-emergency contact: Primary Care Provider Call non-emergency contact if: you have any medication questions Follow-up/Referrals: PCP,NO [Primary Care Provider] - Diet: Regular Addtl Attending Provider Instructions: Follow up with PMD in 1 week Pending Studies at Discharge: No Stand-Alone Forms: My [employer], Smoking Cessation Medications and DC Order Prescriptions: Continued multivitamin with folic acid [Daily-Mateus (with folic acid)] 400 mcg Tablet 1 tab PO QAM Qty: 30 0RF Rx Instructions: PER PT "NEVER PICKED UP FROM PHARMACY". thiamine HCl (vitamin B1) 250 mg tablet 250 mg PO BID Qty: 60 0RF Rx Instructions: PER PT "NEVER PICKED UP FROM PHARMACY". folic acid 1 mg tablet 1 mg PO DAILY Qty: 30 0RF Rx Instructions: PER PT "NEVER PICKED UP FROM PHARMACY". gabapentin 300 mg Capsule 300 mg PO TID Qty: 60 0RF magnesium oxide 400 mg (241.3 mg magnesium) Tablet 800 mg PO BID Qty: 60 0RF Discharge Orders: Discharge Order (Routine); Ordered 10/13/24 Ordered By: Eber Stein Admission Data Admit Date/Time: 10/12/24 23:20 Attending Provider: Eber Stein Admit Provider: Phoenix Mercedes Primary Care Provider: PCP,NO Other Providers: Phoenix Mercedes Hospital Stay Data Consultations 10/12/24 22:51 ED Decision to Admit Stat Pending Results Patient Have Any Pending Studies at Discharge: No Discharge Instructions Given to Patient (Per Discharging Provider) Follow up with PMD in 1 week Total Time Total Time Spent Total Time Spent (In Minutes): 50 Coding Level of Care Code 57983 INP/OBS DISCH >30 MIN Diagnoses Alcoholic intoxication F10.920 Complication of substance-induced condition: uncomplicated Alcoholic hepatitis K70.10 Ascites presence: unspecified ETOH abuse F10.10 Homelessness Z59.00 Thrombocytopenia D69.6 Pain of left great toe M79.675
[2024-10-13 14:02] VITALS: PULSE 102
== END 2024-10-13 14:02 | disposition home or self-care (01) ==
LOC: ED 18:53 → 2S 23:20 → SUATTDRO 23:20 → INTOOBSV 23:20 → 2S 10-13 00:40

== ENCOUNTER 2024-10-23 14:15 | Inpatient (IN) ==
[2024-10-23 15:30] LABS: Hematocrit (blood only) 28.3 % (42.0-52.0); Hemoglobin 9.5 g/dl (14.0-18.0); Immature Granulocytes # (auto) 0.02 K/uL (0.01-0.20); Immature Granulocytes % (auto) 0.3 %; Mean Corpuscular Hemoglobin 34.8 pg (25.0-34.0); Mean Corpuscular Volume 103.7 fL (80.0-100.0); Platelet Count 91 K/uL (130-400); RDW Standard Deviation 60.5 fL (36.4-46.3); Red Blood Count 2.73 M/uL (4.70-6.10); White Blood Count 6.30 K/ul (4.8-10.8)
--- NOTE | 2024-10-23 15:40 | XRay Report ---
XR chest 1V not portable CLINICAL HISTORY: Chest pain, nonspecific COMPARISON STUDY: 10/12/2024 FINDINGS: Heart size and pulmonary vasculature are normal. No effusion, consolidation, or pneumothora x. IMPRESSION: No acute findings. ACT 112: Negative or not required by law. Electronically signed by: Quang Sanchez M.D. 10/23/2024 3:39 PM
[2024-10-23 15:43] LABS: Anion Gap 14.0 (3-11); Bilirubin,Total 2.8 mg/dl (0.2-1.0); Calcium 8.2 mg/dl (8.6-10.3); Carbon Dioxide 25.0 mmol/L (21-32); Chloride 105.0 mmol/L (98-107); Potassium 3.7 mmol/L (3.5-5.1); Sodium 144.0 mmol/L (136-145)
[2024-10-23 15:49] LABS: Alanine Aminotransferase 26.0 U/L (7-52); Albumin Globulin Ratio 1.0 (0.9-2); Alkaline Phosphatase 123.0 U/L (34-104); Blood Urea Nitrogen 15.0 mg/dl (6-23); Creatinine Clr Calc Pharmacy 141.5 ml/min; Globulin 3.5 gm/dl (2.5-4.0); Glucose 85.0 mg/dl (70-99(Fasting)); Total Protein 7.1 gm/dl (6.0-8.3)
[2024-10-23 16:02] LABS: INR 1.3 (0.9-1.1); Partial Thromboplastin Time 32 Seconds (21-31); Prothrombin Time 13.4 Seconds (9.0-12.0)
[2024-10-23] MEDS: OPTIRAY 320 125ml IV ONE (16:55)
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
--- NOTE | 2024-10-23 18:00 | CT Scan Report ---
Exam: CT angiogram chest pulmonary embolus protocol. Reason for exam: Dyspnea with a history of asthma. Chest pressure. Numbness in bilateral legs. Recent neuropathy diagnosis. Previous studies: Chest radiograph 10/09/2024. FINDINGS: There is good opacification of the pulmonary arteries. At this time no persistent filling defect to indicate embolus is seen on either side. No evidence of aortic aneurysm or dissection is seen. No significant coronary artery calcification is seen. No pulmonary artery enlargement or right ventricular strain is indicated. No mediastinal mass or adenopathy is seen. No pneumothorax or pleural effusion is seen. Lungs show no evidence of active infiltrate, collapse or edema. IMPRESSION: 1. Negative for pulmonary embolus. 2. Negative for aortic dissection. 3. Negative for significant coronary calcification. 4. Clear lung zones. Electronically signed by Quang Foster 10-23-2024 5:59 PM
--- NOTE | 2024-10-23 19:34 | Ultrasound Report ---
EXAM: US venous doppler LE BI CLINICAL HISTORY: bilateral leg swelling and pain TECHNIQUE: Ultrasound examination of bilateral lower extremity veins was performed in real time and duplex. One or more of the following were performed- spectral analysis, resistive index, waveform analysis, and pulsed Doppler. COMPARISON: None. FINDINGS: Normal phasic, non-pulsatile and spontaneous flow is noted in bilateral common femoral, saphenofemoral junction, superficial femoral, popliteal, posterior tibial, anterior tibial, and peroneal veins. Visualized veins of both lower extremities demonstrate normal compressibility. No sonographic evidence of acute deep vein thrombosis (DVT) is detected in the visualized veins of both lower extremities. Compression and Augmentation: All evaluated veins compress fully with applied transducer pressure. Augmentation of venous flow is noted with distal compression. Additional Findings: No evidence of intraluminal thrombus. IMPRESSION: No sonographic evidence of acute DVT detected in bilateral common femoral, superficial femoral, popliteal, anterior tibial, posterior tibial and peroneal veins, at the time of examination. Disclaimer: DVT could be missed early in the disease when clot burden is minimal. For patients with moderate and high pretest probability of DVT and negative ultrasound, the [employer] clinical guidelines recommend testing with a D-dimer assay or repeat ultrasound in 5-7 days. If symptoms worsen, the Society of radiologists in ultrasound recommends repeating ultrasound even earlier. Electronically signed by Bakari Rodriguez 10-23-2024 7:34 PM
[2024-10-23] MEDS: SODIUM CHLORIDE 0.9% 1,000 ML IV ONE (20:25)
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
[2024-10-23] MEDS ORDERED: Ativan IV Alcohol Withdrawal--Active Protocol IV PRN (23:42)
[2024-10-23] MEDS: LACTATED RINGER'S 1,000 ML IV SCH (23:49)
[2024-10-24] MEDS: GABAPENTIN 300 MG CAP PO SCH (00:24)
[2024-10-24] MEDS: FOLIC ACID 1 MG in SYRINGE 9.8 ML IV STA (00:24)
[2024-10-24] MEDS: THIAMINE HCL 100 MG in SYRINGE 9 ML IV STA (00:24)
[2024-10-24 05:44] LABS: Amphetamines+Metham, Urine Neg (Neg); MDMA (Ecstacy), Urine Neg (Neg); Marijuana, Urine Pos (Neg)
[2024-10-24 06:26] LABS: Hematocrit (blood only) 25.6 % (42.0-52.0); Hemoglobin 8.8 g/dl (14.0-18.0); Immature Granulocytes # (auto) 0.01 K/uL (0.01-0.20); Immature Granulocytes % (auto) 0.2 %; Mean Corpuscular Hemoglobin 35.3 pg (25.0-34.0); Mean Corpuscular Volume 102.8 fL (80.0-100.0); Platelet Count 64 K/uL (130-400); RDW Standard Deviation 57.0 fL (36.4-46.3); Red Blood Count 2.49 M/uL (4.70-6.10); White Blood Count 4.28 K/ul (4.8-10.8)
[2024-10-24 06:53] LABS: Alanine Aminotransferase 21.0 U/L (7-52); Albumin Globulin Ratio 1.0 (0.9-2); Alkaline Phosphatase 126.0 U/L (34-104); Anion Gap 9.0 (3-11); Bilirubin,Total 2.1 mg/dl (0.2-1.0); Blood Urea Nitrogen 11.0 mg/dl (6-23); Calcium 7.7 mg/dl (8.6-10.3); Carbon Dioxide 26.0 mmol/L (21-32); Chloride 106.0 mmol/L (98-107); Creatinine Clr Calc Pharmacy 177.5 ml/min; Globulin 2.9 gm/dl (2.5-4.0); Glucose 96.0 mg/dl (70-99(Fasting)); Magnesium 1.0 mg/dl (1.7-2.4); Potassium 3.5 mmol/L (3.5-5.1); Sodium 141.0 mmol/L (136-145); Total Protein 5.9 gm/dl (6.0-8.3)
[2024-10-24] MEDS: MAGNESIUM SULFATE / D5W 1 GM/100 ML BAG IV SCH (08:17)
[2024-10-24] MEDS: THIAMINE HCL 100 MG TAB PO SCH (08:17)
[2024-10-24] MEDS: FOLIC ACID 1 MG TAB PO SCH (08:17)
[2024-10-24] MEDS: ALBUTEROL HFA 8 GM INHALER INH PRN (09:24)
--- NOTE | 2024-10-24 10:36 | XRay Report ---
XR foot LT 2V CLINICAL HISTORY: left big toes pain, r/o fracture COMPARISON: 10/12/2024 FINDINGS: No acute fracture or dislocation seen. No evidence of osteomyelitis. No erosion or signifi cant degenerative change. IMPRESSION: No fracture seen. ACT 112: Negative or not required by law. Electronically signed by: Quang Sanchez M.D. 10/24/2024 10:33 AM
[2024-10-24] MEDS: VITAMIN B COMPLEX TAB PO SCH (13:17)
--- NOTE | 2024-10-24 15:53 | Hospitalist Progress Note ---
Date of Service October 24, 2024 Assessment & Plan (1) Alcoholic intoxication: (2) At risk for alcohol withdrawal: (3) Alcoholic hepatitis: (4) Thrombocytopenia: (5) Homelessness: (6) Alcoholism /alcohol abuse: Plan The patient is a 44-year-old male with H alcohol abuse, alcohol intoxication, history of alcohol withdrawal thrombocytopenia, homelessness and alcoholic hepatitis. He presented to the emergency department with complaint of a 1 hour long episode of shortness of breath earlier in the day today. high d-dimer He underwent a CTA chest PE protocol which was negative, and venous Dopplers of bilateral extremities which was negative for DVT. Patient has no further symptoms of shortness of breath. He continues to be homeless. He continues to have significant alcohol ingestion, with current alcohol level 450.6. I have asked emergency department to give him a liter of normal saline to start with, and he will be admitted to the hospital for monitoring of alcohol withdrawal, and attempt to help him find a place to live. Shortness of breath- suspect asthma exacerbation, duoneb Patient with elevated D-dimer of 1560 CTA chest PE protocol was negative Venous Doppler bilateral lower extremities negative for DVT Patient is mildly hypoxic, likely has symptoms secondary to mild respiratory depression from elevated alcohol level hypomagnesemia-s/p IV magnesium replacement Alcohol intoxication/alcohol abuse/at risk for alcohol withdrawal- Admit to monitored bed Previous admissions from 10/09-10/11/2024, and 10/12-10/13/2024 Alcohol level 450.6 Thiamine 100 mg IV now and then 100 mg p.o. every morning Folic acid 1 mg IV now, and then 1 mg p.o. every morning To receive 1 L normal saline bolus in ED LR at 125 mL/h x 2 L Continue gabapentin 300 mg p.o. 3 times daily. He reports he cannot afford this medication in the outpatient setting AWSS protocol with IV Ativan Alcoholic hepatitis- Total bilirubin 2.8, AST 104, ALT 26, alkaline phosphatase 123 and INR 1.3 MELD sodium score 13 Thrombocytopenia- Platelets are 91, which is a bit higher than usual, but likely secondary to hemoconcentration and more highly elevated alcohol than usual Homelessness- Ask social security assessor to evaluate patient for possible available services Admission and Anticipated Discharge Date Admission Date: October 23, 2024 Subjective He's beenn having shortness of breath, difficulty with deep inhalation started on duoneb low magnesium, started replacement mentioned neuropathy; and worse on the left big toes on gabapentin he's currently homeless Physical Exam Physical Exam: VITALS: Reviewed. WEIGHT/BMI reviewed. GEN: Healthy appearing, well-developed, NAD. Neuro: AAox3; decrease sensation in the foot and big toes. -Head: NC/AT; -Eyes: PERRL, EOMI. No discharge or redn ess; -Nose: Normal nares. CV: RRR, no m/r/g. LUNGS: CTAB, no w/r/c. decrease breath sound ABD: Soft, NT/ND, NBS, no masses or organomegaly. : N/A SKIN: Warm, well perfused. No skin rashes or abnormal lesions. MSK: No deformities, Normal gait. EXT: No clubbing, cyanosis, or edema. Results & Data Results & Data Vital Signs (Past 12 Hours) Vital Signs Temp Pulse Pulse Resp BP Pulse Ox O2 Del Method 10/24/24 14:00 103 H 10/24/24 12:08 37.3 C 105 H 18 124/67 95 Room Air 10/24/24 09:24 106 H 16 96 Room Air 10/24/24 07:40 Room Air 10/24/24 07:36 37.0 C 93 H 18 109/68 93 Room Air 10/24/24 07:27 98 H PG Care Time/CCT Total # of Minutes Spent Total Time Spent with Patient: Total time spent is greater than 50% in coordination of care (as documented) at patient's floor/unit and/or counseling patient: Coding Level of Care Code 18206 SUB INP/OBS CARE 2/35MIN Diagnoses Alcoholic intoxication F10.920 Complication of substance-induced condition: uncomplicated At risk for alcohol withdrawal Z91.89 Alcoholic hepatitis K70.10 Ascites presence: unspecified Thrombocytopenia D69.6 Homelessness Z59.00 Alcoholism /alcohol abuse F10.20 Time Spent (min) 35 (1) Alcoholic intoxication Complication of substance-induced condition: uncomplicated Qualified Code(s): F10.920 - Alcohol use, unspecified with intoxication, uncomplicated (3) Alcoholic hepatitis Ascites presence: unspecified Qualified Code(s): K70.10 - Alcoholic hepatitis without ascites
[2024-10-25] MEDS: ONDANSETRON INJ 2 MG/ML 2 ML VIAL IV PRN (00:32)
[2024-10-25] MEDS: ALBUT/IPRATROP 3MG/0.5MG NEB 3 ML VIAL NEB SCH (00:33)
--- NOTE | 2024-10-25 04:43 | Electrocardiogram Report ---
Test Reason : Blood Pressure : */* mmHG Vent. Rate : 97 BPM Atrial Rate : 97 BPM P-R Int : 150 ms QRS Dur : 80 ms QT Int : 394 ms P-R-T Axes : 71 26 65 degrees QTcB Int : 500 ms Normal sinus rhythm Prolonged QT Abnormal ECG When compared with ECG of 09-Oct-2024 22:44, No significant change was found Confirmed by Diaz Main ([id number]) on 10/25/2024 4:43:22 AM Referred By: Confirmed By: Diaz Main
--- NOTE | 2024-10-25 04:44 | Electrocardiogram Report ---
Test Reason : Blood Pressure : */* mmHG Vent. Rate : 92 BPM Atrial Rate : 92 BPM P-R Int : 148 ms QRS Dur : 80 ms QT Int : 386 ms P-R-T Axes : 74 31 69 degrees QTcB Int : 478 ms Normal sinus rhythm Prolonged QT Abnormal ECG When compared with ECG of 23-Oct-2024 15:07, No significant change was found Confirmed by Diaz Main ([id number]) on 10/25/2024 4:44:10 AM Referred By: REFERRED SELF Confirmed By: Diaz Main
[2024-10-25 05:08] LABS: Hematocrit (blood only) 29.0 % (42.0-52.0); Hemoglobin 10.3 g/dl (14.0-18.0); Immature Granulocytes # (auto) 0.02 K/uL (0.01-0.20); Immature Granulocytes % (auto) 0.4 %; Mean Corpuscular Hemoglobin 35.5 pg (25.0-34.0); Mean Corpuscular Volume 100.0 fL (80.0-100.0); Platelet Count 65 K/uL (130-400); RDW Standard Deviation 52.4 fL (36.4-46.3); Red Blood Count 2.90 M/uL (4.70-6.10); White Blood Count 4.76 K/ul (4.8-10.8)
[2024-10-25 05:43] LABS: Alanine Aminotransferase 22.0 U/L (7-52); Albumin Globulin Ratio 1.0 (0.9-2); Alkaline Phosphatase 114.0 U/L (34-104); Anion Gap 9.0 (3-11); Bilirubin,Total 3.3 mg/dl (0.2-1.0); Blood Urea Nitrogen 7.0 mg/dl (6-23); Calcium 7.9 mg/dl (8.6-10.3); Carbon Dioxide 27.0 mmol/L (21-32); Chloride 99.0 mmol/L (98-107); Creatinine Clr Calc Pharmacy 151.5 ml/min; Globulin 3.1 gm/dl (2.5-4.0); Glucose 90.0 mg/dl (70-99(Fasting)); Magnesium 1.1 mg/dl (1.7-2.4); Potassium 3.8 mmol/L (3.5-5.1); Sodium 135.0 mmol/L (136-145); Total Protein 6.2 gm/dl (6.0-8.3)
[2024-10-25] MEDS: MAGNESIUM SULFATE / D5W 1 GM/100 ML BAG IV SCH (09:07)
--- NOTE | 2024-10-25 16:54 | Hospitalist Progress Note ---
Date of Service October 25, 2024 Assessment & Plan (1) Alcoholic intoxication: (2) At risk for alcohol withdrawal: (3) Alcoholic hepatitis: (4) Thrombocytopenia: (5) Homelessness: (6) Alcoholism /alcohol abuse: Plan The patient is a 44-year-old male with H alcohol abuse, alcohol intoxication, history of alcohol withdrawal thrombocytopenia, homelessness and alcoholic hepatitis. He presented to the emergency department with complaint of a 1 hour long episode of shortness of breath earlier in the day today. high d-dimer He underwent a CTA chest PE protocol which was negative, and venous Dopplers of bilateral extremities which was negative for DVT. Patient has no further symptoms of shortness of breath. He continues to be homeless. He continues to have significant alcohol ingestion, with current alcohol level 450.6. I have asked emergency department to give him a liter of normal saline to start with, and he will be admitted to the hospital for monitoring of alcohol withdrawal, and attempt to help him find a place to live. Shortness of breath- suspect asthma exacerbation, duoneb provide Patient with elevated D-dimer of 1560 CTA chest PE protocol was negative Venous Doppler bilateral lower extremities negative for DVT Patient is mildly hypoxic, likely has symptoms secondary to mild respiratory depression from elevated alcohol level hypomagnesemia-s/p IV magnesium replacement Alcohol intoxication/alcohol abuse/at risk for alcohol withdrawal- Admit to monitored bed Previous admissions from 10/09-10/11/2024, and 10/12-10/13/2024 Alcohol level 450.6 Thiamine, folic Continue gabapentin 300 mg p.o. 3 times daily. He reports he cannot afford this medication in the outpatient setting AWSS protocol with IV Ativan Alcoholic hepatitis- Total bilirubin 2.8, AST 104, ALT 26, alkaline phosphatase 123 and INR 1.3 MELD sodium score 13 Thrombocytopenia- Platelets are 91, which is a bit higher than usual, but likely secondary to he moconcentration and more highly elevated alcohol than usual Homelessness- Ask social media sr strategy manager to evaluate patient for possible available services Admission and Anticipated Discharge Date Admission Date: October 23, 2024 Subjective he still have low magnesium and shortness of breath c/w IV magnesium, duoneb treatment his tax attorney called and requested document to showed that he is admitted he's on tramadol he does not want family update estranged from his father. in addition. he's trying to find a job that compatible with his neuropathy Physical Exam Physical Exam: General: no acute distress neuro: AAOx3; decrease sensation to soft touch in the foot heent: AT/nc heart; Normal s1; s2; RRR lung: decrease breath sound abdomen: soft to touch; non-tender to palpitation MSK :no edema; Results & Data Results & Data Vital Signs (Past 12 Hours) Vital Signs Temp Pulse Pulse Resp BP Pulse Ox O2 Del Method 10/25/24 15:19 37.2 C 92 H 18 112/74 96 Room Air 10/25/24 12:11 Room Air 10/25/24 12:10 36.8 C 98 H 18 110/64 97 Room Air 10/25/24 07:51 85 10/25/24 07:15 36.6 C 93 H 18 100/68 99 Room Air 10/25/24 07:05 102 H 18 95 Room Air Laboratory Results Laboratory Results - last 72 hr 10/23/24 10/24/24 10/24/24 15:08 02:10 06:02 WBC 6.30 4.28 L RBC 2.73 L 2.49 L Hgb 9.5 L 8.8 L Hct 28.3 L 25.6 L MCV 103.7 H 102.8 H MCH 34.8 H 35.3 H MCHC 33.6 34.4 RDW Std Deviation 60.5 H 57.0 H RDW Coeff of Milagros 15.9 H 15.1 H Plt Count 91 L 64 L MPV 10.2 10.7 Immature Gran % (Auto) 0.3 0.2 Neut % (Auto) 60.1 62.7 Lymph % (Auto) 28.1 22.9 [place] % (Auto) 7.5 10.0 Eos % (Auto) 1.9 2.8 Baso % (Auto) 2.1 1.4 Neut # (Auto) 3.79 2.68 Lymph # (Auto) 1.77 0.98 L [place] # (Auto) 0.47 0.43 Eos # (Auto) 0.12 0.12 Baso # (Auto) 0.13 0.06 Immature Gran # (Auto) 0.02 0.01 PT 13.4 H INR 1.3 H APTT 32 H PTT Ratio 1.2 D-Dimer 1560 H* Sodium 144 141 Potassium 3.7 3.5 Chloride 105 106 Carbon Dioxide 25 26 Anion Gap 14 H 9 BUN 15 11 Creatinine 0.67 0.54 L Est Cr Clr Drug Dosing 141.5 177.5 eGFR 116.61 124.46 BUN/Creatinine Ratio 22.4 H 20.4 H Glucose 85 96 Calcium 8.2 L 7.7 L Magnesium 1.0 L Total Bilirubin 2.8 H 2.1 H AST 104 H 82 H ALT 26 21 Alkaline Phosphatase 123 H 126 H Troponin I High Sens 3.6 Total Protein 7.1 5.9 L Albumin 3.6 3.0 L Globulin 3.5 2.9 Albumin/Globulin Ratio 1.0 1.0 Vitamin B12 1272 H Urine Opiates Screen Neg Ur Methadone, Qual Neg Urine Fentanyl Screen Neg Urine Barbiturates Neg Ur Phencyclidine (PCP) Neg U Amphetamin/Meth Scrn Neg MDMA (Ecstasy) Screen Neg U Benzodiazepines Scrn Pos H Ur Cocaine Metabolite Neg U Marijuana (THC) Screen Pos H Ethyl Alcohol mg/dL 450.6 H 10/25/24 04:14 WBC 4.76 L RBC 2.90 L Hgb 10.3 L Hct 29.0 L MCV 100.0 MCH 35.5 H MCHC 35.5 RDW Std Deviation 52.4 H RDW Coeff of Milagros 14.3 Plt Count 65 L MPV 10.7 Immature Gran % (Auto) 0.4 Neut % (Auto) 69.2 Lymph % (Auto) 19.1 [place] % (Auto) 8.0 Eos % (Auto) 2.7 Baso % (Auto) 0.6 Neut # (Auto) 3.29 Lymph # (Auto) 0.91 L [place] # (Auto) 0.38 Eos # (Auto) 0.13 Baso # (Auto) 0.03 Immature Gran # (Auto) 0.02 PT INR APTT PTT Ratio D-Dimer Sodium 135 L Potassium 3.8 Chloride 99 Carbon Dioxide 27 Anion Gap 9 BUN 7 Creatinine 0.63 Est Cr Clr Drug Dosing 151.5 eGFR 118.80 BUN/Creatinine Ratio 11.1 Glucose 90 Calcium 7.9 L Magnesium 1.1 L Total Bilirubin 3.3 H D AST 87 H ALT 22 Alkaline Phosphatase 114 H Troponin I High Sens Total Protein 6.2 Albumin 3.1 L Globulin 3.1 Albumin/Globulin Ratio 1.0 Vitamin B12 Urine Opiates Screen Ur Methadone, Qual Urine Fentanyl Screen Urine Barbiturates Ur Phencyclidine (PCP) U Amphetamin/Meth Scrn MDMA (Ecstasy) Screen U Benzodiazepines Scrn Ur Cocaine Metabolite U Marijuana (THC) Screen Ethyl Alcohol mg/dL PG Care Time/CCT Total # of Minutes Spent Total Time Spent with Patient: Total time spent is greater than 50% in coordination of care (as documented) at patient's floor/unit and/or counseling patient: Coding Level of Care Code 29838 SUB INP/OBS CARE 2/35MIN Diagnoses Alcoholic intoxication F10.920 Complication of substance-induced condition: uncomplicated At risk for alcohol withdrawal Z91.89 Alcoholic hepatitis K70.10 Ascites presence: unspecified Thrombocytopenia D69.6 Homelessness Z59.00 Alcoholism /alcohol abuse F10.20 Time Spent (min) 35 (1) Alcoholic intoxication Complication of substance-induced condition: uncomplicated Qualified Code(s): F10.920 - Alcohol use, unspecified with intoxication, uncomplicated (3) Alcoholic hepatitis Ascites presence: unspecified Qualified Code(s): K70.10 - Alcoholic hepatitis without ascites
[2024-10-25] MEDS ORDERED: ALBUT/IPRATROP 3MG/0.5MG NEB 3 ML VIAL NEB PRN (16:57)
[2024-10-25] MEDS: ACETAMINOPHEN 325 MG TAB PO PRN (20:36)
--- NOTE | 2024-10-25 21:52 | Communication Note ---
Date of Service: October 25, 2024 Patient developed fever of of 39C With associated with associated tachycardia of 116. Evaluated patient at bedside who endorses shortness of breath and dif ficulty with deep inspiration that is not much worse since time of admission, but still bothersome. Denies having any chest pain, chest tightness, pleurisy, chills, fevers, any other systemic symptom. Exam with good air movement on left air leonardo but some decreased breath sounds on right lung base, although exam somewhat limited. Did get blood cultures and chest x-ray to evaluate further. Chest x-ray overall unremarkable, and blood culture pending. It is possible that patient may be experiencing a viral illness that lead to his initial shortness of breath associated to his known asthma. Given that patient is not exhibiting any worsening clinical symptoms, will hold off initiating any antibiotics at this time. Of note, nursing stays at patient has had very limited mobility due to pain/discomfort from known neuropathy. SCDs ordered for VTE ppx. Chest CTA from 10/23 negative for PE. If patient's shortness of breath worsens or if he develops other symptoms such as chest tightness, could consider repeat chest CTA. Resident Activity Tracking Resident Involvement: Resident Care Provided Care Provided: Adult Hospital Medicine
--- NOTE | 2024-10-26 00:03 | XRay Report ---
Exam(s): XR CXR 1 VIEW EXAM: XR Chest, 1 View CLINICAL HISTORY: Shortness of breath. TECHNIQUE: Frontal view of the chest. COMPARISON: Portable chest single view 10/23/2024 FINDINGS: Lungs: No focal consolidation. The pulmonary vasculature demonstrates no significant radiographic abnormality. Pleural space: Unremarkable. No pneumothorax. No large pleural effusion. Heart: Unremarkable. No cardiomegaly. Mediastinum: No significant abnormality identified. The trachea is midline. Bones/joints: Unremarkable. No acute fracture. IMPRESSION: No focal consolidation or acute cardiopulmonary process identified. Electronically signed by: Zack Collins MD 10/26/24 00:02 AM
[2024-10-26 06:51] LABS: Hematocrit (blood only) 27.0 % (42.0-52.0); Hemoglobin 9.7 g/dl (14.0-18.0); Mean Corpuscular Hemoglobin 35.7 pg (25.0-34.0); Mean Corpuscular Volume 99.3 fL (80.0-100.0); Platelet Count 49 K/uL (130-400); RDW Standard Deviation 51.5 fL (36.4-46.3); Red Blood Count 2.72 M/uL (4.70-6.10); White Blood Count 5.09 K/ul (4.8-10.8)
[2024-10-26 07:18] LABS: Alanine Aminotransferase 21.0 U/L (7-52); Albumin Globulin Ratio 1.1 (0.9-2); Alkaline Phosphatase 101.0 U/L (34-104); Anion Gap 6.0 (3-11); Bilirubin,Total 2.9 mg/dl (0.2-1.0); Blood Urea Nitrogen 8.0 mg/dl (6-23); Calcium 8.1 mg/dl (8.6-10.3); Carbon Dioxide 25.0 mmol/L (21-32); Chloride 97.0 mmol/L (98-107); Creatinine Clr Calc Pharmacy 132.9 ml/min; Globulin 3.0 gm/dl (2.5-4.0); Glucose 110.0 mg/dl (70-99(Fasting)); Magnesium 1.3 mg/dl (1.7-2.4); Potassium 4.2 mmol/L (3.5-5.1); Sodium 128.0 mmol/L (136-145); Total Protein 6.2 gm/dl (6.0-8.3)
[2024-10-26 07:31] LABS: Immature Granulocytes # (auto) 0.03 K/uL (0.01-0.20); Immature Granulocytes % (auto) 0.6 %; RBC Morphology Unremarkable
[2024-10-26] MEDS: SODIUM CHLORIDE 0.9% 1,000 ML IV SCH (09:56)
--- NOTE | 2024-10-26 09:56 | Hospitalist Progress Note ---
Date of Service October 26, 2024 Assessment & Plan (1) Alcoholic intoxication: (2) At risk for alcohol withdrawal: (3) Alcoholic hepatitis: (4) Thrombocytopenia: (5) Homelessness: (6) Alcoholism /alcohol abuse: Plan The patient is a 44-year-old male with PMH alcohol abuse, alcohol intoxication, history of alcohol withdrawal thrombocytopenia, homelessness and alcoholic hepatitis. He presented to the emergency department with complaint of a 1 hour long episode of shortness of breath earlier in the day today. high d-dimer He underwent a CTA chest PE protocol which was negative, and venous Dopplers of bilateral extremities which was negative for DVT. Patient has no further symptoms of shortness of breath. He continues to be homeless. He continues to have significant alcohol ingestion, with current alcohol level 450.6. I have asked emergency department to give him a liter of normal saline to start with, and he will be admitted to the hospital for monitoring of alcohol withdrawal, and attempt to help him find a place to live. drug related exanthem holding gabapentin and tramadol noted FHx of PCN per the patient, he denied any drug allergy febrile episode check blood culture today [facility] urine culture and f/u on CK level Shortness of breath- suspect asthma exacerbation, duoneb provide Patient with elevated D-dimer of 1560 CTA chest PE protocol was negative Venous Doppler bilateral lower extremities negative for DVT Patient is mildly hypoxic, likely has symptoms secondary to mild respiratory depression from elevated alcohol level hypomagnesemia-s/p IV magnesium replacement Alcohol intoxication/alcohol abuse/at risk for alcohol withdrawal- Admit to monitored bed Previous admissions from 10/09-10/11/2024, and 10/12-10/13/2024 Alcohol level 450.6 Thiamine, folic Continue gabapentin 300 mg p.o. 3 times daily. He reports he cannot afford this medication in the outpatient setting AWSS protocol with IV Ativan Alcoholic hepatitis- Total bilirubin 2.8, AST 104, ALT 26, alkaline phosphatase 123 and INR 1.3 MELD sodium score 13 Thrombocytopenia- Platelets are 91, which is a bit higher than usual, but likely secondary to hemoconcentration and more highly elevated alcohol than usual Homelessness- Ask medical social worker to evaluate patient for possible available services Admission and Anticipated Discharge Date Admission Date: October 23, 2024 Subjective he was having fever; rash in his feet, and back holding gabapentin holding tramadol per the patient, his mother has PCN allergy f/u on CK level and blood culture Physical Exam Physical Exam: VITALS: Reviewed. WEIGHT/BMI reviewed. GEN: Healthy appearing, well-developed, NAD. no voice changed noted skin: + for rash on the feet, abdomen and back; no bullaoe noted; non-painful to palpation -Head: NC/AT; eye: no conjunctival injection -Mouth and throat: MMM. Normal gums, muc carmen, palate,. Good dentition. NECK: Supple, with no masses. CV: RRR, no m/r/g. LUNGS: CTAB, no w/r/c. ABD: Soft, NT/ND, NBS, no masses or organomegaly. : N/A MSK: No deformities, Normal gait. EXT: No clubbing, cyanosis, or edema. NEURO: AAox3 Results & Data Results & Data Vital Signs (Past 12 Hours) Vital Signs Temp Pulse Pulse Resp BP Pulse Ox O2 Del Method 10/26/24 07:55 38.1 C H 103 H 21 116/67 97 Room Air 10/26/24 04:02 36.9 C 111 H 16 137/55 L 96 Room Air 10/26/24 01:04 101 H 10/25/24 23:37 37.6 C H 99 H 17 115/66 92 Room Air 10/25/24 22:22 Room Air Laboratory Results Laboratory Results - last 72 hr 10/23/24 10/24/24 10/24/24 15:08 02:10 06:02 WBC 6.30 4.28 L RBC 2.73 L 2.49 L Hgb 9.5 L 8.8 L Hct 28.3 L 25.6 L MCV 103.7 H 102.8 H MCH 34.8 H 35.3 H MCHC 33.6 34.4 RDW Std Deviation 60.5 H 57.0 H RDW Coeff of Milagros 15.9 H 15.1 H Plt Count 91 L 64 L MPV 10.2 10.7 Immature Gran % (Auto) 0.3 0.2 Neut % (Auto) 60.1 62.7 Lymph % (Auto) 28.1 22.9 [place] % (Auto) 7.5 10.0 Eos % (Auto) 1.9 2.8 Baso % (Auto) 2.1 1.4 Neut # (Auto) 3.79 2.68 Lymph # (Auto) 1.77 0.98 L [place] # (Auto) 0.47 0.43 Eos # (Auto) 0.12 0.12 Baso # (Auto) 0.13 0.06 Immature Gran # (Auto) 0.02 0.01 RBC Morphology PT 13.4 H INR 1.3 H APTT 32 H PTT Ratio 1.2 D-Dimer 1560 H* Sodium 144 141 Potassium 3.7 3.5 Chloride 105 106 Carbon Dioxide 25 26 Anion Gap 14 H 9 BUN 15 11 Creatinine 0.67 0.54 L Est Cr Clr Drug Dosing 141.5 177.5 eGFR 116.61 124.46 BUN/Creatinine Ratio 22.4 H 20.4 H Glucose 85 96 Calcium 8.2 L 7.7 L Magnesium 1.0 L Total Bilirubin 2.8 H 2.1 H AST 104 H 82 H ALT 26 21 Alkaline Phosphatase 123 H 126 H Troponin I High Sens 3.6 Total Protein 7.1 5.9 L Albumin 3.6 3.0 L Globulin 3.5 2.9 Albumin/Globulin Ratio 1.0 1.0 Vitamin B12 1272 H Urine Opiates Screen Neg Ur Methadone, Qual Neg Urine Fentanyl Screen Neg Urine Barbiturates Neg Ur Phencyclidine (PCP) Neg U Amphetamin/Meth Scrn Neg MDMA (Ecstasy) Screen Neg U Benzodiazepines Scrn Pos H Ur Cocaine Metabolite Neg U Marijuana (THC) Screen Pos H Ethyl Alcohol mg/dL 450.6 H 10/25/24 10/26/24 04:14 05:50 WBC 4.76 L 5.09 RBC 2.90 L 2.72 L Hgb 10.3 L 9.7 L Hct 29.0 L 27.0 L MCV 100.0 99.3 MCH 35.5 H 35.7 H MCHC 35.5 35.9 RDW Std Deviation 52.4 H 51.5 H RDW Coeff of Milagros 14.3 14.2 Plt Count 65 L 49 L MPV 10.7 11.9 Immature Gran % (Auto) 0.4 0.6 Neut % (Auto) 69.2 81.7 Lymph % (Auto) 19.1 7.9 [place] % (Auto) 8.0 8.4 Eos % (Auto) 2.7 0.6 Baso % (Auto) 0.6 0.8 Neut # (Auto) 3.29 4.16 Lymph # (Auto) 0.91 L 0.40 L [place] # (Auto) 0.38 0.43 Eos # (Auto) 0.13 0.03 Baso # (Auto) 0.03 0.04 Immature Gran # (Auto) 0.02 0.03 RBC Morphology Unremarkable PT INR APTT PTT Ratio D-Dimer Sodium 135 L 128 L Potassium 3.8 4.2 Chloride 99 97 L Carbon Dioxide 27 25 Anion Gap 9 6 BUN 7 8 Creatinine 0.63 0.72 Est Cr Clr Drug Dosing 151.5 132.9 eGFR 118.80 114.11 BUN/Creatinine Ratio 11.1 11.1 Glucose 90 110 H Calcium 7.9 L 8.1 L Magnesium 1.1 L 1.3 L Total Bilirubin 3.3 H D 2.9 H AST 87 H 88 H ALT 22 21 Alkaline Phosphatase 114 H 101 Troponin I High Sens Total Protein 6.2 6.2 Albumin 3.1 L 3.2 L Globulin 3.1 3.0 Albumin/Globulin Ratio 1.0 1.1 Vitamin B12 Urine Opiates Screen Ur Methadone, Qual Urine Fentanyl Screen Urine Barbiturates Ur Phencyclidine (PCP) U Amphetamin/Meth Scrn MDMA (Ecstasy) Screen U Benzodiazepines Scrn Ur Cocaine Metabolite U Marijuana (THC) Screen Ethyl Alcohol mg/dL Medications Administered Current Inpatient Medications Acetaminophen (Acetaminophen 325 Mg Tab) 650 mg PO Q4H PRN PRN Reason: Pain or Fever Stop: 11/24/24 20:13 Last Admin: 10/26/24 08:03 Dose: 650 mg Albuterol (Albuterol Hfa 8 Gm Inhaler) 2 puffs INH QIDR PRN PRN Reason: Shortness Of Breath Or Wheezing Stop: 11/23/24 07:54 Last Admin: 10/24/24 09:24 Dose: 2 puffs Folic Acid (Folic Acid 1 Mg Tab) 1 mg PO QAM KENNY Stop: 11/23/24 08:59 Last Admin: 10/25/24 09:03 Dose: 1 mg Sodium Chloride (Nss) 1,000 mls @ 125 mls/hr IV .Q8H KENNY Stop: 10/29/24 08:14 Lorazepam (Lorazepam 2 Mg/1 Ml Vial) 1 mg IV UD PRN; Protocol PRN Reason: EtOH Withdrawal AWSS Score 6,7 Stop: 11/22/24 23:41 Lorazepam (Lorazepam 2 Mg/1 Ml Vial) 2 mg IV UD PRN; Protocol PRN Reason: EtOH Withdrawal AWSS Score 8,9 Stop: 11/22/24 23:41 Lorazepam (Lorazepam 2 Mg/1 Ml Vial) 3 mg IV ONCE PRN; Protocol PRN Reason: EtOH Withdrawal AWSS Score 10+ Ondansetron HCl (Ondansetron Inj 2 Mg/Ml 2 Ml Vial) 4 mg IV Q6H PRN PRN Reason: Nausea Stop: 11/22/24 23:41 Last Admin: 10/25/24 00:32 Dose: 4 mg Prednisone (Prednisone 50 Mg Tab) 50 mg PO DAILY [facility] Stop: 10/28/24 08:59 Thiamine HCl (Thiamine Hcl 100 Mg Tab) 100 mg PO QAM [facility] Stop: 11/23/24 08:59 Last Admin: 10/25/24 09:04 Dose: 100 mg Tramadol HCl (Tramadol Hcl 50 Mg Tablet) 50 mg PO Q4H PRN PRN Reason: Pain Stop: 11/25/24 14:38 Last Admin: 10/26/24 08:04 Dose: 50 mg Vitamin B Complex (Vitamin B Complex Tab) 1 tab PO QAM [facility] Stop: 11/23/24 12:14 Last Admin: 10/25/24 09:03 Dose: 1 tab PG Care Time/CCT Total # of Minutes Spent Total Time Spent with Patient: Total time spent is greater than 50% in coordination of care (as documented) at patient's floor/unit and/or counseling patient: Coding Level of Care Code 43624 SUB INP/OBS CARE 2/35MIN Diagnoses Alcoholic intoxication F10.920 Complication of substance-induced condition: uncomplicated At risk for alcohol withdrawal Z91.89 Alcoholic hepatitis K70.10 Ascites presence: unspecified Thrombocytopenia D69.6 Homelessness Z59.00 Alcoholism /alcohol abuse F10.20 Time Spent (min) 35 (1) Alcoholic intoxication Complication of substance-induced condition: uncomplicated Qualified Code(s): F10.920 - Alcohol use, unspecified with intoxication, uncomplicated (3) Alcoholic hepatitis Ascites presence: unspecified Qualified Code(s): K70.10 - Alcoholic hepatitis without ascites
[2024-10-26] MEDS: diphenhydrAMINE Capsule 25 MG CAP PO ONE (09:59)
[2024-10-26 15:14] LABS: A calco-baum cmplx NotReported Not Detected (NotDetected); Bact fragilis Not Reported Not Detected (NotDetected); Blood Culture Id Panel See PCR Comment (NotDetected); C auris Not Reported Not Detected (NotDetected); Calbicans Not Reported Not Detected (NotDetected); Candida glabrata Not Reported Not Detected (NotDetected); Candida krusei Not Reported Not Detected (NotDetected); Cneoformans/gatti Not Reported Not Detected (NotDetected); Cparapsilosis Not Reported Not Detected (NotDetected); Ctropicalis Not Reported Not Detected (NotDetected); E cloacae compx Not Reported Not Detected (NotDetected); Efaecalis Not Reported Not Detected (NotDetected); Efaecium Not Reported Not Detected (NotDetected); Enterobacterales Not Reported Not Detected (NotDetected); Escherichia coli Not Reported Not Detected (NotDetected); H influenzae Not Reported Not Detected (NotDetected); K aerogenes Not Reported Not Detected (NotDetected); Koxytoca Not Reported Not Detected (NotDetected); Kpneumoniae grp Not Reported Not Detected (NotDetected); Lmonocyt Not Reported DETECTED (NotDetected); N meningitidis Not Reported Not Detected (NotDetected); P aeruginosa Not Reported Not Detected (NotDetected); Proteus spp Not Reported Not Detected (NotDetected); Salmonella spp Not Reported Not Detected (NotDetected); Staph lugdunensis Not Reported Not Detected (NotDetected); Staph spp. Not Reported Not Detected (NotDetected); Staphaureus Not Reported Not Detected (NotDetected); Staphepi Not Reported Not Detected (NotDetected); Stenmaltophilia Not Reported Not Detected (NotDetected); Strep agal(GrpB) Not Reported Not Detected (NotDetected); Strep pneum Not Reported Not Detected (NotDetected); Strep pyog (GrpA) Not Reported Not Detected (NotDetected); Strep spp Not Reported Not Detected (NotDetected)
[2024-10-26] MEDS ORDERED: VANCOMYCIN CONSULT ACTIVE PRN (15:41)
[2024-10-26] MEDS ORDERED: SODIUM CHLORIDE 0.9% IV SCH (15:45)
[2024-10-26] MEDS ORDERED: AMPICILLIN IV SCH (15:45)
[2024-10-26] MEDS ORDERED: VANCOMYCIN HCL 1,000 MG in SODIUM CHLORIDE 0.9% 250 ML IV SCH (15:45)
[2024-10-26] MEDS ORDERED: Nursing to Pharmacy Communication SCH (16:15)
[2024-10-26] MEDS: cefTRIAXone SODIUM 2,000 MG/50 ML BAG IV SCH (16:21)
[2024-10-26] MEDS: AMPICILLIN 2,000 MG in SODIUM CHLOR 0.9% MINI-B 100 ML IV SCH (17:30)
[2024-10-26] MEDS: ACYCLOVIR SOD 700 MG in DEXTROSE 5% 100 ML IV SCH (18:20)
[2024-10-26] MEDS: VANCOMYCIN HCL 1,750 MG in SODIUM CHLORIDE 0.9% 500 ML IV ONE (18:26)
--- NOTE | 2024-10-26 20:18 | Pharmacy Report ---
Pharmacy PK ABX Note - Date of Service October 26, 2024 - Assessment and Plan Assessment 44 year old M receiving vancomycin, ceftriaxone, ampicillin and acyclovir for treatment of bacteremia. Blood cultures (+) gram (+) bacilli in 06/28. Blood biofire (+) Listeria monocytogenes. ID consulted. Renal function stable. Day # 1 of antimicrobial therapy. Plan Vancomycin * Loading dose: 1750 mg IV x 1 * Maintenance dose: 1500 mg IV every 12 hours * Regimen is predicted to achieve target AUC/SLAVA of 400-600 mg/L.hr * Will obtain a level 8/4 AM if vancomycin continued Pharmacy will continue to follow and will adjust dose/frequency as necessary. Thank you. Pharmacy has transitioned to AUC monitoring for vancomycin. AUC/SLAVA is the preferred PK/PD target and is associated with decreased risk of nephrotoxicity compared to traditional trough targets.
[2024-10-26] MEDS ORDERED: ACYCLOVIR 400 MG TAB PO SCH (21:00)
--- NOTE | 2024-10-27 00:34 | CT Scan Report ---
Exam(s): CT HEAD Without Contrast EXAM: CT Head Without Intravenous Contrast CLINICAL HISTORY: Reason for exam: headache episode, fever, r/o bacteremia. TECHNIQUE: Axial computed tomography images of the head/brain without intravenous contrast. Automated exposure control was utilized for the study. A dose lowering technique was utilized adhering to the principles of ALARA. COMPARISON: Prior head CT from September 12, 2024. FINDINGS: Brain: Unremarkable. No hemorrhage. No significant white matter disease. No edema. Ventricles: Unremarkable. No ventriculomegaly. Bones/joints: Unremarkable. No acute fracture. Soft tissues: Unremarkable. Sinuses: Unremarkable as visualized. No acute sinusitis. Mastoid air cells: Unremarkable as visualized. No mastoid effusion. IMPRESSION: No evidence of acute intracranial pathology. Electronically signed by: Gretchen Potter MD 10/27/24 00:33 AM
[2024-10-27] MEDS: VANCOMYCIN HCL 1,500 MG in SODIUM CHLORIDE 0.9% 500 ML IV SCH (00:36)
[2024-10-27 08:12] LABS: Hematocrit (blood only) 27.1 % (42.0-52.0); Hemoglobin 9.4 g/dl (14.0-18.0); Mean Corpuscular Hemoglobin 35.3 pg (25.0-34.0); Mean Corpuscular Volume 101.9 fL (80.0-100.0); Platelet Count 53 K/uL (130-400); RDW Standard Deviation 50.8 fL (36.4-46.3); Red Blood Count 2.66 M/uL (4.70-6.10); White Blood Count 6.14 K/ul (4.8-10.8)
[2024-10-27 08:17] LABS: Hemoglobin A1C 4.1 % (4.5-5.6)
[2024-10-27 09:15] LABS: Alanine Aminotransferase 19.0 U/L (7-52); Albumin Globulin Ratio 1.1 (0.9-2); Alkaline Phosphatase 103.0 U/L (34-104); Anion Gap 8.0 (3-11); Bilirubin,Total 2.3 mg/dl (0.2-1.0); Blood Urea Nitrogen 7.0 mg/dl (6-23); Calcium 8.3 mg/dl (8.6-10.3); Carbon Dioxide 24.0 mmol/L (21-32); Chloride 106.0 mmol/L (98-107); Creatinine Clr Calc Pharmacy 170.9 ml/min; Globulin 3.0 gm/dl (2.5-4.0); Glucose 108.0 mg/dl (70-99(Fasting)); Magnesium 1.2 mg/dl (1.7-2.4); Potassium 3.4 mmol/L (3.5-5.1); Sodium 138.0 mmol/L (136-145); Total Protein 6.2 gm/dl (6.0-8.3)
[2024-10-27 09:42] LABS: 7-Aminoclonaz, Confirm NEGATIVE ng/mL (<25); Hydro-Alp Ur, GC/MS NEGATIVE ng/mL (<25); Hydroxyethylflurazepam, Conf NEGATIVE ng/mL (<50); Hydroxymidazolam Ur, GC/MS NEGATIVE ng/mL (<50); Lorazepam, Ur GC/MS NEGATIVE ng/mL (<50); Marijuana Quant, GCMS Urine 42 ng/mL (<5); Nordiazepam, Confirm NEGATIVE ng/mL (<50); Oxazepam Ur, GC/MS NEGATIVE ng/mL (<50); Temazepam, Confirm NEGATIVE ng/mL (<50)
--- NOTE | 2024-10-27 10:44 | XCELERA ---
[id number]
[2024-10-27] MEDS: MAGNESIUM SULFATE / D5W 1 GM/100 ML BAG IV SCH (12:53)
--- NOTE | 2024-10-27 14:55 | Hospitalist Progress Note ---
Date of Service October 27, 2024 Assessment & Plan (1) Bacteremia: (2) Listeria infection: (3) Skin rash: (4) Pain of left great toe: Plan Assessment & Plan (1) Alcoholic intoxication: (2) listeria bacteremia 3. diffuse skin outbreak in the foot and lower extremity (3) Alcoholic hepatitis, (4) Thrombocytopenia: (5) Homelessness: (6) hypomagnesiumia Plan The patient is a 44-year-old male with H alcohol abuse, history of alcohol withdrawal thrombocytopenia, homelessness and alcoholic hepatitis. He presented to the ED with a 1 hour long episode of shortness of breath earlier in the day today. high d-dimer He underwent a CTA chest PE negative, and venous Dopplers of bilateral extremities which was negative for DVT. . He continues to be homeless. he's was found to has hypomagnesemia, thrombocytopenia, and hyponatremia he's was completing of big toe pain and started on gabapentin and tramadol. but then developed rash outbreak in his foot. his gabapentin and tramadol held and started benadryl and prednisone in addition, on 10/25/2024 11pm, he's developed fever episode and blood culture positive, listeria. he's was started on ampicillin, ceftriaxone, vancomycin and IV acyclovir, his echocardiogram negative for vegetation, denied hx of IV drug use overall plan dermatology consulted about worsening rash on the foot, abdomen and back continue treatment for listeria bacteremia, repeat blood culture to ensure clearance ID was notified on 10/26/2024 5pm. monitor for alcohol withdrawal. case management to eval for recurrent admission and homeless bacteremia, listeria spike fever 38.4 on 10/25 11pm positive for listeria on ampicillin, ceftriaxone, vancomycin and acyclovir ID farm service consultant notified. drug related exanthem holding gabapentin and tramadol noted FHx of PCN per the patient, he denied any drug allergy Shortness of breath- suspect asthma exacerbation, duoneb provide elevated D-dimer of 1560 CTA chest PE negative, Venous Doppler LE negative for DVT Patient is mildly hypoxic, likely has symptoms secondary to mild respiratory depression from elevated alcohol level hypomagnesemia-s/p IV magnesium replacement hyponatremia, s/p IV fluid, resolved; fluid dc on 10/27/2024 morning Alcohol intoxication/alcohol abuse/at risk for alcohol withdrawal- Previous admissions from 10/09-10/11, and 7/ Alcohol level 450.6 Thiamine, folic He reports he cannot afford this medication in the outpatient setting AWSS protocol with IV Ativan no sign of withdrawal Alcoholic hepatitis- Total bilirubin 2.8, AST 104, ALT 26, alkaline phosphatase 123 and INR 1.3 MELD sodium score 13 Thrombocytopenia- Platelets are 91, which is a bit higher than usual, but likely secondary to hemoconcentration Homelessness- Ask rn social work to evaluate patient for possible available services Admission and Anticipated Discharge Date Admission Date: October 23, 2024 Subjective he's was found to has bacteremia with listeria yesterday on ampicillin, vancomycin, ceftriaxone and IV acyclovir he's has ongoing rash on the foot, lower extremity, abdomen no conjunctival involvement, no tongue involvement his gabapentin was dc, his tramadol was dc. he's adamantly declined family update. Physical Exam Physical Exam: VITALS: Reviewed. WEIGHT/BMI reviewed. GEN: Healthy appearing, well-developed, NAD. -Head: NC/AT; neck: non-tender to palpation; normal ROM. -Mouth and throat: MMM. Normal gums, muc carmen, palate,. Good dentition. NECK: Supple, with no masses. CV: RRR, no m/r/g. LUNGS: CTAB, no w/r/c. no wheezing; on room air ABD: Soft, NT/ND, NBS, no masses or organomegaly. SKIN: rash on the foot; right inner thigh MSK: No deformities, Normal gait. NEURO: AAox3 Results & Data Results & Data Vital Signs (Past 12 Hours) Vital Signs Temp Pulse Pulse Resp BP Pulse Ox O2 Del Method 10/27/24 12:07 36.9 C 96 H 20 119/71 96 Room Air 10/27/24 08:00 Room Air 10/27/24 07:28 36.9 C 96 H 20 131/80 98 Room Air 10/27/24 07:00 98 H 10/27/24 04:23 36.9 C 98 H 18 119/58 L 98 Room Air Laboratory Results Laboratory Results - last 72 hr 10/24/24 10/24/24 10/25/24 02:10 06:02 04:14 WBC 4.76 L RBC 2.90 L Hgb 10.3 L Hct 29.0 L MCV 100.0 MCH 35.5 H MCHC 35.5 RDW Std Deviation 52.4 H RDW Coeff of Milagros 14.3 Plt Count 65 L MPV 10.7 Immature Gran % (Auto) 0.4 Neut % (Auto) 69.2 Lymph % (Auto) 19.1 [place] % (Auto) 8.0 Eos % (Auto) 2.7 Baso % (Auto) 0.6 Neut # (Auto) 3.29 Lymph # (Auto) 0.91 L [place] # (Auto) 0.38 Eos # (Auto) 0.13 Baso # (Auto) 0.03 Immature Gran # (Auto) 0.02 RBC Morphology Sodium 135 L Potassium 3.8 Chloride 99 Carbon Dioxide 27 Anion Gap 9 BUN 7 Creatinine 0.63 Est Cr Clr Drug Dosing 151.5 eGFR 118.80 BUN/Creatinine Ratio 11.1 Glucose 90 Estimat Average Glucose Hemoglobin A1c Calcium 7.9 L Magnesium 1.1 L Total Bilirubin 3.3 H D AST 87 H ALT 22 Alkaline Phosphatase 114 H Total Protein 6.2 Albumin 3.1 L Globulin 3.1 Albumin/Globulin Ratio 1.0 Vitamin B12 1272 H U OH-Alprazolam Confrm NEGATIVE 7-Amino Clonazepam NEGATIVE Ur Nordiazepam Confirm NEGATIVE U OH-ethylflurazepam NEGATIVE U Lorazepam Cnf GC/MS NEGATIVE U Oxazepam Confm GC/MS NEGATIVE Ur Temazepam Confirm NEGATIVE U OH-Triazolam Confirm NEGATIVE U OH-Midazolam Confirm NEGATIVE U Marijuana THC Carboxy 42 H Drug Screen Comment SEE NOTE HIV 1&2 Ab/P24 Ag 4thGn List. monocytogenes PCR Bld Cult ID Panel PCR 10/25/24 10/26/24 10/27/24 21:19 05:50 07:41 WBC 5.09 6.14 RBC 2.72 L 2.66 L Hgb 9.7 L 9.4 L Hct 27.0 L 27.1 L MCV 99.3 101.9 H MCH 35.7 H 35.3 H MCHC 35.9 34.7 RDW Std Deviation 51.5 H 50.8 H RDW Coeff of Milagros 14.2 13.9 Plt Count 49 L 53 L MPV 11.9 11.3 Immature Gran % (Auto) 0.6 Neut % (Auto) 81.7 Lymph % (Auto) 7.9 [place] % (Auto) 8.4 Eos % (Auto) 0.6 Baso % (Auto) 0.8 Neut # (Auto) 4.16 Lymph # (Auto) 0.40 L [place] # (Auto) 0.43 Eos # (Auto) 0.03 Baso # (Auto) 0.04 Immature Gran # (Auto) 0.03 RBC Morphology Unremarkable Sodium 128 L 138 D Potassium 4.2 3.4 L Chloride 97 L 106 Carbon Dioxide 25 24 Anion Gap 6 8 BUN 8 7 Creatinine 0.72 0.56 L Est Cr Clr Drug Dosing 132.9 170.9 eGFR 114.11 123.10 BUN/Creatinine Ratio 11.1 12.5 Glucose 110 H 108 H Estimat Average Glucose 71 Hemoglobin A1c 4.1 L Calcium 8.1 L 8.3 L Magnesium 1.3 L 1.2 L Total Bilirubin 2.9 H 2.3 H AST 88 H 64 H ALT 21 19 Alkaline Phosphatase 101 103 Total Protein 6.2 6.2 Albumin 3.2 L 3.2 L Globulin 3.0 3.0 Albumin/Globulin Ratio 1.1 1.1 Vitamin B12 U OH-Alprazolam Confrm 7-Amino Clonazepam Ur Nordiazepam Confirm U OH-ethylflurazepam U Lorazepam Cnf GC/MS U Oxazepam Confm GC/MS Ur Temazepam Confirm U OH-Triazolam Confirm U OH-Midazolam Confirm U Marijuana THC Carboxy Drug Screen Comment HIV 1&2 Ab/P24 Ag 4thGn Negative List. monocytogenes PCR DETECTED A Bld Cult ID Panel PCR See PCR Comment PG Care Time/CCT Total # of Minutes Spent Total Time Spent with Patient: Total time spent is greater than 50% in coordination of care (as documented) at patient's floor/unit and/or counseling patient: Coding Level of Care Code 87438 SUB INP/OBS CARE 2/35MIN Diagnoses Bacteremia R78.81 Listeria infection A32.9 Skin rash R21 Pain of left great toe M79.675 Time Spent (min) 35
[2024-10-27] MEDS: MELATONIN 3 MG TAB PO SCH (20:21)
--- NOTE | 2024-10-28 09:35 | Ultrasound Report ---
RENAL ULTRASOUND CLINICAL HISTORY: hematuria, r/o bladder mass and renal mass COMPARISON STUDY: 02/23/2012 TECHNIQUE: Sonography of the kidneys and the urinary bladder was performed. FINDINGS: The right kidney measures 10.3 cm in length. The left kidney measures 10.3 cm in length. Th ere is no hydronephrosis. No focal renal masses are visualized. There is no perinephric fluid. There is mild bladder wall thickening. There is a nonspecific finding but given history of hematuria cystoscopy might be considered in follow-up. IMPRESSION: 1. No renal masses identified. No evidence of hydronephrosis 2. Nonspecific bladder wall thickening. Given the history of hematuria, cystoscopy might be considere d in follow-up. ACT 112: Negative or not required by law. Electronically signed by: Evelio Arriaga M.D. 10/28/2024 9:32 AM
[2024-10-28 09:47] LABS: Hematocrit (blood only) 29.9 % (42.0-52.0); Hemoglobin 10.4 g/dl (14.0-18.0); Mean Corpuscular Hemoglobin 35.1 pg (25.0-34.0); Mean Corpuscular Volume 101.0 fL (80.0-100.0); Platelet Count 68 K/uL (130-400); RDW Standard Deviation 51.8 fL (36.4-46.3); Red Blood Count 2.96 M/uL (4.70-6.10); White Blood Count 7.46 K/ul (4.8-10.8)
[2024-10-28 09:56] LABS: Alanine Aminotransferase 23.0 U/L (7-52); Albumin Globulin Ratio 1.1 (0.9-2); Alkaline Phosphatase 102.0 U/L (34-104); Anion Gap 10.0 (3-11); Bilirubin,Total 2.8 mg/dl (0.2-1.0); Blood Urea Nitrogen 13.0 mg/dl (6-23); Calcium 8.8 mg/dl (8.6-10.3); Carbon Dioxide 25.0 mmol/L (21-32); Chloride 102.0 mmol/L (98-107); Creatinine Clr Calc Pharmacy 129.3 ml/min; Globulin 3.3 gm/dl (2.5-4.0); Glucose 106.0 mg/dl (70-99(Fasting)); Magnesium 1.5 mg/dl (1.7-2.4); Potassium 3.2 mmol/L (3.5-5.1); Sodium 137.0 mmol/L (136-145); Total Protein 6.9 gm/dl (6.0-8.3)
--- NOTE | 2024-10-28 10:18 | Pharmacy Report ---
Pharmacy PK ABX Note - Date of Service October 28, 2024 - Assessment and Plan Assessment 10/28 * Patient on vancomycin/ampicillin only now. ID consulted. Random vancomycin this AM was 17 mcg/ml - current dosing estimated to achieve AUC/SLAVA >600 therefore will scale back and decrease dosing to 1250 mg iv q 12 hours. Blood cultures with listeria - sensitive to ampicillin. Per provider notes concerns for rash on lower extremity, abdomen. Fevers improving now, afebrile x 24 hours 10/27: * 44 year old M receiving vancomycin, ceftriaxone, ampicillin and acyclovir for treatment of bacteremia. Blood cultures (+) gram (+) bacilli in 06/28. Blood biofire (+) Listeria monocytogenes. ID consulted. Renal function stable. * Day # 1 of antimicrobial therapy. Plan Vancomycin * Decrease to 1250 mg iv q 12 hours Pharmacy will continue to follow and will adjust dose/frequency as necessary. Thank you. Pharmacy has transitioned to AUC monitoring for vancomycin. AUC/SLAVA is the preferred PK/PD target and is associated with decreased risk of nephrotoxicity compared to traditional trough targets.
--- NOTE | 2024-10-28 10:33 | Hospitalist Progress Note ---
Date of Service October 28, 2024 Assessment & Plan (1) Bacteremia: Plan: -blood cultures + for listeria -on ampicillin, ceftriaxone, vancomycin and acyclovir -echo negative for vegetation -ID consulted (2) Skin rash: Plan: -possibly drug related -tramadol and gabapentin held -dermatology consulted (3) ETOH abuse: Plan: CIWA protocol ativan PRN no signs of withdrawal Plan Assessment & Plan (1) Alcoholic intoxication: (2) listeria bacteremia 3. diffuse skin outbreak in the foot and lower extremity (3) Alcoholic hepatitis, (4) Thrombocytopenia: (5) Homelessness: (6) hypomagnesiumia Plan The patient is a 44-year-old male with PMH alcohol abuse, history of alcohol withdrawal thrombocytopenia, homelessness and alcoholic hepatitis. He presented to the ED with a 1 hour long episode of shortness of breath earlier in the day today. high d-dimer He underwent a CTA chest PE negative, and venous Dopplers of bilateral extremities which was negative for DVT. . He continues to be homeless. he's was found to has hypomagnesemia, thrombocytopenia, and hyponatremia he's was completing of big toe pain and started on gabapentin and tramadol. but then developed rash outbreak in his foot. his gabapentin and tramadol held and started benadryl and prednisone in addition, on 10/25/2024 11pm, he's developed fever episode and blood culture positive, listeria. he's was started on ampicillin, ceftriaxone, vancomycin and IV acyclovir, his echocardiogram negative for vegetation, denied hx of IV drug use Homelessness- Ask social service coordinator to evaluate patient for possible available services Admission and Anticipated Discharge Date Admission Date: October 23, 2024 Subjective No events for overnight, pt resting in bed. Review of Systems Review of Systems: CONST: Negative for fever, body aches and chills. HENT: Negative for neck pain/stiffness, headache, congestion, sore throat, swelling. EYES: Negative for discharge/pain or vision changes. RESP: Negative for cough/hemoptysis and shortness of breath. CV: Negative chest pain, difficulty breathing, palpitations. ABD: Negative pain, nausea, vomiting. : Negative increase frequency, dysuria, blood in urine or stool. MUSC: Negative for muscle aches, edema. SKIN: Negative rash, lesions/sores. NEURO: Negative headache, dizziness, weakness. Physical Exam Physical Exam: GENERAL APPEARANCE NAD, activity normal for age, well developed/ well nourished, no cyanosis, pallor, or diaphoresis. EYES lids/conjunctiva normal. EARS/NOSE/THROAT Mucous membranes moist, nares normal, lips/teeth normal uvula midline without oral pharyngeal erythema, exudate or swelling TMs normal bilaterally. No lymphangitis/lymphedema. HEAD/NECK normocephalic atraumatic, no facial trauma, neck is supple. RESPIRATORY respiratory effort normal, speaks in full sentences, no tripod position, no accessory muscle use. Lungs clear to auscultation without rhonchi, wheezes, rales CARDIAC Regular rate and rhythm, no edema. ABDOMINAL Soft, ND/NT. No evidence of fluid wave. No pulsatile masses on exam, rebound tenderness, Tsang sign or pain over Mcburney's point. MUSCLES/EXTREMITIES No abnormal range of motion, no swelling. SKIN B/L lower ext petechial rash NEUROLOGICAL Speech is clear and appropriate. Normal level of consciousness. Gait and coordination are normal. 5/5 strength in all extremities. PSYCH Normal mood and affect. Judgement/competence is appropriate Results & Data Results & Data Vital Signs (Past 12 Hours) Vital Signs Temp Pulse Resp BP BP Pulse Ox O2 Del Method 10/28/24 07:24 36.6 C 85 20 100/65 99 Room Air 10/28/24 04:09 36.6 C 80 17 116/67 98 Room Air 10/28/24 00:05 36.6 C 83 17 130/81 98 Room Air PG Care Time/CCT Total # of Minutes Spent Total Time Spent with Patient: Total time spent is greater than 50% in coordination of care (as documented) at patient's floor/unit and/or counseling patient: Coding Level of Care Code 83749 SUB INP/OBS CARE 2/35MIN Diagnoses Bacteremia R78.81 Skin rash R21 ETOH abuse F10.10
[2024-10-28] MEDS: VANCOMYCIN HCL 1,250 MG in SODIUM CHLORIDE 0.9% 250 ML IV SCH (11:32)
[2024-10-28] MEDS: MAGNESIUM SULFATE / D5W 1 GM/100 ML BAG IV SCH (15:27)
[2024-10-28] MEDS: POTASSIUM CHLORIDE / WTR 10 MEQ/100 ML PLCT IV SCH (15:35)
[2024-10-28] MEDS ORDERED: GENTAMICIN CONSULT ACTIVE PRN (16:32)
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
[2024-10-28] MEDS: GENTAMICIN SULFATE IV SCH (17:51)
[2024-10-28] MEDS: DEXTROSE 5% IV SCH (17:51)
[2024-10-28] MEDS: SULFAMETHOXAZOLE/TRIMETHOPRIM DS 800/160MG TAB PO SCH (20:45)
[2024-10-29 10:34] LABS: Hematocrit (blood only) 30.5 % (42.0-52.0); Hemoglobin 10.6 g/dl (14.0-18.0); Immature Granulocytes # (auto) 0.02 K/uL (0.01-0.20); Immature Granulocytes % (auto) 0.4 %; Mean Corpuscular Hemoglobin 34.9 pg (25.0-34.0); Mean Corpuscular Volume 100.3 fL (80.0-100.0); Platelet Count 74 K/uL (130-400); RDW Standard Deviation 52.5 fL (36.4-46.3); Red Blood Count 3.04 M/uL (4.70-6.10); White Blood Count 4.65 K/ul (4.8-10.8)
[2024-10-29 10:46] LABS: Alanine Aminotransferase 26.0 U/L (7-52); Albumin Globulin Ratio 1.1 (0.9-2); Alkaline Phosphatase 97.0 U/L (34-104); Anion Gap 10.0 (3-11); Bilirubin,Total 3.0 mg/dl (0.2-1.0); Blood Urea Nitrogen 13.0 mg/dl (6-23); Calcium 8.9 mg/dl (8.6-10.3); Carbon Dioxide 24.0 mmol/L (21-32); Chloride 103.0 mmol/L (98-107); Creatinine Clr Calc Pharmacy 132.9 ml/min; Globulin 3.2 gm/dl (2.5-4.0); Glucose 104.0 mg/dl (70-99(Fasting)); Magnesium 1.4 mg/dl (1.7-2.4); Potassium 3.6 mmol/L (3.5-5.1); Sodium 137.0 mmol/L (136-145); Total Protein 6.7 gm/dl (6.0-8.3)
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
--- NOTE | 2024-10-29 12:02 | Hospitalist Progress Note ---
Date of Service October 29, 2024 Assessment & Plan (1) Bacteremia: Plan: -blood cultures + for listeria -echo negative for vegetation -ID consult appreciated -abx changed to TMP/SMX DS PO TID -plan to continue to for 2-week course (2) Skin rash: Plan: -possibly drug related -tramadol and gabapentin held -dermatology consulted (3) ETOH abuse: Plan: CIWA protocol ativan PRN no signs of withdrawal Plan Assessment & Plan (1) Alcoholic intoxication: (2) listeria bacteremia 3. diffuse skin outbreak in the foot and lower extremity (3) Alcoholic hepatitis, (4) Thrombocytopenia: (5) Homelessness: (6) hypomagnesiumia Plan The patient is a 44-year-old male with PMH alcohol abuse, history of alcohol withdrawal thrombocytopenia, homelessness and alcoholic hepatitis. He presented to the ED with a 1 hour long episode of shortness of breath earlier in the day today. high d-dimer He underwent a CTA chest PE negative, and venous Dopplers of bilateral extremities which was negative for DVT. . He continues to be homeless. he's was found to has hypomagnesemia, thrombocytopenia, and hyponatremia he's was completing of big toe pain and started on gabapentin and tramadol. but then developed rash outbreak in his foot. his gabapentin and tramadol held and started benadryl and prednisone in addition, on 10/25/2024 11pm, he's developed fever episode and blood culture positive, listeria. he's was started on ampicillin, ceftriaxone, vancomycin and IV acyclovir, his echocardiogram negative for vegetation, denied hx of IV drug use Homelessness- Ask social welfare administrator to evaluate patient for possible available services Plan for d/c 10/30 Admission and Anticipated Discharge Date Admission Date: October 23, 2024 Subjective No events overnight. Pt resting in bed. Review of Systems Review of Systems: CONST: Negative for fever, body aches and chills. HENT: Negative for neck pain/stiffness, headache, congestion, sore throat, swelling. EYES: Negative for discharge/pain or vision changes. RESP: Negative for cough/hemoptysis and shortness of breath. CV: Negative chest pain, difficulty breathing, palpitations. ABD: Negative pain, nausea, vomiting. : Negative increase frequency, dysuria, blood in urine or stool. MUSC: Negative for muscle aches, edema. SKIN: Negative rash, lesions/sores. NEURO: Negative headache, dizziness, weakness. Physical Exam Physical Exam: GENERAL APPEARANCE NAD, activity normal for age, well developed/ well nourished, no cyanosis, pallor, or diaphoresis. EYES lids/conjunctiva normal. EARS/NOSE/THROAT Mucous membranes moist, nares normal, lips/teeth normal uvula midline without oral pharyngeal erythema, exudate or swelling TMs normal bilaterally. No lymphangitis/lymphedema. HEAD/NECK normocephalic atraumatic, no facial trauma, neck is supple. RESPIRATORY respiratory effort normal, speaks in full sentences, no tripod position, no accessory muscle use. Lungs clear to auscultation without rhonchi, wheezes, rales CARDIAC Regular rate and rhythm, no edema. ABDOMINAL Soft, ND/NT. No evidence of fluid wave. No pulsatile masses on exam, rebound tenderness, Tsang sign or pain over Mcburney's point. MUSCLES/EXTREMITIES No abnormal range of motion, no swelling. SKIN B/L lower ext petechial rash NEUROLOGICAL Speech is clear and appropriate. Normal level of consciousness. Gait and coordination are normal. 5/5 strength in all extremities. PSYCH Normal mood and affect. Judgement/competence is appropriate Results & Data Results & Data Vital Signs (Past 12 Hours) Vital Signs Temp Pulse Pulse BP Pulse Ox O2 Del Method 10/29/24 09:00 75 10/29/24 07:32 36.3 C L 85 109/65 98 Room Air PG Care Time/CCT Total # of Minutes Spent Total Time Spent with Patient: Total time spent is greater than 50% in coordination of care (as documented) at patient's floor/unit and/or counseling patient: Coding Level of Care Code 55950 SUB INP/OBS CARE 2/35MIN Diagnoses Bacteremia R78.81 Skin rash R21 ETOH abuse F10.10
[2024-10-30 00:56] LABS: CK-BB None Detected (None Detected); CK-MB 0 % (<5); CK-MM 95 % (95-100)
[2024-10-30 06:48] LABS: Alanine Aminotransferase 29.0 U/L (7-52); Albumin Globulin Ratio 1.0 (0.9-2); Alkaline Phosphatase 109.0 U/L (34-104); Anion Gap 11.0 (3-11); Bilirubin,Total 2.9 mg/dl (0.2-1.0); Blood Urea Nitrogen 13.0 mg/dl (6-23); Calcium 9.0 mg/dl (8.6-10.3); Carbon Dioxide 23.0 mmol/L (21-32); Chloride 101.0 mmol/L (98-107); Creatinine Clr Calc Pharmacy 107.2 ml/min; Globulin 3.5 gm/dl (2.5-4.0); Glucose 91.0 mg/dl (70-99(Fasting)); Magnesium 1.3 mg/dl (1.7-2.4); Potassium 3.6 mmol/L (3.5-5.1); Sodium 135.0 mmol/L (136-145); Total Protein 7.1 gm/dl (6.0-8.3)
--- NOTE | 2024-10-30 11:28 | Hospitalist Progress Note ---
Date of Service October 30, 2024 Assessment & Plan (1) Bacteremia: Plan: -blood cultures + for listeria -echo negative for vegetation -ID consult appreciated -abx changed to TMP/SMX DS PO TID -plan to continue to for 2-week course (2) Skin rash: Plan: -possibly drug related -tramadol and gabapentin held -dermatology consulted (3) ETOH abuse: Plan: CIWA protocol ativan PRN no signs of withdrawal (4) Gross hematuria: Plan: -UA -urology consulted Plan Assessment & Plan (1) Alcoholic intoxication: (2) listeria bacteremia 3. diffuse skin outbreak in the foot and lower extremity (3) Alcoholic hepatitis, (4) Thrombocytopenia: (5) Homelessness: (6) hypomagnesiumia Plan The patient is a 44-year-old male with PMH alcohol abuse, history of alcohol withdrawal thrombocytopenia, homelessness and alcoholic hepatitis. He presented to the ED with a 1 hour long episode of shortness of breath earlier in the day today. high d-dimer He underwent a CTA chest PE negative, and venous Dopplers of bilateral extremities which was negative for DVT. . He continues to be homeless. he's was found to has hypomagnesemia, thrombocytopenia, and hyponatremia he's was completing of big toe pain and started on gabapentin and tramadol. but then developed rash outbreak in his foot. his gabapentin and tramadol held and started benadryl and prednisone in addition, on 10/25/2024 11pm, he's developed fever episode and blood culture positive, listeria. he's was started on ampicillin, ceftriaxone, vancomycin and IV acyclovir, his echocardiogram negative for vegetation, denied hx of IV drug use Homelessness- Ask social science professor to evaluate patient for possible available services Admission and Anticipated Discharge Date Admission Date: October 23, 2024 Subjective No events overnight. Pt resting in bed. Review of Systems Review of Systems: CONST: Negative for fever, body aches and chills. HENT: Negative for neck pain/stiffness, headache, congestion, sore throat, swelling. EYES: Negative for discharge/pain or vision changes. RESP: Negative for cough/hemoptysis and shortness of breath. CV: Negative chest pain, difficulty breathing, palpitations. ABD: Negative pain, nausea, vomiting. : Negative increase frequency, dysuria, blood in urine or stool. MUSC: Negative for muscle aches, edema. SKIN: Negative rash, lesions/sores. NEURO: Negative headache, dizziness, weakness. Physical Exam Physical Exam: GENERAL APPEARANCE NAD, activity normal for age, well developed/ well nourished, no cyanosis, pallor, or diaphoresis. EYES lids/conjunctiva normal. EARS/NOSE/THROAT Mucous membranes moist, nares normal, lips/teeth normal uvula midline without oral pharyngeal erythema, exudate or swelling TMs normal bilaterally. No lymphangitis/lymphedema. HEAD/NECK normocephalic atraumatic, no facial trauma, neck is supple. RESPIRATORY respiratory effort normal, speaks in full sentences, no tripod position, no accessory muscle use. Lungs clear to auscultation without rhonchi, wheezes, rales CARDIAC Regular rate and rhythm, no edema. ABDOMINAL Soft, ND/NT. No evidence of fluid wave. No pulsatile masses on exam, rebound tenderness, Tsang sign or pain over Mcburney's point. MUSCLES/EXTREMITIES No abnormal range of motion, no swelling. SKIN B/L lower ext petechial rash NEUROLOGICAL Speech is clear and appropriate. Normal level of consciousness. Gait and coordination are normal. 5/5 strength in all extremities. PSYCH Normal mood and affect. Judgement/competence is appropriate Results & Data Results & Data Vital Signs (Past 12 Hours) Vital Signs Temp Pulse Pulse Resp BP Pulse Ox O2 Del Method 10/30/24 09:45 Room Air 10/30/24 08:29 88 10/30/24 08:00 36.4 C L 77 16 109/68 99 Room Air PG Care Time/CCT Total # of Minutes Spent Total Time Spent with Patient: Total time spent is greater than 50% in coordination of care (as documented) at patient's floor/unit and/or counseling patient: Coding Level of Care Code 40408 SUB INP/OBS CARE 2/35MIN Diagnoses Bacteremia R78.81 Skin rash R21 ETOH abuse F10.10 Gross hematuria R31.0
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
--- NOTE | 2024-10-30 16:09 | CT Scan Report ---
ABDOMEN AND PELVIS CT WITHOUT CONTRAST CT DOSE: 517.68 mGy.cm HISTORY: Acute hematuria hematuria TECHNIQUE: Multiaxial CT images of the abdomen and pelvis were performed without contrast. A dose lo wering technique was utilized adhering to the principles of ALARA. COMPARISON STUDY: Renal ultrasound 10/28/2024, CTA chest 10/23/2024, CT abdomen and pelvis 09/12/2024, MR abdomen 10/10/2024 FINDINGS: Clear lung bases. No pneumatosis or pneumoperitoneum. 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 The unenhan giovanny pancreas and adrenal glands are unremarkable. Contracted gallbladder with cholelithiasis and mild wall thickening. Hepatic steatosis with marginal nodularity redemonstrated compatible cirrhosis. Rec analization umbilical vein with upper abdominal varicosities. Mild nonspecific bilateral perinephric stranding. No urolith or hydronephrosis. Urinary bladder wall thickening with partial distention. Prostatomegaly. Atherosclerosis of the aorta without aneurysm. Arias bcentimeter retroperitoneal lymph nodes. No bowel obstruction or bowel wall thickening. Colonic diver ticulosis without acute diverticulitis. Moderate colonic fecal retention. Normal appendix. No acute f racture. IMPRESSION: 1. No renal or ureteral calculi or hydronephrosis. 2. Partial distention of the urinary bladder with mild nonspecific wall thickening again noted. 3. Cirrhotic liver with stigmata of portal venous hypertension. 4. Moderate colonic fecal retention. ACT 112: Negative or not required by law. The above report was generated using voice recognition software. It may contain grammatical, syntax o r spelling errors. Electronically signed by: Rui Tavares M.D. 10/30/2024 4:07 PM
[2024-10-30 17:02] LABS: Anti Nuclear Antibody Screen NEGATIVE (NEGATIVE)
[2024-10-30 18:35] LABS: Appearance Urine Clear (Clear); Bacteria Urine Automated None Seen (None Seen); Cast Urine Automated 0-2 /lpf (0-2); Epithelial Cell Urine Auto 0-2 /hpf (0-2); Glucose Urine UA Negative (Negative)
--- NOTE | 2024-10-31 09:31 | Hospitalist Progress Note ---
Date of Service October 31, 2024 Assessment & Plan (1) Bacteremia: Plan: -blood cultures + for listeria -echo negative for vegetation -ID consult appreciated -abx changed to TMP/SMX DS PO TID -plan to continue to for 2-week course (2) Skin rash: Plan: -possibly drug related -tramadol and gabapentin held -dermatology consulted (3) ETOH abuse: Plan: CIWA protocol ativan PRN no signs of withdrawal (4) Gross hematuria: Plan: -UA -urology consult appreciated -CT a/p showing thicken bladder wall -out patient cystoscopy scheduled Plan Assessment & Plan (1) Alcoholic intoxication: (2) listeria bacteremia 3. diffuse skin outbreak in the foot and lower extremity (3) Alcoholic hepatitis, (4) Thrombocytopenia: (5) Homelessness: (6) hypomagnesiumia Plan The patient is a 44-year-old male with PMH alcohol abuse, history of alcohol withdrawal thrombocytopenia, homelessness and alcoholic hepatitis. He presented to the ED with a 1 hour long episode of shortness of breath earlier in the day today. high d-dimer He underwent a CTA chest PE negative, and venous Dopplers of bilateral extremities which was negative for DVT. . He continues to be homeless. he's was found to has hypomagnesemia, thrombocytopenia, and hyponatremia he's was completing of big toe pain and started on gabapentin and tramadol. but then developed rash outbreak in his foot. his gabapentin and tramadol held and started benadryl and prednisone in addition, on 10/25/2024 11pm, he's developed fever episode and blood culture positive, listeria. he's was started on ampicillin, ceftriaxone, vancomycin and IV acyclovir, his echocardiogram negative for vegetation, denied hx of IV drug use Homelessness- Ask social media job titles to evaluate patient for possible available services D/C planned for 11/01 Admission and Anticipated Discharge Date Admission Date: October 23, 2024 Subjective No events overnight. Pt resting in bed. Review of Systems Review of Systems: CONST: Negative for fever, body aches and chills. HENT: Negative for neck pain/stiffness, headache, congestion, sore throat, swelling. EYES: Negative for discharge/pain or vision changes. RESP: Negative for cough/hemoptysis and shortness of breath. CV: Negative chest pain, difficulty breathing, palpitations. ABD: Negative pain, nausea, vomiting. : Negative increase frequency, dysuria, blood in urine or stool. MUSC: Negative for muscle aches, edema. SKIN: Negative rash, lesions/sores. NEURO: Negative headache, dizziness, weakness. Physical Exam Physical Exam: GENERAL APPEARANCE NAD, activity normal for age, well developed/ well nourished, no cyanosis, pallor, or diaphoresis. EYES lids/conjunctiva normal. EARS/NOSE/THROAT Mucous membranes moist, nares normal, lips/teeth normal uvula midline without oral pharyngeal erythema, exudate or swelling TMs normal bilaterally. No lymphangitis/lymphedema. HEAD/NECK normocephalic atraumatic, no facial trauma, neck is supple. RESPIRATORY respiratory effort normal, speaks in full sentences, no tripod position, no accessory muscle use. Lungs clear to auscultation without rhonchi, wheezes, rales CARDIAC Regular rate and rhythm, no edema. ABDOMINAL Soft, ND/NT. No evidence of fluid wave. No pulsatile masses on exam, rebound tenderness, Tsang sign or pain over Mcburney's point. MUSCLES/EXTREMITIES No abnormal range of motion, no swelling. SKIN B/L lower ext petechial rash NEUROLOGICAL Speech is clear and appropriate. Normal level of consciousness. Gait and coordination are normal. 5/5 strength in all extremities. PSYCH Normal mood and affect. Judgement/competence is appropriate Results & Data Results & Data Vital Signs (Past 12 Hours) Vital Signs Temp Pulse Pulse Resp BP BP Pulse Ox 10/31/24 07:46 10/31/24 07:28 36.4 C L 84 18 94/55 L 95/57 L 99 10/30/24 22:18 78 O2 Del Method 10/31/24 07:46 Room Air 10/31/24 07:28 Room Air 10/30/24 22:18 PG Care Time/CCT Total # of Minutes Spent Total Time Spent with Patient: Total time spent is greater than 50% in coordination of care (as documented) at patient's floor/unit and/or counseling patient: Coding Level of Care Code 60538 SUB INP/OBS CARE 2/35MIN Diagnoses Bacteremia R78.81 Skin rash R21 ETOH abuse F10.10 Gross hematuria R31.0
--- NOTE | 2024-10-31 13:22 | Urology Progress Note ---
Date of Service October 31, 2024 Assessment & Plan (1) Hematuria: Plan 44yo male who presented with shortness of breath and admitted to medicine team for management of BCx + Listeria, skin rash, and ETOH abuse. Urology was consulted for hematuria. Pt was found to have microscopic hematuria on UAs from prior hospitalization (10/03/24). Urine culture was negative. He has also reported intermittent episodes of painless gross hematuria over the past several months with the most recent episode today. He does endorse some urinary urgency but otherwise no flank or abdominal pain or dysuria. Renal ultrasound from 10/28 shows some nonspecific bladder wall thickening, but otherwise no renal mass or hydronephrosis identified. Prior CTAP 08/2024 with no significant findings. He is afebrile, VSS. Urinalysis 10/30 showing 1+ LE, 610 WBC, 35 RBC, negative bacteria, negative nitrite. He continues on oral Bactrim for treatment of blood cultures + for listeria. CT abdomen pelvis reviewed and shows no renal or ureteral stones, no hydronephrosis, partial distended urinary bladder with nonspecific wall thickening again noted. Recommend outpatient cystoscopy to complete the hematuria workup -he is agreeable. Will send message to our office to arrange. Continue to monitor ability to void, bladder scan PRN. Continue care and management per primary team. Urology will sign off. Please contact us with any further questions or concerns. Admission and Anticipated Discharge Date Admission Date: October 23, 2024 Subjective Pt seen at bedside. Awake and resting in bed. No acute distress. Reports intermittent episodes of gross hematuria with voiding. Still with some urinary urgency. Feels he is emptying his bladder well for the most part. No fevers or flank pain. Review of Systems Constitutional: as per Subjective / HPI Genitourinary: + as per Subjective / HPI Physical Exam Constitutional: no acute distress Respiratory: no respiratory distress and no labored breathing Musculoskeletal: Head/Neck/Chest: normocephalic Neurologic: moves all extremities and awake Psychiatric: A+Ox3, euthymic affect Results & Data Vital Signs (Past 12 Hours) Vital Signs Temp Pulse Resp BP BP Pulse Ox O2 Del Method 10/31/24 11:12 36.5 C 78 18 102/60 96 Room Air 10/31/24 07:46 Room Air 10/31/24 07:28 36.4 C L 84 18 94/55 L 95/57 L 99 Room Air PG Care Time/CCT Total # of Minutes Spent Total Time Spent with Patient: Total time spent is greater than 50% in coordination of care (as documented) at patient's floor/unit and/or counseling patient: Coding Level of Care Code 36233 SUB INP/OBS CARE 2/35MIN Diagnoses Hematuria R31.9
[2024-10-31] MEDS: DICLOFENAC SOD 1% GEL 100 GM TUBE EXT SCH (17:49)
[2024-11-01] MEDS ORDERED: SULFAMETHOXAZOLE/TRIMETHOPRIM DS 800/160MG TAB PO SCH
--- NOTE | 2024-11-01 10:00 | Discharge Summary ---
Discharge Summary Date of Service November 01, 2024 Principal Dx & Hospital Course #1 = Principal Diagnosis (1) Bacteremia: -blood cultures + for listeria -echo negative for vegetation -ID consult appreciated -abx changed to TMP/SMX DS PO TID -plan to continue to for 2-week course (2) Skin rash: -possibly drug related -tramadol and gabapentin held -dermatology consulted (3) ETOH abuse: CIWA protocol ativan PRN no signs of withdrawal (4) Gross hematuria: -UA -urology consult appreciated -CT a/p showing thicken bladder wall -out patient cystoscopy scheduled Plan Assessment & Plan (1) Alcoholic intoxication: (2) listeria bacteremia 3. diffuse skin outbreak in the foot and lower extremity (3) Alcoholic hepatitis, (4) Thrombocytopenia: (5) Homelessness: (6) hypomagnesiumia Plan The patient is a 44-year-old male with H alcohol abuse, history of alcohol withdrawal thrombocytopenia, homelessness and alcoholic hepatitis. He presented to the ED with a 1 hour long episode of shortness of breath earlier in the day today. high d-dimer He underwent a CTA chest PE negative, and venous Dopplers of bilateral extremities which was negative for DVT. . He continues to be homeless. he's was found to has hypomagnesemia, thrombocytopenia, and hyponatremia he's was completing of big toe pain and started on gabapentin and tramadol. but then developed rash outbreak in his foot. his gabapentin and tramadol held and started benadryl and prednisone in addition, on 10/25/2024 11pm, he's developed fever episode and blood culture positive, listeria. he's was started on ampicillin, ceftriaxone, vancomycin and IV acyclovir, his echocardiogram negative for vegetation, denied hx of IV drug use Homelessness- Ask social media analyst to evaluate patient for possible available services D/C planned for 11/01 Admission HPI Per Admitting Provider The patient is a 44-year-old male with past medical history including alcohol abuse, alcohol intoxication, history of alcohol withdrawal syndrome, thrombocytopenia, homelessness and alcoholic hepatitis. He presented to the emergency department with complaint of a 1 hour long episode of shortness of breath earlier in the day today. He had elevated D-dimer in the emergency department of 1560. He underwent a CTA chest PE protocol which was negative, and venous Dopplers of bilateral extremities which was negative for DVT. Patient has no further symptoms of shortness of breath. He continues to be homeless. He continues to have significant alcohol ingestion, with current alcohol level 450.6. I have asked emergency department to give him a liter of normal saline to start with, and he will be admitted to the hospital for monitoring of alcohol withdrawal, and attempt to help him find a place to live. Discharge Exam GENERAL APPEARANCE NAD, activity normal for age, well developed/ well nourished, no cyanosis, pallor, or diaphoresis. EYES lids/conjunctiva normal. EARS/NOSE/THROAT Mucous membranes moist, nares normal, lips/teeth normal uvula midline without oral pharyngeal erythema, exudate or swelling TMs normal bilaterally. No lymphangitis/lymphedema. HEAD/NECK normocephalic atraumatic, no facial trauma, neck is supple. RESPIRATORY respiratory effort normal, speaks in full sentences, no tripod position, no accessory muscle use. Lungs clear to auscultation without rhonchi, wheezes, rales CARDIAC Regular rate and rhythm, no edema. ABDOMINAL Soft, ND/NT. No evidence of fluid wave. No pulsatile masses on exam, rebound tenderness, Tsang sign or pain over Mcburney's point. MUSCLES/EXTREMITIES No abnormal range of motion, no swelling. SKIN B/L lower ext petechial rash NEUROLOGICAL Speech is clear and appropriate. Normal level of consciousness. Gait and coordination are normal. 5/5 strength in all extremities. PSYCH Normal mood and affect. Judgement/competence is appropriate Discharge Plan Discharge Items Reason For Visit: ALCOHOL INTOX, ALCOHOLIC HEPATITIS, HOMELESS, THRO Discharge Diagnosis: listeria bacteremia Condition on Discharge: Fair Activity: Resume your previous activity Non-emergency contact: Primary Care Provider Call non-emergency contact if: you have any medication questions Follow-up/Referrals: PCP,NO [Primary Care Provider] - Diet: Regular Addtl Attending Provider Instructions: Follow up urology for out patient cystoscopy Pending Studies at Discharge: No Stand-Alone Forms: My [employer], Smoking Cessation Medications and DC Order Prescriptions: New thiamine HCl (vitamin B1) 100 mg Tablet 100 mg PO QAM Qty: 30 0RF sulfamethoxazole-trimethoprim [Bactrim DS] 800-160 mg Tablet 2 tab PO TID Qty: 16 0RF folic acid 1 mg Tablet 1 mg PO QAM Qty: 30 0RF Continued ibuprofen 200 mg Tablet 200 mg PO DIRECTED PRN (Reason: Pain) gabapentin 300 mg Capsule 300 mg PO TID Qty: 60 0RF Rx Instructions: PER PT "TOO EXPENSIVE, NEVER PICKED IT UP". Admission Data Admit Date/Time: 10/23/24 20:46 Attending Provider: Eber Stein Admit Provider: Phoenix Mercedes Primary Care Provider: PCP,NO Other Providers: Phoenix Mercedes; Zack Loredo; Valencia [facility] Hospital Stay Data Consultations 10/23/24 20:11 ED Decision to Admit Stat 10/26/24 15:44 Consult Infectious Diseases Stat 10/27/24 14:39 Consult Dermatology Routine 10/30/24 11:23 Consult Urology Routine Diagnostic Imagining Performed 10/23/24 16:43 CT angio chest PE protocol Stat 10/23/24 16:46 US leg [US venous doppler LE BI] Stat 10/26/24 17:[address] [CT head/brain wo con] Urgent 10/28/24 11:28 US renal/blad retro comp Routine 10/30/24 14:57 CT Abd and Pelvis [CT abd pelvis wo con] Routine Pending Results Patient Have Any Pending Studies at Discharge: No Discharge Instructions Given to Patient (Per Discharging Provider) Follow up urology for out patient cystoscopy Total Time Total Time Spent Total Time Spent (In Minutes): 50 Coding Level of Care Code 29960 INP/OBS DISCH >30 MIN Diagnoses Bacteremia R78.81 Skin rash R21 ETOH abuse F10.10 Gross hematuria R31.0
[2024-11-01 11:25] VITALS: BP 102/62; PULSE 74; RESP 18; TEMP 97.9; O2SAT 100
[2024-11-01] MEDS ORDERED: SEPTRA DS HOME PACK PO ONE (12:40)
== END 2024-11-01 13:20 | disposition home or self-care (01) | DRG 868 ==
LOC: SUATTDRO → ED 14:15 → SUATTDRO 20:46 → 4W 20:46